=== PATIENT | male | born 1945 | race Caucasian/White ===

== ENCOUNTER 2020-06-01 15:20 | Outpatient (CLI) | payer MEDICARE, SELFPAY ==
--- NOTE | ~2020-06-01 | CT_ITS ---
EXAMINATION: CT abdomen w con DATE: 06/01/2020 17:09 INDICATION: Renal cell carcinoma. TECHNIQUE: Computed tomography (CT) of the abdomen and pelvis was performed with 100 cc Omnipaque 350 intravenous contrast. The dose-length product was 1028.39 mGy-cm. Automated exposure control and ite rative reconstruction technique were employed. COMPARISON: CT dated 09/10/2019 FINDINGS: Status post partial right nephrectomy for renal cell carcinoma. There are parapelvic and bi lateral renal cysts. Lung bases unremarkable. Cardiomegaly. There is atherosclerosis of the aorta and coronary arteries. F atty infiltration of the liver. The spleen, pancreas are unremarkable. There are stable bilateral adr enal nodules, most likely benign adenomas. Gallbladder is present. Moderate thoracic and lumbar spond ylosis. IMPRESSION: 1. Status post partial right nephrectomy for renal cell carcinoma. No evidence for residual/recurrent or metastatic disease. Reviewed, dictated and finalized at location A.
[2020-06-01 17:03] LABS: Estimated Glomerular Filt Rate > 60
== END 2020-06-01 15:21 | disposition home or self-care (01) ==
LOC: ANHIMG 15:24
PROVIDERS: PCP Internal Medicine; Visit Provider Urology
DX: C64.1 Malignant neoplasm of right kidney, except renal pelvis (principal)
CPT/HCPCS: 74160; Q9967

== ENCOUNTER 2020-10-31 09:47 | Outpatient (CLI) | payer MEDICARE, SELFPAY ==
[2020-10-31 10:17] LABS: Anion Gap 9 mmol/L (8-16); Blood Urea Nitrogen 35 mg/dL (9-20); Calcium 9.2 mg/dL (8.4-10.2); Carbon Dioxide 28 mmol/L (22-30); Chloride 99 mmol/L (98-107); Estimated Glomerular Filt Rate 59; Glucose 146 mg/dL (75-110); Potassium 4.3 mmol/L (3.4-5.0); Sodium 136 mmol/L (137-145)
[2020-10-31 11:11] LABS: Hemoglobin A1C 6.3 % (<5.7)
== END 2020-10-31 09:48 | disposition home or self-care (01) ==
LOC: ANHLAB 09:48
PROVIDERS: Family Provider Internal Medicine; PCP Internal Medicine; Visit Provider Internal Medicine
DX: E11.9 Type 2 diabetes mellitus without complications (principal)
CPT/HCPCS: 36415; 80048; 83036

== ENCOUNTER → 2021-01-23 11:14 | Outpatient (CLI) | payer MEDICARE, SELFPAY ==
--- NOTE | ~2021-01-23 | CT_ITS ---
EXAMINATION: CT abdomen wo/w con DATE: 01/23/2021 12:08 INDICATION: Renal cell carcinoma. TECHNIQUE: Computed tomography (CT) of the abdomen was performed without and with 100 mL Omnipaque 35 0 intravenous contrast. Automated exposure control and iterative reconstruction technique were employ ed. The dose-length product was 1693.64 mGy-cm. COMPARISON: CT abdomen 06/01/2020, 09/10/2019 FINDINGS: The visualized portions of the lung bases demonstrate mild atelectasis. No pleural effusion . The heart size is normal. There are coronary artery calcifications. No pericardial effusion. There is a small sliding hiatal hernia. There is diffuse hepatic steatosis. The gallbladder, spleen, and pa ncreas are normal. There are chronic low-attenuation mass in the adrenal glands measuring up to 2.7 c m on the left, consistent with adenomas. There are changes of partial right nephrectomy. There is cor tical thinning of the kidneys. There are cysts in the kidneys measuring up to 2.9 cm on the left. The re are no dilated loops of bowel. There are no pathologically enlarged lymph nodes. There is no free intraperitoneal fluid. There is moderate lumbar spondylosis. There are bridging endplate osteophytes at multiple levels in the spine, consistent with diffuse idiopathic skeletal hyperostosis (DISH). IMPRESSION: 1. Changes of partial right nephrectomy. No residual or recurrent neoplasm or metastatic disease. Reviewed, dictated and finalized at location B. IMPRESSION: 1. Changes of partial right nephrectomy. No residual or recurrent neoplasm or m etastatic disease.
[2021-01-23 11:52] LABS: Estimated Glomerular Filt Rate > 60
== END ==
PROVIDERS: Visit Provider Urology
DX: C64.1 Malignant neoplasm of right kidney, except renal pelvis (principal); I25.10 Atherosclerotic heart disease of native coronary artery without angina pectoris; M47.816 Spondylosis without myelopathy or radiculopathy, lumbar region; Z90.5 Acquired absence of kidney
CPT/HCPCS: 74170; Q9967

== ENCOUNTER → 2021-01-25 13:44 | Outpatient (CLI) | payer MEDICARE, SELFPAY ==
--- NOTE | ~2021-01-25 | XR_ITS ---
EXAMINATION: XR chest 2V DATE: 01/25/2021 14:06 INDICATION: Renal mass TECHNIQUE: PA and lateral views of the chest were obtained. COMPARISON: Chest radiograph dated 08/26/2016 FINDINGS: The lungs are clear with no focal airspace opacities, pulmonary edema, pleural effusion or pneumothor ax. The cardiomediastinal silhouette is normal. There are bridging osteophytes at multiple levels in the spine, consistent with diffuse idiopathic skeletal hyperostosis (DISH). IMPRESSION: 1. No acute cardiopulmonary disease. Reviewed, dictated and finalized at location A.
== END ==
PROVIDERS: PCP Internal Medicine; Visit Provider Urology
DX: N28.89 Other specified disorders of kidney and ureter (principal)
CPT/HCPCS: 71046

== ENCOUNTER 2021-02-24 16:38 | Emergency (ER) | payer MEDICARE, SELFPAY ==
[2021-02-24 16:52] VITALS: BP 133/73; PULSE 88; RESP 20; TEMP 36.4; O2SAT 96
[2021-02-24] MEDS: TETANUS,DIPHTHERIA,AC PERTUSSIS ADULT (0.5 ML) BOOSTRIX IM (18:17)
--- NOTE | 2021-02-24 18:24 | ED.GENADULT ---
HPI - General Adult General Chief complaint: Wound/Laceration Stated complaint: fish hook in finger Time Seen by Provider: 02/24/21 17:56 Source: patient and RN notes reviewed Mode of arrival: ambulatory Limitations: no limitations History of Present Illness HPI narrative: Patient is a 75-year-old male who presents with fishhook stuck in the right thumb patient was cleaning his tackle box when this occurred patient is unsure as to tetanus status patient notes mild aching pain presents in no distress has not taken anything for his symptoms Related Data Home Medications Medication Instructions Recorded Confirmed aspirin 325 mg PO DAILY 09/09/19 08/09/20 magnesium 200 mg PO DAILY 09/09/19 08/09/20 metoprolol tartrate 25 mg PO BID 09/09/19 08/09/20 omega 4-ohx-ihg-fish oil [Fish Oil] 1 cap PO DAILY 09/09/19 08/09/20 Allergies Allergy/AdvReac Type Severity Reaction Status Date / Time meperidine Allergy Mild Confusion Verified 08/07/20 13:17 Review of Systems Review of Systems: All systems reviewed & are unremarkable except as noted in HPI and below PMFSH Past Medical History Medical History (Updated 02/24/21 @ 18:28 by Prince Patel PA-C) Afib Arthritis Cataracts, both eyes Cellulitis CPAP (continuous positive airway pressure) dependence Diabetes Elbow fracture, right History of blood transfusion History of cardioversion x3 HTN (hypertension) Hyperlipidemia Kidney stone Peripheral neuropathy Sleep apnea Tremor of both hands Surgical History Surgical History H/O cardiac radiofrequency ablation H/O inguinal hernia repair History of bilateral knee replacement History of right hip replacement Family History Family History Mother Patient's mother is in good health Father Patient's father is in good health Sibling Patient's brother is in good health Social History Social History Smoking status: Never smoker Second hand tobacco smoke exposure: No Alcohol intake: never Substance use: never Gender identity (if verbalized by the patient): Male Spiritual care concerns: No Agree to blood products: Yes Exam Narrative: Exam Narrative: GENERAL: Well-appearing, well-nourished, and in no acute distress. HEAD: Normocephalic, atraumatic. EYES: PERRLA and EOMI. ENT: Nares clear, no rhinorrhea or epistaxis. Mucous membranes moist. EXTREMITIES: Normal range of motion. No edema. SKIN: Warm, dry, no rash. [place] lodged in the palmar aspect distal phalanx right thumb NEURO: No focal deficits. Alert and oriented x3. Neurovascularly intact PSYCH: Normal mood and affect. Course Course Emergency Course: [place] removed from thumb tetanus updated Vital Signs Vital signs: Vital Signs Temperature 97.6 F 02/24/21 16:52 Pulse Rate 88 02/24/21 16:52 Respiratory Rate 20 02/24/21 16:52 Blood Pressure 133/73 02/24/21 16:52 Pulse Oximetry 96 02/24/21 16:52 Temperature 97.6 F 02/24/21 16:52 Pulse Rate 88 02/24/21 16:52 Respiratory Rate 20 02/24/21 16:52 Blood Pressure 133/73 02/24/21 16:52 Pulse Oximetry 96 02/24/21 16:52 Procedures Other Procedure Procedure 1: Other Procedure: Patient's wound was prepped with Technicare scrub with 1% lidocaine local. Hemostats 11 blade were used to make small opening and retrieve the small metallic foreign body neurovascularly intact pre and post procedure. Pressure irrigation was used to clean the wound. Antibiotic ointment nonadhesive 4 x 4 and Coban placed post procedure Medical Decision Making MDM Narrative Medical decision making narrative: Patients injury or pain is consistent with musculoskeletal etiology. No signs of neurological or vascular compromise on exam. Compartments and tisues are soft without signs of compart
[2021-02-24 18:53] VITALS: BP 133/73; PULSE 82; RESP 19; TEMP 36.7; O2SAT 98
== END 2021-02-24 18:53 | disposition home or self-care (01) ==
LOC: ANHED 18:30
PROVIDERS: Emergency Provider Emergency Medicine; PCP Internal Medicine
DX: S61.041A Puncture wound with foreign body of right thumb without damage to nail, initial encounter (principal); Z23 Encounter for immunization; I48.91 Unspecified atrial fibrillation; I10 Essential (primary) hypertension; E78.5 Hyperlipidemia, unspecified; E11.42 Type 2 diabetes mellitus with diabetic polyneuropathy; M19.90 Unspecified osteoarthritis, unspecified site; Z87.442 Personal history of urinary calculi; Z79.82 Long term (current) use of aspirin; Z79.4 Long term (current) use of insulin; G47.30 Sleep apnea, unspecified; Z96.653 Presence of artificial knee joint, bilateral; Z96.641 Presence of right artificial hip joint; W26.8XXA Contact with other sharp object(s), not elsewhere classified, initial encounter
CPT/HCPCS: 10120; 90471; 90715; 99282

== ENCOUNTER 2021-08-22 07:59 | Outpatient (CLI) | payer MEDICARE, SELFPAY ==
[2021-08-22 08:26] LABS: Basophils Percent Auto 0.7 % (0.2-1.2); Eosinophils Absolute Auto 0.3 K/mm3 (0-0.3); Eosinophils Percent Auto 4.5 % (0-4.4); Hematocrit 43.3 % (42.0-52.0); Hemoglobin 14.3 g/dL (14.0-18.0); Immature Granulocyte Absolute 0.02 K/mm3 (0.00-0.031); Immature Granulocyte Percent A 0.3 % (0-0.5); Lymphocytes Absolute Auto 1.46 K/mm3 (0.9-3.2); Lymphocytes Percent Auto 24.6 % (18.3-44.2); Mean Corpuscular Hemoglobin 29.7 pg (26-34); Mean Platelet Volume 10.6 fl (7.4-10.4); Monocytes Absolute Auto 0.6 K/mm3 (0.1-0.6); Monocytes Percent Auto 10.3 % (2.6-8.5); Neutrophils Absolute Auto 3.5 K/mm3 (1.3-6.7); Neutrophils Percent Auto 59.6 % (45.5-73.1); Platelet Count Result 156 k/mm3 (150-375); Red Blood Count 4.81 M/mm3 (4.6-6.20); Red Cell Distribution Width 14.3 % (11.5-14.5); White Blood Count 5.9 K/mm3 (4.5-10.0)
[2021-08-22 08:41] LABS: Alanine Aminotransferase 20 U/L (4-50); Albumin Level 4.3 g/dL (3.5-5.1); Alkaline Phosphatase 50 U/L (38-126); Anion Gap 8 mmol/L (8-16); Aspartate Amino Transferase 27 U/L (17-59); Bilirubin,Total 0.6 mg/dL (0.2-1.3); Blood Urea Nitrogen 38 mg/dL (9-20); Calcium 9.4 mg/dL (8.4-10.2); Carbon Dioxide 27 mmol/L (22-30); Chloride 98 mmol/L (98-107); Cholesterol 243 mg/dL (0-200); Estimated Glomerular Filt Rate > 60; Glucose 152 mg/dL (65-110); HDL Direct 32 mg/dL; Magnesium 1.7 mg/dL (1.6-2.3); Potassium 3.9 mmol/L (3.4-5.0); Sodium 133 mmol/L (137-145); Triglycerides 213 mg/dL (<150)
[2021-08-22 08:51] LABS: LDL Cholesterol Direct 167 mg/dL
[2021-08-22 09:06] LABS: Hemoglobin A1C 7.3 % (<5.7)
[2021-08-22 09:45] LABS: Folic Acid 11.1 ng/mL (2.76->20)
== END 2021-08-22 08:00 | disposition home or self-care (01) ==
LOC: ANHLAB 08:02
PROVIDERS: PCP Internal Medicine; Visit Provider Internal Medicine
DX: E11.9 Type 2 diabetes mellitus without complications (principal); R53.83 Other fatigue; I10 Essential (primary) hypertension
CPT/HCPCS: 36415; 80053; 80061; 82607; 82746; 83036; 83735; 84443; 85025

== ENCOUNTER 2021-09-18 08:16 | Outpatient (RCR) | payer MEDICARE, SELFPAY ==
[2021-09-18] MEDS: ACETAMINOPHEN 325 MG TABLET 650 MG PO (11:36)
[2021-09-18] MEDS: diphenhydrAMINE HCl CAP 25 MG CAPSULE PO (11:37)
[2021-09-18] MEDS: FAMOTIDINE 20 MG TABLET PO (11:37)
[2021-09-18 11:45] VITALS: BP 173/80; PULSE 62; RESP 20; TEMP 36.9; O2SAT 97
[2021-09-18 13:11] VITALS: BP 164/70
--- NOTE | 2021-09-19 08:51 | PC.NURSE ---
Called Mr Guy and he is doing well this morning. He stated he slept well but did have shortness of breath yesterday. I told him that if he continues to have issues he needs to reach out to his PCP or go to the Emergency Room, and he voiced understanding, he said he feels it is not that bad though. He had no other questions at this time.
== END 2021-09-18 17:00 ==
LOC: AMCINF 08:16
PROVIDERS: PCP Internal Medicine; Visit Provider Internal Medicine Hematology & Oncology
DX: U07.1 COVID-19 (principal); E11.9 Type 2 diabetes mellitus without complications
CPT/HCPCS: A9270; M0245; Q0245

== ENCOUNTER 2022-02-10 08:52 | Outpatient (CLI) | payer MEDICARE, SELFPAY ==
--- NOTE | ~2022-02-10 | XR_ITS ---
XR chest 2V DATE: 02/10/2022 09:19 INDICATION: Renal cell carcinoma TECHNIQUE: PA and lateral views COMPARISON: 01/25/2021 2 view chest FINDINGS: Borderline heart size. Aortic calcification, ectasia and mild tortuosity. No hilar or media stinal enlargement. Mild elevation of the right leaf of the diaphragm. No pulmonary infiltrate or consolidation, pleural effusion or pulmonary vascular congestion or pneumo thorax is detected. Degenerative spurring and dextroscoliosis of the thoracic spine. IMPRESSION: Borderline heart size Aortic atherosclerosis Mild elevation right diaphragm No active pulmonary disease Reviewed, dictated and finalized at location B.
--- NOTE | ~2022-02-10 | CT_ITS ---
EXAMINATION: CT abdomen pelvis wo/w con DATE: 02/10/2022 09:47 INDICATION: Renal cell carcinoma of right kidney TECHNIQUE: Computed tomography (CT) of the abdomen and pelvis was performed without and subsequently with 100 CC Omnipaque 300 intravenous contrast. Automated exposure control and iterative reconstructi on technique were employed. Exam dose: 2670.52 mGy-cm total exam DLP. COMPARISON: 01/23/2021 CT abdomen FINDINGS: The lung bases are clear of infiltrate or consolidation. There is minimal atelectasis or sc arring at the anterior basilar right lower lobe. Normal heart size. Extensive coronary artery calcifications. There is calcification but normal calibe r of the descending thoracic aorta and abdominal aorta. There is slight left pleural effusion. No right pleural effusion. No pericardial effusion. There is hepatic steatosis. Small stones are noted in the dependent aspect of the gallbladder. No gallbladder wall thickening or pericholecystic fluid or fat stranding. No bile duct or pancreatic duct dilatation. No pancreatic mas s lesion or calcification. Normal splenic size. Small sliding hiatal hernia. Stable bilateral adrenal masses since 01/23/2021, most likely bilateral adrenal adenomas. Status post right partial nephrectomy, stable in appearance since 01/23/2021. Multiple bilateral renal cortical and parapelvic cysts. No urinary tract calculus or hydroureteronephrosis. No intraperitoneal or retroperitoneal or pelvic mass lesion or adenopathy or ascites is evident. Evaluation is limited in the pelvic area due to extensive streak artifact from bilateral hip replacem ents. No bowel obstruction, bowel wall thickening, pneumatosis or intraperitoneal free air. Small fat-containing umbilical hernia. Diffuse idiopathic skeletal hyperostosis of the thoracic spine. Multilevel degenerative disc disease of the lumbar spine. No suspicious osteolytic or osteoblastic lesions are noted. IMPRESSION: Status post right partial nephrectomy; no recurrent tumor is evident Bilateral renal cysts are again noted Stable bilateral adrenal masses, likely adenomas Suspected cholelithiasis Extensive coronary calcifications Reviewed, dictated and finalized at Location A. Reviewed, dictated and finalized at location B. IMPRESSION: Status post right partial nephrectomy; no recurrent tumor is evide nt Bilateral renal cysts are again noted Stable bilateral adrenal masses, likely adenomas Suspected cholelithiasis Extensive coronary calcifications
[2022-02-10 09:35] LABS: Estimated Glomerular Filt Rate > 60
== END 2022-02-10 08:53 | disposition home or self-care (01) ==
PROVIDERS: PCP Internal Medicine; Visit Provider Urology
DX: C64.1 Malignant neoplasm of right kidney, except renal pelvis (principal); Z90.5 Acquired absence of kidney; N28.1 Cyst of kidney, acquired; E27.9 Disorder of adrenal gland, unspecified; I25.10 Atherosclerotic heart disease of native coronary artery without angina pectoris; R91.8 Other nonspecific abnormal finding of lung field
CPT/HCPCS: 71046; 74178; Q9967

== ENCOUNTER 2022-02-16 19:45 | Emergency (ER) | payer MEDICARE, SELFPAY ==
--- NOTE | 2022-02-16 19:52 | ED.EXTPRO ---
HPI - Extremity Problem General Chief complaint: Extremity Injury, Upper Stated complaint: knot on lt wrist Time Seen by Provider: 02/16/22 20:00 Source: patient and RN notes reviewed Mode of arrival: ambulatory Limitations: no limitations History of Present Illness HPI Narrative: 76-year-old male presents concern for a knot on his left wrist. He reports for several weeks he has had a decreased talcer in his left hand and left thumb without injury. Reports yesterday he noticed a hard knot that popped up in the the left thumb on the palmar aspect of the wrist. He reports a slight burning sensation to the thumb. He was concerned that it could be a blood clot. He denies intervention for this problem. He denies decreased sensation or range of motion in the wrist or digits Related Data Home Medications Medication Instructions Recorded Confirmed aspirin 325 mg PO DAILY 09/09/19 09/18/21 magnesium 200 mg PO DAILY 09/09/19 09/18/21 metoprolol tartrate 25 mg PO BID 09/09/19 09/18/21 omega 2-yuj-dzd-fish oil [Fish Oil] 1 cap PO DAILY 09/09/19 09/18/21 Allergies Allergy/AdvReac Type Severity Reaction Status Date / Time meperidine Allergy Mild Confusion Verified 02/16/22 20:04 Review of Systems Review of Systems: CONSTITUTIONAL: Denies malaise, chills, sweats, or fever. SKIN: Denies rash or itching. Denies lacerations, abrasions, warmth, redness MUSCULOSKELETAL: Reports decreased left talcer strength, nodule on the left wrist under the first digit NEUROLOGIC: Denies numbness, weakness All systems reviewed & are unremarkable except as noted in HPI and below [facility] Past Medical History Medical History (Updated 02/16/22 @ 20:10 by Kenyetta Murphy NP) Afib Arthritis Cataracts, both eyes Cellulitis CPAP (continuous positive airway pressure) dependence Diabetes Elbow fracture, right History of blood transfusion History of cardioversion x3 HTN (hypertension) Hyperlipidemia Kidney stone Peripheral neuropathy Sleep apnea Tremor of both hands Surgical History Surgical History H/O cardiac radiofrequency ablation H/O inguinal hernia repair History of bilateral knee replacement History of right hip replacement Family History Family History Mother Patient's mother is in good health Father Patient's father is in good health Sibling Patient's brother is in good health Social History Social History Smoking status: Never smoker Second hand tobacco smoke exposure: No Alcohol intake: never Substance use: never Gender identity (if verbalized by the patient): Male Spiritual care concerns: No Agree to blood products: Yes Comments At time of signature, agree with nursing past medical, surgical, social and family history. There is no relevant family history pertinent to the presenting complaint Exam Narrative: GENERAL: Well-appearing, well-nourished, and in no acute distress. HEAD: Normocephalic, atraumatic. EYES: PERRLA, conjunctivae clear NECK: Supple. CHEST: Speaks in full sentences. No respiratory distress. HEART: Regular rate and rhythm. Normal and equal peripheral pulses. EXTREMITIES: Left wrist, hand, digits have normal strength and sensation, normal range of motion. Mild left wrist edema without erythema or ecchymosis. 5/5 strength with digit flexion and extension. Normal sensation with sensitivity to light touch and pain. No point tenderness. 2 cm firm nonfluctuant nontender nodule noted to the palmar aspect of the wrist beneath the first digit. No open wounds, no skin tenting, no devitalized tissue or atrophy, no trophic changes, no obvious deformity, alignment normal, nearby joints and structures intact. Distal pulses palpable and equal bilaterally, skin warm, dry, pink. Capillary refill less than 3 seconds. SKIN: W
[2022-02-16 19:58] VITALS: BP 168/87; PULSE 72; RESP 18; TEMP 36.3; O2SAT 98
== END 2022-02-16 20:13 | disposition home or self-care (01) ==
PROVIDERS: Emergency Provider Nurse Practitioner; PCP Internal Medicine
DX: R22.32 Localized swelling, mass and lump, left upper limb (principal); I48.91 Unspecified atrial fibrillation; M19.90 Unspecified osteoarthritis, unspecified site; H26.9 Unspecified cataract; I10 Essential (primary) hypertension; E11.42 Type 2 diabetes mellitus with diabetic polyneuropathy; G47.30 Sleep apnea, unspecified; Z96.653 Presence of artificial knee joint, bilateral; Z96.641 Presence of right artificial hip joint; Z79.82 Long term (current) use of aspirin
CPT/HCPCS: 99212; G0463

== ENCOUNTER 2022-02-21 14:06 | Outpatient (CLI) | payer MEDICARE, SELFPAY ==
[2022-02-21 10:29] LABS: Basophils Percent Auto 0.5 % (0.2-1.2); Eosinophils Absolute Auto 0.3 K/mm3 (0-0.3); Eosinophils Percent Auto 4.2 % (0-4.4); Hematocrit 44.5 % (42.0-52.0); Hemoglobin 14.2 g/dL (14.0-18.0); Immature Granulocyte Absolute 0.04 K/mm3 (0.00-0.031); Immature Granulocyte Percent A 0.7 % (0-0.5); Lymphocytes Absolute Auto 1.03 K/mm3 (0.9-3.2); Lymphocytes Percent Auto 17.4 % (18.3-44.2); Mean Corpuscular HGB Conc 31.9 g/dl (32-36); Mean Corpuscular Hemoglobin 29.2 pg (26-34); Mean Corpuscular Volume 91.4 fl (80-100); Mean Platelet Volume 11.3 fl (7.4-10.4); Monocytes Absolute Auto 0.7 K/mm3 (0.1-0.6); Monocytes Percent Auto 11.2 % (2.6-8.5); Neutrophils Absolute Auto 3.9 K/mm3 (1.3-6.7); Platelet Count Result 152 k/mm3 (150-375); Red Blood Count 4.87 M/mm3 (4.6-6.20); Red Cell Distribution Width 13.6 % (11.5-14.5); White Blood Count 5.9 K/mm3 (4.5-10.0)
[2022-02-21 10:43] LABS: Alanine Aminotransferase 23 U/L (6-50); Albumin Level 4.3 g/dL (3.5-5.1); Alkaline Phosphatase 52 U/L (38-126); Anion Gap 9 mmol/L (8-16); Aspartate Amino Transferase 27 U/L (17-59); Bilirubin,Total 0.5 mg/dL (0.2-1.3); Blood Urea Nitrogen 29 mg/dL (9-20); Calcium 9.1 mg/dL (8.4-10.2); Carbon Dioxide 24 mmol/L (22-30); Chloride 99 mmol/L (98-107); Cholesterol 261 mg/dL (0-200); Estimated Glomerular Filt Rate > 60; Glucose 204 mg/dL (65-110); HDL Direct 36 mg/dL; Potassium 4.5 mmol/L (3.4-5.0); Sodium 132 mmol/L (137-145); Triglycerides 262 mg/dL (<150)
[2022-02-21 10:55] LABS: LDL Cholesterol Direct 153 mg/dL
[2022-02-21 10:57] LABS: Creatinine Urine 76.6 mg/dL
[2022-02-21 11:01] LABS: MALB Creatinine Ratio 108.9 mg/g (0-30); Microalbumin Urine Random 83.4 mg/L (0-16.7)
[2022-02-21 11:06] LABS: Hemoglobin A1C 7.8 % (<5.7)
[2022-02-21 11:49] LABS: Folic Acid 8.5 ng/mL (2.76->20)
== END 2022-02-21 14:07 | disposition home or self-care (01) ==
LOC: ANHLAB 14:07
PROVIDERS: PCP Internal Medicine; Visit Provider Internal Medicine
DX: E11.9 Type 2 diabetes mellitus without complications (principal)
CPT/HCPCS: 36415; 80053; 80061; 82043; 82607; 82746; 83036; 84443; 85025

== ENCOUNTER 2022-05-05 12:48 | Outpatient (RCR) | payer MEDICARE, SELFPAY ==
[2022-05-05] MEDS: FAMOTIDINE 20 MG TABLET PO (14:46)
[2022-05-05] MEDS: ACETAMINOPHEN 325 MG TABLET 650 MG PO (14:46)
[2022-05-05] MEDS: diphenhydrAMINE HCl CAP 25 MG CAPSULE PO (14:46)
[2022-05-05 14:49] VITALS: BP 141/71; PULSE 71; TEMP 36.5; O2SAT 98
[2022-05-05] MEDS: BEBTELOVIMAB 175 MG/2 ML VIAL IV PUSH (15:05)
[2022-05-05 15:47] VITALS: PULSE 69; RESP 18; O2SAT 98
== END 2022-05-05 16:00 ==
LOC: AMCINF 12:48
PROVIDERS: PCP Internal Medicine; Referring Provider Internal Medicine; Visit Provider Internal Medicine Hematology & Oncology
DX: U07.1 COVID-19 (principal); C64.9 Malignant neoplasm of unspecified kidney, except renal pelvis; I10 Essential (primary) hypertension; I25.10 Atherosclerotic heart disease of native coronary artery without angina pectoris; E11.9 Type 2 diabetes mellitus without complications
CPT/HCPCS: A9270; M0222; Q0222

== ENCOUNTER 2022-08-27 11:10 | Outpatient (CLI) | payer MEDICARE, SELFPAY ==
[2022-08-27 11:55] LABS: Basophils Percent Auto 0.6 % (0.2-1.2); Eosinophils Absolute Auto 0.2 K/mm3 (0-0.3); Eosinophils Percent Auto 3.4 % (0-4.4); Hematocrit 43.8 % (42.0-52.0); Immature Granulocyte Absolute 0.03 K/mm3 (0.00-0.031); Immature Granulocyte Percent A 0.6 % (0-0.5); Lymphocytes Absolute Auto 1.12 K/mm3 (0.9-3.2); Lymphocytes Percent Auto 20.9 % (18.3-44.2); Mean Corpuscular Volume 90.9 fl (80-100); Mean Platelet Volume 10.5 fl (7.4-10.4); Monocytes Absolute Auto 0.5 K/mm3 (0.1-0.6); Monocytes Percent Auto 9.2 % (2.6-8.5); Neutrophils Absolute Auto 3.5 K/mm3 (1.3-6.7); Neutrophils Percent Auto 65.3 % (45.5-73.1); Platelet Count Result 170 k/mm3 (150-375); Red Blood Count 4.82 M/mm3 (4.6-6.20); Red Cell Distribution Width 13.7 % (11.5-14.5); White Blood Count 5.4 K/mm3 (4.5-10.0)
[2022-08-27 12:09] LABS: Alanine Aminotransferase 28 U/L (6-50); Albumin Level 4.3 g/dL (3.5-5.1); Alkaline Phosphatase 42 U/L (38-126); Anion Gap 10 mmol/L (8-16); Aspartate Amino Transferase 30 U/L (17-59); Bilirubin,Total 0.6 mg/dL (0.2-1.3); Blood Urea Nitrogen 41 mg/dL (9-20); Calcium 8.8 mg/dL (8.4-10.2); Carbon Dioxide 24 mmol/L (22-30); Chloride 101 mmol/L (98-107); Cholesterol 274 mg/dL (0-200); Estimated Glomerular Filt Rate > 60; Glucose 195 mg/dL (65-110); HDL Direct 31 mg/dL; Potassium 4.6 mmol/L (3.4-5.0); Sodium 135 mmol/L (137-145); Triglycerides 195 mg/dL (<150)
[2022-08-27 12:19] LABS: LDL Cholesterol Direct 174 mg/dL
[2022-08-27 12:34] LABS: Creatinine Urine 73.6 mg/dL
[2022-08-27 12:38] LABS: MALB Creatinine Ratio 102.4 mg/g (0-30); Microalbumin Urine Random 75.4 mg/L (0-16.7)
[2022-08-27 12:39] LABS: Prostate Specific Antigen 0.6 ng/mL (< OR = 4.0)
== END 2022-08-27 11:11 | disposition home or self-care (01) ==
LOC: ANHLAB 11:12
PROVIDERS: PCP Physician Assistant; Visit Provider Internal Medicine
DX: R53.83 Other fatigue (principal); E78.5 Hyperlipidemia, unspecified; Z12.5 Encounter for screening for malignant neoplasm of prostate
CPT/HCPCS: 36415; 80053; 80061; 82043; 82607; 82746; 84153; 84443; 85025; G0103

== ENCOUNTER 2023-04-22 08:47 | Outpatient (CLI) | payer MEDICARE, SELFPAY ==
--- NOTE | ~2023-04-22 | CT_ITS ---
CT of the Abdomen and Pelvis: Indication: Renal cell carcinoma Technique: 2.5 mm axial scans were obtained through the abdomen and pelvis prior to and following in travenous administration of 100 cc of Omnipaque 350. Dose reduction technique was used on this scan b y utilizing automated exposure control and iterative reconstruction technique. The dose-length produc t (DLP) was 2755.34 mGy-cm. COMPARISON: 02/10/2022 Findings: Scans through the lung bases are unremarkable. The liver, spleen, and pancreas are within normal limits. Probable tiny gallstones present. Bilateral adrenal nodules are unchanged from prior exam. Bilateral renal cysts are unchanged. There is a fat a ttenuation region at the anterior margin of the right kidney, unchanged from prior exam, which could reflect postoperative change versus angiomyolipoma. There are atherosclerotic calcifications of the a kylie. No lymphadenopathy. No bowel obstruction or bowel wall thickening. There is no evidence to suggest acute appendicitis. Images through the pelvis are degraded by streak artifact from bilateral hip arthroplasty. Urinary bl adder grossly unremarkable. No pelvic mass evident. No ascites seen. Impression: No evidence for active malignancy or metastatic disease. Stable probable postoperative change of the right kidney versus possibly angiomyolipoma. Stable bilateral adrenal nodules, likely adenomas. Cholelithiasis. Reviewed, dictated and finalized at location . Impression: No evidence for active malignancy or metastatic disease. Stable probable postoperative change of the right kidney versus possibly angiom yolipoma. Stable bilateral adrenal nodules, likely adenomas. Cholelithiasis.
--- NOTE | ~2023-04-22 | XR_ITS ---
Clinical Indication: Renal cell carcinoma PA and lateral views of the chest: Comparison: 02/10/2022 Findings: The lungs are clear, without evidence of focal consolidation or pleural effusion. Cardiome diastinal silhouette is stable, enlarged. Bones and soft tissues are unremarkable. Impression: Clear lungs. Please note the chest radiograph is relatively insensitive for small pulmonary metastati c disease. Stable cardiomegaly. Reviewed, dictated and finalized at location . Impression: Clear lungs. Please note the chest radiograph is relatively insensitive for sma ll pulmonary metastatic disease. Stable cardiomegaly.
[2023-04-22 09:31] LABS: Estimated Glomerular Filt Rate 58
== END 2023-04-22 08:48 | disposition home or self-care (01) ==
PROVIDERS: PCP Internal Medicine; Visit Provider Urology
DX: C64.1 Malignant neoplasm of right kidney, except renal pelvis (principal); E27.9 Disorder of adrenal gland, unspecified; K80.20 Calculus of gallbladder without cholecystitis without obstruction; I51.7 Cardiomegaly
CPT/HCPCS: 71046; 74178; Q9967

== ENCOUNTER → 2023-06-25 11:33 | Outpatient (CLI) | payer MEDICARE, SELFPAY ==
--- NOTE | ~2023-06-25 | XR_ITS ---
XR thoracic spine 3V DATE: 06/25/2023 12:32 INDICATION: Fall. Back injury, pain. TECHNIQUE: AP, lateral , swimmer views COMPARISON: None FINDINGS: There is diffuse osteopenia. Prominent degenerative disc disease at C4-5, C5-6. There is mild thoracic dextroscoliosis. No fracture or dislocation. The thoracic pedicles are intac t. There is diffuse idiopathic skeletal hyperostosis. No paraspinal soft tissue thickening. Aortic atherosclerosis. IMPRESSION: Diffuse idiopathic skeletal hyperostosis of the thoracic spine Mild thoracic dextro scoliosis Osteopenia Reviewed, dictated and finalized at location A.
== END ==
PROVIDERS: PCP Internal Medicine; Visit Provider Physician Assistant
DX: M85.88 Other specified disorders of bone density and structure, other site (principal); M41.9 Scoliosis, unspecified
CPT/HCPCS: 72072

== ENCOUNTER 2023-08-05 01:06 | Day surgery (SDC) | payer MEDICARE, SELFPAY ==
[2023-08-05] VITALS (10 sets, daily range): BP systolic 103–160; BP diastolic 69–105; PULSE 66–97; RESP 16–23; TEMP 36.7; O2SAT 92–98; BMI 38.0
--- NOTE | 2023-08-05 08:30 | ECG_ITS ---
Measurements Intervals [place] Rate: 72 P: 58 [place]: 240 QRS: -50 QRSD: 169 T: -20 QT: 441 QTc: 484 Interpretive Statements SINUS RHYTHM WITH FIRST DEGREE AV BLOCK ATRIAL AND VENTRICULAR PREMATURE COMPLEXES WITH OCCASIONAL SUPRAVENTRICULAR PREMAT RIGHT BUNDLE BRANCH BLOCK LEFT ANTERIOR FASCICULAR BLOCK CANNOT RULE OUT SEPTAL INFARCT, AGE INDETERMINATE ABNORMAL ECG COMPARED TO ECG 08/05/2023 08:50:39 SINUS RHYTHM NOW PRESENT FIRST DEGREE AV BLOCK NOW PRESENT Electronically Signed On 08-05-2023 10:58:00 CDT by Bishnu Florence D.O.
--- NOTE | 2023-08-05 09:06 | WPDMODSED ---
Moderate Sedation Note-Pt Data Patient Data Diagnosis: Atrial fibrillation Present Complaint: Atrial fibrillation Procedure to be performed/Plan: Electrical cardioversion Moderate sedation Allergies Allergy/AdvReac Type Severity Reaction Status Date / Time meperidine AdvReac Mild Confusion Verified 08/05/23 08:44 Home Medications Medication Instructions Recorded Confirmed Type magnesium 200 mg tablet 400 mg PO DAILY 09/09/19 08/05/23 History metoprolol tartrate 25 mg tablet 25 mg PO BID 09/09/19 08/05/23 History omega 5-xtd-mgr-fish oil 1,000 mg 1 cap PO DAILY 09/09/19 08/05/23 History (120 mg-180 mg) capsule (Fish Oil) blood sugar diagnostic #360 ea 08/05/22 03/23/23 Rx lancets (OneTouch UltraSoft #300 ea 08/05/22 03/23/23 Rx Lancets) blood sugar diagnostic (Blood #350 ea 08/06/22 03/23/23 Rx Glucose Test strips) hydrochlorothiazide 25 mg tablet 25 mg PO DAILY #90 tabs 01/04/23 08/05/23 Rx pen needle, diabetic 31 gauge x #100 ea 02/02/23 03/23/23 Rx 3/16 (BD Ultra-Fine Mini Pen Needle) ramipril 10 mg capsule 10 mg PO DAILY #90 caps 02/02/23 08/05/23 Rx metformin 1,000 mg tablet 1,000 mg PO BID #180 tabs 03/25/23 08/05/23 Rx primidone 50 mg tablet 50 mg PO HS #90 tabs 03/25/23 08/05/23 Rx insulin glargine U-300 conc 300 26 unit (0.0867 mL) subcut DAILY 04/16/23 08/05/23 Rx unit/mL (3 mL) subcutaneous pen #9 mL (Toujeo Max U-300 SoloStar) glimepiride 4 mg tablet 4 mg PO BID #180 tabs 06/19/23 08/05/23 Rx tizanidine 4 mg tablet 4 mg PO QHS PRN muscle spasticity 06/29/23 08/04/23 Rx #14 tabs apixaban 5 mg tablet (Eliquis) 5 mg PO BID 08/04/23 08/05/23 History furosemide 20 mg tablet 20 mg PO QAM PRN Swelling 08/05/23 08/05/23 History Current Medications: Active Medications Sodium Chloride (Normal Saline Iv) 1,000 mls @ 30 mls/hr IV CONT .Q24H LATISHA Sedation/Anesthesia: No previous sedation/anesthesia problems (including family history). [facility] Past Medical History Medical History Afib Arthritis BMI 39.0-39.9,adult Cataracts, both eyes Cellulitis CPAP (continuous positive airway pressure) dependence Diabetes Elbow fracture, right History of blood transfusion History of cardioversion x3 HTN (hypertension) Hyperlipidemia Kidney stone Peripheral neuropathy Sleep apnea Tremor of both hands Surgical History Surgical History H/O cardiac radiofrequency ablation H/O inguinal hernia repair History of bilateral knee replacement History of right hip replacement Family History Family History Mother Patient's mother is in good health Father Patient's father is in good health Sibling Patient's brother is in good health Social History Social History Smoking status: Never smoker Second hand tobacco smoke exposure: No Alcohol intake: never Substance use: never Lack of Transportation: No Lack of Food: Never True Current Housing: I Have Housing Concerned About Future Housing: No Difficulty Paying Gas/Electric Bills: No Difficulty Paying for Meds: No Currently Unemployed: No Education: High School Diploma/GED Difficulty w/ Childcare or Family Care: No Living arrangements: with family Gender identity (if verbalized by the patient): Male Spiritual care concerns: No Agree to blood products: Yes Mod Sed Physical Exam Physical Exam Pre Procedural Exam: Normal: Appearance, Eyes, Ears, Nose, Neck, Throat, Airway, Lungs, Heart Size, Heart Rate, Neuro Exam, Extremities and Skin and Variation: Heart Rhythm (Irregular irregular) Hours since solid foods: 12 Hours since liquid intake: 12 Mallampati Classification: class II Internal Medicine - PN: Obj Da Meds/Results Medications: Active Medications Gener
[2023-08-05 09:38] LABS: Anion Gap 10 mmol/L (8-16); Blood Urea Nitrogen 30 mg/dL (9-20); Calcium 8.9 mg/dL (8.4-10.2); Carbon Dioxide 25 mmol/L (22-30); Chloride 100 mmol/L (98-107); Estimated CRCL calculation 67 ml/min; Estimated Glomerular Filt Rate > 60; Glucose 228 mg/dL (65-110); Magnesium 1.4 mg/dL (1.6-2.3); Potassium 4.1 mmol/L (3.4-5.0); Sodium 135 mmol/L (137-145)
[2023-08-05] MEDS: MAGNESIUM SULFATE 3GM/D5W100ML 3 GM/100 ML BAG IVPB (09:53)
--- NOTE | 2023-08-05 10:15 | ECG_ITS ---
Measurements Intervals [place] Rate: 89 P: [place]: 0 QRS: -48 QRSD: 165 T: -19 QT: 407 QTc: 496 Interpretive Statements ATRIAL FIBRILLATION RIGHT BUNDLE BRANCH BLOCK LEFT ANTERIOR FASCICULAR BLOCK LOW VOLTAGE- PRECORDIAL LEADS ABNORMAL ECG NO PREVIOUS ECG AVAILABLE FOR COMPARISON Electronically Signed On 08-05-2023 9:12:34 CDT by Bishnu Florence D.O.
--- NOTE | 2023-08-05 10:40 | WPDCARDVER ---
Cardioversion Cardioversion Date of procedure: 08/05/23 Procedure: 1. Moderate sedation 2. Electrical cardioversion Pre-op diagnosis: Atrial fibrillation Post-op diagnosis: Same Indications: Atrial fibrillation Description of procedure: After discussing the risks, benefits and alternatives of the procedure patient agreed via verbal and written informed consent. Risks discussed included stroke, , skin irritation or burn, shocking into more problematic heart rhythm, adverse reaction to anesthesia. After establishing to continuous telemetry monitoring, pulse oxygenation in serial blood pressure assessments, time-out was taken the procedure was started Procedure start time 10:23 a.m. Procedure stop time 10:34 a.m. Complications: None Blood loss: None Medications used: A total of 4 mg of Versed and 50 mcg of fentanyl given in divided dosages Medications were administered and patient was monitored by Roque Sarabia RN After adequate sedation, 175 joules of synchronized biphasic energy was used to restore sinus rhythm from atrial fibrillation. Sedation: As above Findings: Successful confucianist of sinus rhythm using 175 joules of biphasic synchronized energy Conclusion: 1. Moderate sedation 2. Successful confucianist of normal sinus rhythm using 175 joules of synchronized biphasic energy
== END 2023-08-05 11:48 | disposition home or self-care (01) ==
PROVIDERS: PCP Internal Medicine; Visit Provider Internal Medicine Cardiovascular Disease
PROC: 5A2204Z Restoration of Cardiac Rhythm, Single (ICD-10-PCS; principal; 2023-08-05 10:00)
DX: I48.91 Unspecified atrial fibrillation (principal); I10 Essential (primary) hypertension; E11.40 Type 2 diabetes mellitus with diabetic neuropathy, unspecified; E78.5 Hyperlipidemia, unspecified; G47.30 Sleep apnea, unspecified; Z79.84 Long term (current) use of oral hypoglycemic drugs; Z79.01 Long term (current) use of anticoagulants; Z79.4 Long term (current) use of insulin
CPT/HCPCS: 36415; 80048; 83735; 92960; J2250; J3010; J3475; J7030

== ENCOUNTER 2023-09-15 00:50 | Day surgery (SDC) | payer MEDICARE, SELFPAY ==
[2023-09-14 13:42] VITALS: BMI 39.2
[2023-09-15] VITALS (17 sets, daily range): BP systolic 101–137; BP diastolic 74–92; PULSE 76–99; RESP 16–22; TEMP 36.4; O2SAT 91–97; BMI 38.0
[2023-09-15 09:00] LABS: Basophils Percent Auto 0.5 % (0.2-1.2); Eosinophils Absolute Auto 0.2 K/mm3 (0-0.3); Eosinophils Percent Auto 2.9 % (0-4.4); Hematocrit 47.6 % (42.0-52.0); Hemoglobin 15.2 g/dL (14.0-18.0); Immature Granulocyte Absolute 0.05 K/mm3 (0.00-0.031); Immature Granulocyte Percent A 0.6 % (0-0.5); Lymphocytes Percent Auto 23.7 % (18.3-44.2); Mean Corpuscular HGB Conc 31.9 g/dl (32-36); Mean Corpuscular Hemoglobin 27.9 pg (26-34); Mean Corpuscular Volume 87.3 fl (80-100); Mean Platelet Volume 10.7 fl (7.4-10.4); Monocytes Absolute Auto 0.7 K/mm3 (0.1-0.6); Monocytes Percent Auto 8.6 % (2.6-8.5); Neutrophils Absolute Auto 5.1 K/mm3 (1.3-6.7); Neutrophils Percent Auto 63.7 % (45.5-73.1); Platelet Count Result 154 k/mm3 (150-375); Red Blood Count 5.45 M/mm3 (4.6-6.20); Red Cell Distribution Width 14.6 % (11.5-14.5)
[2023-09-15 09:10] LABS: Anion Gap 10 mmol/L (8-16); Blood Urea Nitrogen 36 mg/dL (9-20); Calcium 9.4 mg/dL (8.4-10.2); Carbon Dioxide 23 mmol/L (22-30); Chloride 101 mmol/L (98-107); Estimated CRCL calculation 62 ml/min; Estimated Glomerular Filt Rate 58; Glucose 196 mg/dL (65-110); Potassium 4.4 mmol/L (3.4-5.0); Sodium 134 mmol/L (137-145)
[2023-09-15] MEDS: HYDROcodone/acetaminophen (*CRX) 5-325 MG TABLET 1 TAB PO (10:11)
--- NOTE | 2023-09-15 11:00 | PM.IMHP ---
H&P: HPI History of Present Illness Date/Time: 09/15/23 11:00 Chief Complaint: Abnormal stress test Narrative: Jurgen Guy is an 78 year old male with paroxysmal atrial fibrillation, history of cardiomyopathy, morbid obesity, chronic back pain, insulin dependent diabetes, hypertension, hyperlipidemia, MARQUIS who is referred for [facility] for abnormal nuclear stress test. MPI shows LVEF 24%. There is ischemia in the apical to mid anterior, anterolateral cadet. Rachelle-infarct ischemia in the apical to mid inferior cadet. Review of Systems Review of Systems: All systems reviewed & are unremarkable except as noted in HPI and below (HPI) [facility] Past Medical History Medical History Afib Arthritis BMI 39.0-39.9,adult Cataracts, both eyes Cellulitis CPAP (continuous positive airway pressure) dependence Diabetes Elbow fracture, right History of blood transfusion History of cardioversion x3 HTN (hypertension) Hyperlipidemia Kidney stone Peripheral neuropathy Sleep apnea Tremor of both hands Surgical History Surgical History H/O cardiac radiofrequency ablation H/O inguinal hernia repair History of bilateral knee replacement History of right hip replacement Family History Family History Mother Patient's mother is in good health Father Patient's father is in good health Sibling Patient's brother is in good health Social History Social History Smoking status: Never smoker Second hand tobacco smoke exposure: No Alcohol intake: never Substance use: never Substance use type: does not use Lack of Transportation: No Lack of Food: Never True Current Housing: I Have Housing Concerned About Future Housing: No Difficulty Paying Gas/Electric Bills: No Difficulty Paying for Meds: No Currently Unemployed: No Education: High School Diploma/GED Difficulty w/ Childcare or Family Care: No Living arrangements: with family Gender identity (if verbalized by the patient): Male Spiritual care concerns: No Agree to blood products: Yes Meds Home Medications and Allergies Home Medications Medication Instructions Recorded Confirmed Type magnesium 200 mg tablet 400 mg PO DAILY 09/09/19 09/14/23 History metoprolol tartrate 25 mg tablet 25 mg PO BID 09/09/19 09/14/23 History omega 9-ula-aek-fish oil 1,000 mg 1 cap PO DAILY 09/09/19 09/14/23 History (120 mg-180 mg) capsule (Fish Oil) blood sugar diagnostic #360 ea 08/05/22 03/23/23 Rx lancets (OneTouch UltraSoft #300 ea 08/05/22 03/23/23 Rx Lancets) blood sugar diagnostic (Blood #350 ea 08/06/22 03/23/23 Rx Glucose Test strips) pen needle, diabetic 31 gauge x #100 ea 02/02/23 03/23/23 Rx 3/16 (BD Ultra-Fine Mini Pen Needle) glimepiride 4 mg tablet 4 mg PO BID #180 tabs 06/19/23 09/14/23 Rx tizanidine 4 mg tablet 4 mg PO QHS PRN muscle spasticity 06/29/23 09/14/23 Rx #14 tabs apixaban 5 mg tablet (Eliquis) 5 mg PO BID 08/04/23 09/14/23 History furosemide 20 mg tablet 20 mg PO QAM PRN Swelling 08/05/23 09/14/23 History ramipril 10 mg capsule 10 mg PO DAILY #90 caps 08/06/23 09/14/23 Rx insulin glargine U-300 conc 300 26 unit (0.0867 mL) subcut DAILY 08/24/23 09/14/23 Rx unit/mL (3 mL) subcutaneous pen #9 mL (Toujeo Max U-300 SoloStar) hydrochlorothiazide 25 mg tablet 25 mg PO DAILY #90 tabs 09/02/23 09/14/23 Rx metformin 1,000 mg tablet 1,000 mg PO BID #180 tabs 09/02/23 09/14/23 Rx primidone 50 mg tablet 50 mg PO HS #90 tabs 09/02/23 09/14/23 Rx Allergies Allergy/AdvReac Type Severity Reaction Status Date / Time meperidine AdvReac Mild Confusion Verified 09/15/23 08:48 Vital Signs Vital Signs - 24 hr 09/15/23 08:51 Temperature 36.4 C Pulse Rate 76 Respiratory Rate 16 Blood Pressure 137/
--- NOTE | 2023-09-15 11:05 | WPDMODSED ---
Moderate Sedation Note-Pt Data Patient Data Diagnosis: Abnormal stress test Present Complaint: Abnormal stress test Procedure to be performed/Plan: Coronary angiography, left heart cath, +/- PCI Allergies Allergy/AdvReac Type Severity Reaction Status Date / Time meperidine AdvReac Mild Confusion Verified 09/15/23 08:48 Home Medications Medication Instructions Recorded Confirmed Type magnesium 200 mg tablet 400 mg PO DAILY 09/09/19 09/14/23 History metoprolol tartrate 25 mg tablet 25 mg PO BID 09/09/19 09/14/23 History omega 9-mwp-bsg-fish oil 1,000 mg 1 cap PO DAILY 09/09/19 09/14/23 History (120 mg-180 mg) capsule (Fish Oil) blood sugar diagnostic #360 ea 08/05/22 03/23/23 Rx lancets (OneTouch UltraSoft #300 ea 08/05/22 03/23/23 Rx Lancets) blood sugar diagnostic (Blood #350 ea 08/06/22 03/23/23 Rx Glucose Test strips) pen needle, diabetic 31 gauge x #100 ea 02/02/23 03/23/23 Rx 3/16 (BD Ultra-Fine Mini Pen Needle) glimepiride 4 mg tablet 4 mg PO BID #180 tabs 06/19/23 09/14/23 Rx tizanidine 4 mg tablet 4 mg PO QHS PRN muscle spasticity 06/29/23 09/14/23 Rx #14 tabs apixaban 5 mg tablet (Eliquis) 5 mg PO BID 08/04/23 09/14/23 History furosemide 20 mg tablet 20 mg PO QAM PRN Swelling 08/05/23 09/14/23 History ramipril 10 mg capsule 10 mg PO DAILY #90 caps 08/06/23 09/14/23 Rx insulin glargine U-300 conc 300 26 unit (0.0867 mL) subcut DAILY 08/24/23 09/14/23 Rx unit/mL (3 mL) subcutaneous pen #9 mL (Toujeo Max U-300 SoloStar) hydrochlorothiazide 25 mg tablet 25 mg PO DAILY #90 tabs 09/02/23 09/14/23 Rx metformin 1,000 mg tablet 1,000 mg PO BID #180 tabs 09/02/23 09/14/23 Rx primidone 50 mg tablet 50 mg PO HS #90 tabs 09/02/23 09/14/23 Rx Current Medications: Active Medications Sodium Chloride (Normal Saline Iv) 500 mls @ 100 mls/hr IV CONT .Q5H LATISHA Sedation/Anesthesia: No previous sedation/anesthesia problems (including family history). [facility] Past Medical History Medical History Afib Arthritis BMI 39.0-39.9,adult Cataracts, both eyes Cellulitis CPAP (continuous positive airway pressure) dependence Diabetes Elbow fracture, right History of blood transfusion History of cardioversion x3 HTN (hypertension) Hyperlipidemia Kidney stone Peripheral neuropathy Sleep apnea Tremor of both hands Surgical History Surgical History H/O cardiac radiofrequency ablation H/O inguinal hernia repair History of bilateral knee replacement History of right hip replacement Family History Family History Mother Patient's mother is in good health Father Patient's father is in good health Sibling Patient's brother is in good health Social History Social History Smoking status: Never smoker Second hand tobacco smoke exposure: No Alcohol intake: never Substance use: never Substance use type: does not use Lack of Transportation: No Lack of Food: Never True Current Housing: I Have Housing Concerned About Future Housing: No Difficulty Paying Gas/Electric Bills: No Difficulty Paying for Meds: No Currently Unemployed: No Education: High School Diploma/GED Difficulty w/ Childcare or Family Care: No Living arrangements: with family Gender identity (if verbalized by the patient): Male Spiritual care concerns: No Agree to blood products: Yes Mod Sed Physical Exam Physical Exam Pre Procedural Exam: Normal: Lungs, Neuro Exam, Abdomen, Extremities and Skin and Variation: Appearance (Morbidly obese) and Heart Rhythm (Atrial fibrillation, rate controlled) Hours since solid foods: 12 Hours since liquid intake: 8 Mallampati Classification: class III Internal Medicine - PN: Obj Da Vital Signs Vital Signs: Vital Signs - 24 hr
--- NOTE | 2023-09-15 11:07 | WPDCARDPROC ---
Cardiac Cath Procedure Note Date of procedure:: 09/15/23 Performing physician:: CATHETERIZATION LABORATORY REPORT Procedure Date: 09/15/2023 Culinary Assistant: Mahsa Geller M.D., [facility]? Referring Physician: Jose Bradshaw M.D. ? Anesthesia: Versed and Fentanyl were ordered and given in my presence at 10:27, procedure ended at 10:56. Supervision of nurse monitored moderate sedation with Versed and Fentanyl was provided for 29 minutes. Total of Versed 1mg and Fentanyl 25mcg were administered by the Software Packager RN Mckenna Becerra. Pre-op Diagnosis: Coronary artery disease Post-op Diagnosis: Multivessel coronary artery disease involving the LAD, Diagonal, distal LCX, and RPDA. Procedure(s): 1. Moderate sedation 2. Ultrasound-guided access of the right radial artery 3. Coronary angiography Access Site: Right radial artery Brief History and Clinical Indications: Patient is an 78 year old male with paroxysmal atrial fibrillation, history of cardiomyopathy, morbid obesity, chronic back pain, insulin dependent diabetes, hypertension, hyperlipidemia, MARQUIS who is referred for [facility] for abnormal nuclear stress test. MPI shows LVEF 24%. There is ischemia in the apical to mid anterior, anterolateral cadet. Rachelle-infarct ischemia in the apical to mid inferior cadet. All risks, benefits and alternatives to left heart catheterization with or without percutaneous coronary intervention was discussed at length with the patient. Risk of complications including but not limited to bleeding, infection, arrhythmia, stroke, worsening kidney function, blood loss, groin hematoma, limb loss, emergency coronary artery bypass grafting, and even were discussed with the patient and all questions were answered. The patient understood and wished to proceed. Time out called, patient name, date of , medical record number, allergies, procedure performed, identify Culinary Assistant, patient and staff member concurred with accurate data, procedure carried on. Findings: LEFT HEART CATHETERIZATION FINDINGS: 1. Left main: Calcifications seen in the left main. Large caliber vessel. The distal portion is ectatic. The left main coronary artery is widely patent without any significant obstructive disease. 2. Left anterior descending: Heavy calcifications seen in the proximal and mid LAD. The proximal LAD has diffuse mild disease. Immediately after the bifurcation of a large caliber first diagonal branch, the LAD has a heavily calcific 70-80% stenosis. The first diagonal branch is a large caliber vessel with diffuse disease with a 99% stenosis in the mid portion. 3. Ramus: The Ramus is a medium caliber vessel that bifurcates into two branches. The lower branch has moderate stenosis. 4. Left circumflex: Heavy calcifications seen in the proximal LCX. There is diffuse mild disease in the proximal-mid portions of the left circumflex. The distal left circumflex has diffuse disease with a 70-80% stenosis. OM-1 is a large caliber vessel with diffuse mild disease. OM-2 is a large caliber vessel with diffuse mild disease. 5. Right coronary artery: Heavy calcifications are seen throughout the RCA. The RCA has diffuse mild disease with a moderate stenosis in the mid portion. The RPDA has moderate ostial stenosis. The mid portion has an 80-90% stenosis. Description of Procedure: Informed consent signed and placed in the chart. Patient transferred to ship laborer room. Prepped and draped in usual sterile fashion. 2% lidocaine injected subcutaneously in right wrist area. 22-gauge venipuncture catheter used to access the right radial artery under ultrasound guidance. 6-FR slender sheath placed in right radial artery. Nitroglycerine and Verapamil were given intraarterial through the sheath. Versacore wire advanced under fluoroscopy 5F Tig 4 diagnostic catheter engaged Left Main Coronary Artery. 5F Tig 4 diagnostic catheter engaged Right Coronary Artery Multiple orthogonal angiogram
== END 2023-09-15 15:25 | disposition home or self-care (01) ==
PROVIDERS: PCP Internal Medicine; Visit Provider Internal Medicine
PROC: (CPT 93454; principal; 2023-09-15 10:00)
DX: I25.10 Atherosclerotic heart disease of native coronary artery without angina pectoris (principal); R94.39 Abnormal result of other cardiovascular function study; E11.42 Type 2 diabetes mellitus with diabetic polyneuropathy; I10 Essential (primary) hypertension; E78.5 Hyperlipidemia, unspecified; G47.33 Obstructive sleep apnea (adult) (pediatric); I48.0 Paroxysmal atrial fibrillation; E66.9 Obesity, unspecified; Z68.38 Body mass index [BMI] 38.0-38.9, adult; Z79.84 Long term (current) use of oral hypoglycemic drugs; Z79.01 Long term (current) use of anticoagulants; Z79.4 Long term (current) use of insulin
CPT/HCPCS: 36415; 80048; 85025; 93454; A9270; C1769; C1887; C1894; J1644; J2250; J2305; J3010; J7040

== ENCOUNTER 2023-09-15 21:24 | Emergency (ER) | payer MEDICARE, SELFPAY ==
--- NOTE | ~2023-09-15 | CT_ITS ---
EXAMINATION: CT brain wo con DATE: 09/15/2023 22:23 INDICATION: vision change . TECHNIQUE: Computed tomography (CT) of the head was performed without intravenous contrast. The mA wa s adjusted according to patient size. Iterative reconstruction technique was employed. The dose-lengt h product was 681.00 mGy-cm. COMPARISON: 01/16/2012. FINDINGS: No acute intracranial hemorrhage or extra-axial fluid collection. No hydrocephalus, mass, or herniation. No acute ischemic infarct. Unremarkable dural venous sinus attenuation. No acute osseous abnormality. Mild mucosal thickening in the maxillary sinuses and ethmoid air cells, the remaining aerated spaces are clear. Moderate atrophy and chronic white matter change. Atherosclerotic intracranial calcification. 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 IMPRESSION: No acute intracranial process. Reviewed, dictated and finalized at location K. N FARMWORKER
--- NOTE | ~2023-09-15 | CT_ITS ---
CT ANGIOGRAM NECK AND HEAD History: Vision change. Technique: Serial spiral axial images through the head and neck were obtained during arterial phase I V injection of 100 cc of Omnipaque 350. 3-D postprocessing and MIP images were then reconstructed on the remote workstation. Dose reduction technique was used on this scan by utilizing automated exposur e control and iterative reconstruction technique. The dose-length product (DLP) was 1228.65 mGy-cm. CTA neck findings: Bilateral vertebral arteries are patent. There are focal high-grade stenosis at t he bilateral distal vertebral arteries. Bilateral common carotid, internal carotid, and external harrison tid arteries are patent. No stenosis or aneurysm of these vessels. No large vessel occlusion. The pro ximal right internal carotid artery demonstrates 0% stenosis relative to the normal distal artery lum en diameter. The proximal left internal carotid artery demonstrates 0% stenosis relative to the darvin l distal artery lumen diameter. CTA head findings: Basilar artery and posterior cerebral arteries are patent. Distal internal carotid arteries, middle cerebral arteries, and anterior cerebral arteries are patent. No large vessel occlu cynthia. No aneurysm. There are atherosclerotic calcifications in the cavernous portions of the distal i nternal carotid arteries, probable moderate stenosis at the supraclinoid portion of the distal right internal carotid artery. Impression: Focal high-grade stenoses of the distal bilateral vertebral arteries. Moderate stenosis of the supraclinoid portion of the distal right internal carotid artery. Reviewed, dictated and finalized at location . NTIFIC PROGRAMMER Impression: Focal high-grade stenoses of the distal bilateral vertebral arteries. Moderate stenosis of the supraclinoid portion of the distal right internal harrison tid artery.
[2023-09-15 21:27] VITALS: BP 152/87; PULSE 109; RESP 16; TEMP 36.6; O2SAT 95
--- NOTE | 2023-09-15 21:33 | PC.NURSE ---
Patient states he was told he has four occlusions with plans to have surgery at a later time. Plans to follow up with Dr. Mejia on Thursday.
[2023-09-15 21:44] VITALS: BP 154/100; PULSE 102; PULSE 103; RESP 24; TEMP 36.7; O2SAT 93
--- NOTE | 2023-09-15 21:53 | ECG_ITS ---
Measurements Intervals [place] Rate: 94 P: [place]: 0 QRS: -74 QRSD: 158 T: 57 QT: 406 QTc: 510 Interpretive Statements ATRIAL FIBRILLATION WITH ABERRANT CONDUCTION OR VENTRICULAR PREMATURE COMPLEXES RIGHT BUNDLE BRANCH BLOCK [120+ ms QRS DURATION, UPRIGHT V1, 40+ ms S IN I/aVL/V4/V5/V6] LEFT ANTERIOR FASCICULAR BLOCK [QRS AXIS <= -45, QR IN I, RS IN II] POSSIBLE ANTERIOR MYOCARDIAL INFARCTION , PROBABLY OLD [30 ms Q WAVE IN V3/V4, OR R < 0.2 mV IN V4] ABNORMAL ECG COMPARED TO ECG 08/05/2023 10:46:40 ATRIAL FIBRILLATION NOW PRESENT ABERRANT CONDUCTION OF SUPRAVENTRICULAR BEAT(S) NOW PRESENT Electronically Signed On 09-16-2023 10:36:55 SUCTION PLATE ROLLER HAND by Efren Bradshaw M.D.
[2023-09-15 22:09] LABS: Basophils Percent Auto 0.4 % (0.2-1.2); Eosinophils Absolute Auto 0.2 K/mm3 (0-0.3); Eosinophils Percent Auto 2.5 % (0-4.4); Hematocrit 46.1 % (42.0-52.0); Hemoglobin 14.7 g/dL (14.0-18.0); Immature Granulocyte Absolute 0.04 K/mm3 (0.00-0.031); Immature Granulocyte Percent A 0.5 % (0-0.5); Lymphocytes Absolute Auto 1.43 K/mm3 (0.9-3.2); Lymphocytes Percent Auto 18.6 % (18.3-44.2); Mean Corpuscular HGB Conc 31.9 g/dl (32-36); Mean Corpuscular Hemoglobin 27.8 pg (26-34); Mean Corpuscular Volume 87.1 fl (80-100); Mean Platelet Volume 10.5 fl (7.4-10.4); Monocytes Absolute Auto 0.7 K/mm3 (0.1-0.6); Monocytes Percent Auto 9.1 % (2.6-8.5); Neutrophils Absolute Auto 5.3 K/mm3 (1.3-6.7); Neutrophils Percent Auto 68.9 % (45.5-73.1); Platelet Count Result 151 k/mm3 (150-375); Red Blood Count 5.29 M/mm3 (4.6-6.20); Red Cell Distribution Width 14.5 % (11.5-14.5); White Blood Count 7.7 K/mm3 (4.5-10.0)
[2023-09-15 22:20] LABS: INR 1.1; Prothrombin Time 14.8 Seconds (11.1-14.7)
[2023-09-15 22:34] VITALS: PULSE 96
[2023-09-15 22:39] LABS: Alanine Aminotransferase 20 U/L (6-50); Albumin Level 3.9 g/dL (3.5-5.1); Alkaline Phosphatase 58 U/L (38-126); Anion Gap 9 mmol/L (8-16); Aspartate Amino Transferase 24 U/L (17-59); Bilirubin,Total 0.5 mg/dL (0.2-1.3); Blood Urea Nitrogen 30 mg/dL (9-20); Carbon Dioxide 24 mmol/L (22-30); Chloride 101 mmol/L (98-107); Estimated CRCL calculation 74 ml/min; Estimated Glomerular Filt Rate > 60; Glucose 255 mg/dL (65-110); Sodium 134 mmol/L (137-145)
[2023-09-15 23:18] VITALS: BP 147/98; PULSE 90; RESP 23; O2SAT 94
[2023-09-16] VITALS (11 sets, daily range): BP systolic 115–153; BP diastolic 75–119; PULSE 84–99; RESP 19–27; TEMP 36.3; O2SAT 93–96
--- NOTE | 2023-09-16 00:20 | ED.GENADULT ---
HPI - General Adult General Chief complaint: Unspecified Stated complaint: seeing double after heart cath today Time Seen by Provider: 09/15/23 21:53 History of Present Illness HPI narrative: the patient presents to the emergency department with his son. He had a cardiac catheterization earlier today. Four vessel blockage found. Delay bypass surgery. However after the procedure he was groggy and did not open his eyes. He eventually he went home and went back to sleep. However when he woke up he had double vision. If he focuses on an object the double vision resolves however with any movement it returns. Denies blurry vision. Denies all other review of systems Related Data Home Medications Medication Instructions Recorded Confirmed magnesium 200 mg tablet 400 mg PO DAILY 09/09/19 09/14/23 metoprolol tartrate 25 mg tablet 25 mg PO BID 09/09/19 09/14/23 omega 8-eap-kjn-fish oil 1,000 mg 1 cap PO DAILY 09/09/19 09/14/23 (120 mg-180 mg) capsule (Fish Oil) apixaban 5 mg tablet (Eliquis) 5 mg PO BID 08/04/23 09/14/23 furosemide 20 mg tablet 20 mg PO QAM PRN Swelling 08/05/23 09/14/23 Allergies Allergy/AdvReac Type Severity Reaction Status Date / Time meperidine AdvReac Mild Confusion Verified 09/15/23 08:48 Review of Systems Review of Systems: review of systems negative except what is documented in the HPI [facility] Past Medical History Medical History Afib Arthritis BMI 39.0-39.9,adult Cataracts, both eyes Cellulitis CPAP (continuous positive airway pressure) dependence Diabetes Elbow fracture, right History of blood transfusion History of cardioversion x3 HTN (hypertension) Hyperlipidemia Kidney stone Peripheral neuropathy Sleep apnea Tremor of both hands Surgical History Surgical History H/O cardiac radiofrequency ablation H/O inguinal hernia repair History of bilateral knee replacement History of right hip replacement Family History Family History Mother Patient's mother is in good health Father Patient's father is in good health Sibling Patient's brother is in good health Social History Social History Smoking status: Never smoker Second hand tobacco smoke exposure: No Alcohol intake: never Substance use: never Substance use type: does not use Lack of Transportation: No Lack of Food: Never True Current Housing: I Have Housing Concerned About Future Housing: No Difficulty Paying Gas/Electric Bills: No Difficulty Paying for Meds: No Currently Unemployed: No Education: High School Diploma/GED Difficulty w/ Childcare or Family Care: No Living arrangements: with family Gender identity (if verbalized by the patient): Male Spiritual care concerns: No Agree to blood products: Yes Exam Narrative: GENERAL: Well-appearing, well-nourished, and in no acute distress. HEAD: Normocephalic, atraumatic. EYES: PERRLA and EOMI. right eye delay moving laterally ENT: Nares clear, no rhinorrhea or epistaxis. Mucous membranes moist. NECK: Supple. CHEST: Clear to auscultation. No respiratory distress. HEART: Regular rate and rhythm. ABDOMEN: Soft, nontender, nondistended. EXTREMITIES: Normal range of motion. No edema. SKIN: Warm, dry, no rash. NEURO: No focal deficits. Alert and oriented x3. PSYCH: Normal mood and affect. Course Course Emergency Course: extraocular eye movements not fluid bilaterally resulting in double vision. Extraocular no palsy considered and concerning for possible stroke. CTA pending. Will plan to admit for Neurology consult in the morning Vital Signs Vital signs: Vital Signs Temperature 36.6 C 09/15/23 21:27 Pulse Rate 109 H 09/15/23 21:27 Respiratory Rate 16 09/15/23 21:27 Blood Pre
--- NOTE | 2023-09-16 02:01 | PM.IMHP ---
H&P: HPI History of Present Illness Date/Time: 09/16/23 02:01 Chief Complaint: visual disturbances Narrative: An 78 yo who had cardiac catheterization yesterday during which four-vessel disease was found and he is being planned for a CABG, who presented emergency department in company of his son for worsening double vision. patient stated symptom was noticed initially after the procedure when he was groggy and did not open his eyes, he went home and slept off and when he woke up, he had obvious double vision which he described as seeing a single object as if they are stacked up on each other and this happens with eye movement especially up and down and less side ways, he does not notice it with one eye closed and could see clearly with each eye but not with both open. he denies any other focal neurological deficit.He has been off his eliquis and he will be restarting it tomorrow. I was consulted to admit this patient for Neurology review. evaluation done in the emergency department showed negative noncontrast CT scan of the head and CT the of the head and neck. Review of Systems Review of Systems: All systems reviewed & are unremarkable except as noted in HPI and below [facility] Past Medical History Medical History Afib Arthritis BMI 39.0-39.9,adult Cataracts, both eyes Cellulitis CPAP (continuous positive airway pressure) dependence Diabetes Elbow fracture, right History of blood transfusion History of cardioversion x3 HTN (hypertension) Hyperlipidemia Kidney stone Peripheral neuropathy Sleep apnea Tremor of both hands Surgical History Surgical History H/O cardiac radiofrequency ablation H/O inguinal hernia repair History of bilateral knee replacement History of right hip replacement Family History Family History Mother Patient's mother is in good health Father Patient's father is in good health Sibling Patient's brother is in good health Social History Social History Smoking status: Never smoker Second hand tobacco smoke exposure: No Alcohol intake: never Substance use: never Substance use type: does not use Lack of Transportation: No Lack of Food: Never True Current Housing: I Have Housing Concerned About Future Housing: No Difficulty Paying Gas/Electric Bills: No Difficulty Paying for Meds: No Currently Unemployed: No Education: High School Diploma/GED Difficulty w/ Childcare or Family Care: No Living arrangements: with family Gender identity (if verbalized by the patient): Male Spiritual care concerns: No Agree to blood products: Yes Meds Home Medications and Allergies Home Medications Medication Instructions Recorded Confirmed Type magnesium 200 mg tablet 400 mg PO DAILY 09/09/19 09/14/23 History metoprolol tartrate 25 mg tablet 25 mg PO BID 09/09/19 09/14/23 History omega 0-lui-mls-fish oil 1,000 mg 1 cap PO DAILY 09/09/19 09/14/23 History (120 mg-180 mg) capsule (Fish Oil) blood sugar diagnostic #360 ea 08/05/22 03/23/23 Rx lancets (OneTouch UltraSoft #300 ea 08/05/22 03/23/23 Rx Lancets) blood sugar diagnostic (Blood #350 ea 08/06/22 03/23/23 Rx Glucose Test strips) pen needle, diabetic 31 gauge x #100 ea 02/02/23 03/23/23 Rx 3/16 (BD Ultra-Fine Mini Pen Needle) glimepiride 4 mg tablet 4 mg PO BID #180 tabs 06/19/23 09/14/23 Rx tizanidine 4 mg tablet 4 mg PO QHS PRN muscle spasticity 06/29/23 09/14/23 Rx #14 tabs apixaban 5 mg tablet (Eliquis) 5 mg PO BID 08/04/23 09/14/23 History furosemide 20 mg tablet 20 mg PO QAM PRN Swelling 08/05/23 09/14/23 History ramipril 10 mg capsule 10 mg PO DAILY #90 caps 08/06/23 09/14/23 Rx insulin glargine U-300 conc 300 26 unit (0.0867 mL) subcut DAILY 08/24/23 1
[2023-09-16 04:18] LABS: Basophils Percent Auto 0.5 % (0.2-1.2); Eosinophils Absolute Auto 0.2 K/mm3 (0-0.3); Hematocrit 44.9 % (42.0-52.0); Hemoglobin 14.4 g/dL (14.0-18.0); Immature Granulocyte Absolute 0.03 K/mm3 (0.00-0.031); Immature Granulocyte Percent A 0.4 % (0-0.5); Lymphocytes Absolute Auto 1.45 K/mm3 (0.9-3.2); Lymphocytes Percent Auto 19.8 % (18.3-44.2); Mean Corpuscular HGB Conc 32.1 g/dl (32-36); Mean Corpuscular Hemoglobin 28.2 pg (26-34); Mean Corpuscular Volume 87.9 fl (80-100); Mean Platelet Volume 10.8 fl (7.4-10.4); Monocytes Absolute Auto 0.7 K/mm3 (0.1-0.6); Monocytes Percent Auto 9.5 % (2.6-8.5); Neutrophils Absolute Auto 4.9 K/mm3 (1.3-6.7); Neutrophils Percent Auto 66.8 % (45.5-73.1); Platelet Count Result 145 k/mm3 (150-375); Red Blood Count 5.11 M/mm3 (4.6-6.20); Red Cell Distribution Width 14.6 % (11.5-14.5); White Blood Count 7.3 K/mm3 (4.5-10.0)
[2023-09-16 04:30] LABS: Anion Gap 9 mmol/L (8-16); Blood Urea Nitrogen 26 mg/dL (9-20); Calcium 8.8 mg/dL (8.4-10.2); Carbon Dioxide 23 mmol/L (22-30); Chloride 101 mmol/L (98-107); Estimated CRCL calculation 92 ml/min; Estimated Glomerular Filt Rate > 60; Glucose 167 mg/dL (65-110); Potassium 3.9 mmol/L (3.4-5.0); Sodium 133 mmol/L (137-145)
--- NOTE | 2023-09-16 05:15 | PC.NURSE ---
When nursing staff was going to get patient up into floor room, patient decided that he wanted to leave AMA. Patient wanted to speak with EDP Dr. Lew. After speaking with EDP Dr. Lew patient still wanted to leave AMA. AMA paperwork filled out, explained, and signed by the EDP, patient, and nursing staff.
== END 2023-09-16 05:37 | disposition left against medical advice (07) ==
LOC: ANHED 09-16 02:28 → ANH2MED 09-16 05:17
PROVIDERS: Student in an Organized Health Care Education/Training Program; Emergency Provider Emergency Medicine; PCP Internal Medicine
DX: H53.2 Diplopia (principal); M19.90 Unspecified osteoarthritis, unspecified site; E11.9 Type 2 diabetes mellitus without complications; I10 Essential (primary) hypertension; Z87.442 Personal history of urinary calculi; Z79.01 Long term (current) use of anticoagulants
CPT/HCPCS: 36415; 70450; 70496; 70498; 80048; 80053; 85025; 85610; 93005; 99284; Q9967

== ENCOUNTER 2023-09-25 08:00 | Outpatient (CLI) | payer MEDICARE, SELFPAY ==
[2023-09-25 08:48] LABS: Cholesterol 199 mg/dL (0-200); HDL Direct 37 mg/dL; Triglycerides 201 mg/dL (<150)
[2023-09-25 08:59] LABS: LDL Cholesterol Direct 126 mg/dL
== END 2023-09-25 08:01 | disposition home or self-care (01) ==
LOC: ANHLAB 08:05
PROVIDERS: PCP Internal Medicine; Visit Provider Internal Medicine Cardiovascular Disease
DX: I25.10 Atherosclerotic heart disease of native coronary artery without angina pectoris (principal)
CPT/HCPCS: 36415; 80061

== ENCOUNTER 2023-10-07 10:36 | Outpatient (CLI) | payer MEDICARE, SELFPAY ==
[2023-10-07 11:04] LABS: Basophils Absolute Auto 0.1 K/mm3 (0.0-0.1); Basophils Percent Auto 0.7 % (0.2-1.2); Eosinophils Absolute Auto 0.2 K/mm3 (0-0.3); Eosinophils Percent Auto 2.2 % (0-4.4); Hemoglobin 15.5 g/dL (14.0-18.0); Immature Granulocyte Absolute 0.04 K/mm3 (0.00-0.031); Immature Granulocyte Percent A 0.5 % (0-0.5); Lymphocytes Absolute Auto 1.36 K/mm3 (0.9-3.2); Lymphocytes Percent Auto 17.8 % (18.3-44.2); Mean Corpuscular HGB Conc 32.3 g/dl (32-36); Mean Corpuscular Hemoglobin 28.3 pg (26-34); Mean Corpuscular Volume 87.6 fl (80-100); Mean Platelet Volume 10.6 fl (7.4-10.4); Monocytes Absolute Auto 0.7 K/mm3 (0.1-0.6); Monocytes Percent Auto 9.2 % (2.6-8.5); Neutrophils Absolute Auto 5.3 K/mm3 (1.3-6.7); Neutrophils Percent Auto 69.6 % (45.5-73.1); Platelet Count Result 167 k/mm3 (150-375); Red Blood Count 5.48 M/mm3 (4.6-6.20); Red Cell Distribution Width 14.7 % (11.5-14.5); White Blood Count 7.6 K/mm3 (4.5-10.0)
[2023-10-07 11:21] LABS: Anion Gap 11 mmol/L (8-16); Blood Urea Nitrogen 26 mg/dL (9-20); Carbon Dioxide 26 mmol/L (22-30); Chloride 99 mmol/L (98-107); Estimated Glomerular Filt Rate 58; Glucose 250 mg/dL (65-110); Potassium 4.1 mmol/L (3.4-5.0); Sodium 136 mmol/L (137-145)
== END 2023-10-07 10:37 | disposition home or self-care (01) ==
LOC: ANHLAB 10:39
PROVIDERS: PCP Internal Medicine; Visit Provider Internal Medicine Interventional Cardiology
DX: I25.10 Atherosclerotic heart disease of native coronary artery without angina pectoris (principal)
CPT/HCPCS: 36415; 80048; 85025

== ENCOUNTER 2023-11-18 08:20 | Outpatient (CLI) | payer MEDICARE, SELFPAY ==
[2023-11-18 09:02] LABS: Anion Gap 10 mmol/L (8-16); Blood Urea Nitrogen 38 mg/dL (9-20); Calcium 8.9 mg/dL (8.4-10.2); Carbon Dioxide 23 mmol/L (22-30); Chloride 101 mmol/L (98-107); Estimated Glomerular Filt Rate > 60; Glucose 243 mg/dL (65-110); Potassium 4.4 mmol/L (3.4-5.0); Sodium 134 mmol/L (137-145)
== END 2023-11-18 08:21 | disposition home or self-care (01) ==
LOC: ANHLAB 08:22
PROVIDERS: PCP Internal Medicine; Visit Provider Internal Medicine Cardiovascular Disease
DX: I25.10 Atherosclerotic heart disease of native coronary artery without angina pectoris (principal); E11.59 Type 2 diabetes mellitus with other circulatory complications; I15.2 Hypertension secondary to endocrine disorders
CPT/HCPCS: 36415; 80048

== ENCOUNTER 2023-11-27 08:27 | Outpatient (CLI) | payer MEDICARE, SELFPAY ==
[2023-11-27 09:42] LABS: Basophils Percent Auto 0.5 % (0.2-1.2); Eosinophils Absolute Auto 0.2 K/mm3 (0-0.3); Eosinophils Percent Auto 2.8 % (0-4.4); Hemoglobin 15.8 g/dL (14.0-18.0); Immature Granulocyte Absolute 0.03 K/mm3 (0.00-0.031); Immature Granulocyte Percent A 0.5 % (0-0.5); Lymphocytes Absolute Auto 1.05 K/mm3 (0.9-3.2); Lymphocytes Percent Auto 18.3 % (18.3-44.2); Mean Corpuscular HGB Conc 32.2 g/dl (32-36); Mean Corpuscular Hemoglobin 28.5 pg (26-34); Mean Corpuscular Volume 88.4 fl (80-100); Mean Platelet Volume 10.8 fl (7.4-10.4); Monocytes Absolute Auto 0.6 K/mm3 (0.1-0.6); Monocytes Percent Auto 10.8 % (2.6-8.5); Neutrophils Absolute Auto 3.9 K/mm3 (1.3-6.7); Neutrophils Percent Auto 67.1 % (45.5-73.1); Platelet Count Result 168 k/mm3 (150-375); Red Blood Count 5.54 M/mm3 (4.6-6.20); Red Cell Distribution Width 14.6 % (11.5-14.5); White Blood Count 5.7 K/mm3 (4.5-10.0)
[2023-11-27 09:57] LABS: Alanine Aminotransferase 17 U/L (6-50); Alkaline Phosphatase 63 U/L (38-126); Anion Gap 9 mmol/L (8-16); Aspartate Amino Transferase 21 U/L (17-59); Bilirubin,Total 0.6 mg/dL (0.2-1.3); Blood Urea Nitrogen 41 mg/dL (9-20); Calcium 9.5 mg/dL (8.4-10.2); Carbon Dioxide 23 mmol/L (22-30); Chloride 103 mmol/L (98-107); Estimated Glomerular Filt Rate > 60; Glucose 249 mg/dL (65-110); Sodium 135 mmol/L (137-145)
[2023-11-27 10:16] LABS: Hemoglobin A1C 9.4 % (<5.7)
[2023-11-27 10:25] LABS: Creatinine Urine 70.5 mg/dL
[2023-11-27 10:26] LABS: Prostate Specific Antigen 0.7 ng/mL (< OR = 4.0)
[2023-11-27 10:29] LABS: MALB Creatinine Ratio 194.6 mg/g (0-30); Microalbumin Urine Random 137.2 mg/L (0-16.7)
== END 2023-11-27 08:28 | disposition home or self-care (01) ==
PROVIDERS: PCP Physician Assistant; Visit Provider Physician Assistant
DX: Z12.5 Encounter for screening for malignant neoplasm of prostate (principal); E78.5 Hyperlipidemia, unspecified; E11.9 Type 2 diabetes mellitus without complications; E53.8 Deficiency of other specified B group vitamins; R53.83 Other fatigue
CPT/HCPCS: 36415; 80053; 82043; 82607; 83036; 84153; 84443; 85025; G0103

== ENCOUNTER 2024-02-11 09:45 | Outpatient (RCR) | payer MEDICARE, SELFPAY | END 2024-02-11 11:01 | disposition home or self-care (01) | LOC: ANHCPREHAB 09:45 | PROVIDERS: PCP Internal Medicine; Visit Provider Internal Medicine Cardiovascular Disease | DX: Z95.5 Presence of coronary angioplasty implant and graft (principal) | CPT/HCPCS: 93798 ==

== ENCOUNTER 2024-02-27 08:50 | Outpatient (CLI) | payer MEDICARE, SELFPAY ==
[2024-02-27 09:41] LABS: Hemoglobin A1C 6.4 % (<5.7)
[2024-02-27 09:51] LABS: Creatinine Urine 105.9 mg/dL
[2024-02-27 10:17] LABS: MALB Creatinine Ratio 197.5 mg/g (0-30); Microalbumin Urine Random 209.1 mg/L (0-16.7)
[2024-02-27 10:30] LABS: Alanine Aminotransferase 20 U/L (6-50); Albumin Level 4.5 g/dL (3.5-5.1); Alkaline Phosphatase 56 U/L (38-126); Anion Gap 10 mmol/L (4-12); Aspartate Amino Transferase 28 U/L (17-59); Bilirubin,Total 0.8 mg/dL (0.2-1.3); Blood Urea Nitrogen 33 mg/dL (9-20); Calcium 9.4 mg/dL (8.4-10.2); Carbon Dioxide 24 mmol/L (22-30); Chloride 103 mmol/L (98-107); Cholesterol 120 mg/dL (0-200); Estimated Glomerular Filt Rate 58; Glucose 120 mg/dL (65-110); HDL Direct 38 mg/dL; Potassium 4.3 mmol/L (3.4-5.0); Sodium 137 mmol/L (137-145); Triglycerides 102 mg/dL (<150)
[2024-02-27 10:40] LABS: LDL Cholesterol Direct 69 mg/dL
== END 2024-02-27 08:51 | disposition home or self-care (01) ==
PROVIDERS: PCP Physician Assistant; Visit Provider Physician Assistant
DX: E11.9 Type 2 diabetes mellitus without complications (principal)
CPT/HCPCS: 36415; 80053; 80061; 82043; 83036

== ENCOUNTER 2024-04-02 09:09 | Emergency (ER) | payer MEDICARE, SELFPAY ==
[2024-04-02 09:15] VITALS: BP 150/108; PULSE 59; RESP 16; TEMP 36.7; O2SAT 98
--- NOTE | 2024-04-02 09:20 | ED.EXTPRO ---
HPI - Extremity Problem General Chief complaint: Extremity Problem,Nontraumatic Stated complaint: infected toe Time Seen by Provider: 04/02/24 09:11 History of Present Illness HPI Narrative: 78-year-old male with diabetes present to the emergency department for evaluation for a wound to his right 2nd toe. Patient states about 5 days ago he was trying to remove a callus from the toe and caused some bleeding. Patient states over the course of the last 5 days he has had some worsening redness of that toe. Patient attempted to get follow-up with primary care physician but was unable to so patient presented emergency department for evaluation. Patient states that the redness is beginning to improve. Patient has redness of the toe but no redness or swelling the foot ankle or lower leg. Related Data Home Medications Medication Instructions Recorded Confirmed magnesium 200 mg tablet 400 mg PO DAILY 09/09/19 03/03/24 omega 6-fny-qru-fish oil 1,000 mg 1 cap PO DAILY 09/09/19 03/03/24 (120 mg-180 mg) capsule (Fish Oil) apixaban 5 mg tablet (Eliquis) 5 mg PO BID 08/04/23 03/03/24 clopidogrel 75 mg tablet 75 mg PO DAILY 11/25/23 03/03/24 evolocumab 140 mg/mL subcutaneous 140 mg subcut ONCE 11/25/23 03/03/24 pen injector (Sonny Katz) metoprolol tartrate 25 mg tablet 50 mg PO BID 11/25/23 03/03/24 sacubitril 49 mg-valsartan 51 mg 1 tablet PO BID 11/25/23 03/03/24 tablet (Entresto) Allergies Allergy/AdvReac Type Severity Reaction Status Date / Time meperidine AdvReac Mild Confusion Verified 04/02/24 09:18 [id number] Reductase AdvReac Mild myalgias Verified 04/02/24 09:18 Inhibitor Review of Systems Review of Systems: All systems reviewed & are unremarkable except as noted in HPI and below [facility] Past Medical History Medical History Afib Arthritis BMI 39.0-39.9,adult Cataracts, both eyes Cellulitis CPAP (continuous positive airway pressure) dependence Diabetes Elbow fracture, right History of blood transfusion History of cardioversion x3 HTN (hypertension) Hyperlipidemia Kidney stone Peripheral neuropathy Sleep apnea Tremor of both hands Surgical History Surgical History H/O cardiac radiofrequency ablation H/O inguinal hernia repair History of bilateral knee replacement History of right hip replacement Family History Family History Mother Diabetes mellitus Congestive heart failure Father Diabetes mellitus Malignant neoplasm of prostate Metastatic cancer to bone CAD (coronary artery disease) Sibling Brain cancer Other Patient's brother is in good health Patient's father is in good health Patient's mother is in good health Social History Social History Smoking status: Never smoker Second hand tobacco smoke exposure: No Alcohol intake: never Substance use: never Substance use type: does not use Lack of Transportation: No Lack of Food: Never True Current Housing: I Have Housing Concerned About Future Housing: No Difficulty Paying Gas/Electric Bills: No Difficulty Paying for Meds: No Currently Unemployed: No Education: High School Diploma/GED Difficulty w/ Childcare or Family Care: No Living arrangements: with family Gender identity (if verbalized by the patient): Male Spiritual care concerns: No Agree to blood products: Yes Exam Narrative: APPEARANCE: Well appearing, no pain, no distress, well-nourished. HEAD: normocephalic, atraumatic. EYES: PERRLA/EOMI, conjunctivae clear. NOSE: Normal no drainage NECK: Supple. No adenopathy, no masses. RESPIRATORY: Airway patent, respirations nonlabored. Clear to auscultation bilaterally, no rales, rhonchi, wheezing. CARDIOVASCULAR: Regular rate and
[2024-04-02] MEDS: CEPHALEXIN 500 MG CAPSULE PO (09:27)
== END 2024-04-02 09:49 | disposition home or self-care (01) ==
LOC: ANHED 09:34
PROVIDERS: Emergency Provider Emergency Medicine; PCP Physician Assistant
DX: L03.031 Cellulitis of right toe (principal); I48.91 Unspecified atrial fibrillation; M19.90 Unspecified osteoarthritis, unspecified site; E11.9 Type 2 diabetes mellitus without complications; I10 Essential (primary) hypertension; E78.5 Hyperlipidemia, unspecified; Z87.442 Personal history of urinary calculi; G47.30 Sleep apnea, unspecified
CPT/HCPCS: 99283; A9270

== ENCOUNTER 2024-05-04 06:49 | Outpatient (CLI) | payer MEDICARE, SELFPAY ==
--- NOTE | ~2024-05-04 | NM_ITS ---
EXAMINATION: NM bone 3 phase DATE: 05/04/2024 12:46 INDICATION: Diabetic foot ulcer involving the right second toe. TECHNIQUE: 23.6 mCi Tc-99m HDP was administered intravenously. Scintigrams of the feet were obtained in angiographic, blood pool, and delayed phases. COMPARISON: Right foot radiographs 04/13/2024 FINDINGS: There is increased activity in right forefoot on the angiographic and immediate static imag es, consistent with cellulitis. There is increased activity in the right midfoot and left midfoot on delayed phase images, consistent with osteoarthritis. IMPRESSION: 1. No evidence of osteomyelitis. Reviewed, dictated and finalized at location A.
== END 2024-05-04 06:50 | disposition home or self-care (01) ==
LOC: ANHIMG 06:51
PROVIDERS: PCP Physician Assistant; Visit Provider Podiatrist Foot & Ankle Surgery
DX: E11.621 Type 2 diabetes mellitus with foot ulcer (principal); L97.512 Non-pressure chronic ulcer of other part of right foot with fat layer exposed
CPT/HCPCS: 78315; A9503

== ENCOUNTER 2024-05-18 09:56 | Outpatient (CLI) | payer MEDICARE, SELFPAY ==
--- NOTE | ~2024-05-18 | CT_ITS ---
EXAMINATION: CT abdomen pelvis wo/w con DATE: 05/18/2024 10:43 INDICATION: Renal cell carcinoma TECHNIQUE: Computed tomography (CT) of the abdomen and pelvis was performed without and with 100 mL O mnipaque-350 intravenous contrast. Automated exposure control and iterative reconstruction technique were employed. The dose-length product was 2735.48 mGy-cm. COMPARISON: 04/22/2023 FINDINGS: Mild atelectasis in bilateral lower lobes. Tiny left pleural effusion. Heart size is normal. Atherosc lerotic coronary artery calcifications and coronary artery stenting. No pericardial effusion. Unchang ed subcentimeter cyst in the caudal right hepatic lobe. Small hepatic calcific lesions consistent wit h old granulomatous disease. There are few calcified and fat attenuation gallstones in the dependent aspect of the normal gallbladder. Spleen and pancreas are normal. Again seen are bilateral low-attenu ation adrenal adenomas the largest on the left measuring 2.3 x 2.2 cm. There are multiple bilateral l ow-attenuation nonenhancing renal parenchymal and parapelvic cysts the largest on the left measuring up to 3.8 cm. Small region of cortical scarring at the left kidney likely sequela prior infection or infarction. Postoperative change of prior partial nephrectomy along the anterior right kidney. No lisa dent enhancing soft tissue density along the nephrectomy bed to suggest locally recurrent disease. Enrrique wels are normal. Bladder is normal. No pathologically enlarged abdominal or pelvic lymphadenopathy. B ilateral total hip arthroplasties. Moderate to severe lumbar and mild to moderate lower thoracic spon dylosis with bridging osteophytes at multiple levels consistent with diffuse idiopathic skeletal hype rostosis (DISH). IMPRESSION: 1. Status post partial right nephrectomy with no evident residual, locally recurrent or metastatic di sease. 2. Cholelithiasis. Reviewed, dictated and finalized at location A. IMPRESSION: 1. Status post partial right nephrectomy with no evident residual, locally recu rrent or metastatic disease. 2. Cholelithiasis.
--- NOTE | ~2024-05-18 | XR_ITS ---
EXAMINATION: XR chest 2V 05/18/2024 10:15 INDICATION: Renal cell carcinoma PROCEDURE: 2 view chest COMPARISON: No prior studies for comparison. FINDINGS: The lungs are clear. The cardiomediastinal silhouette is within normal limits. There are no pleural effusions. There is no pneumothorax suspected. There is coronary atherosclerosis. Modera te lower thoracic spondylosis. IMPRESSION: 1: NO ACUTE CARDIOPULMONARY DISEASE. Reviewed, dictated and finalized at location B.
[2024-05-18 10:35] LABS: Estimated Glomerular Filt Rate 53
== END 2024-05-18 09:57 | disposition home or self-care (01) ==
PROVIDERS: PCP Internal Medicine; Visit Provider Urology
DX: C64.1 Malignant neoplasm of right kidney, except renal pelvis (principal); K80.20 Calculus of gallbladder without cholecystitis without obstruction; Z90.5 Acquired absence of kidney
CPT/HCPCS: 71046; 74178; Q9967

== ENCOUNTER 2024-11-30 08:04 | Outpatient (CLI) | payer MEDICARE, SELFPAY ==
--- OUTSIDE RECORDS SUMMARY | 2024-11-30 08:15 | XMS_ITS | Referral Summary ---
Author Organization [facility] C Address [address] [place] [address] Care Team Providers Care Millwright Apprentice Name Role Phone Vinny Núñez MD Unavailable [phone] MD Unavailable [phone] Scott Grewal DO Primary Care Provider [phone] Encounters Date Type Department Care Team Description 11/23/2024 Results Follow-Up [facility] Medical [facility] Cardiology [address] [facility] [address] [place] [id number] Дмитрий Nguyen MD 11/18/2024 11:15 AM CIGARETTE PACKAGE EXAMINER Ancillary Procedure [facility] Medical [facility] Cardiology at [address] [place] [address] NICM (nonischemic cardiomyopathy) (CMS/HCC) (HCC); Coronary artery disease involving miami coronary artery of miami heart without angina pectoris; Chronic systolic (congestive) heart failure (HCC) 11/08/2024 11:30 AM CIGARETTE PACKAGE EXAMINER Office Visit [facility] Medical [facility] Cardiology at [address] [place] [address] Дмитрий Nguyen MD NICM (nonischemic cardiomyopathy) (CMS/HCC) (HCC) (Primary Dx); Hypertension associated with diabetes (HCC); Hyperlipidemia associated with type 2 diabetes mellitus (HCC); Coronary artery disease involving miami coronary artery of miami heart without angina pectoris; Chronic systolic (congestive) heart failure (HCC); Severe obesity (HCC) 09/08/2024 Telephone [facility] Medical [facility] Cardiology [address] [place] [address] Дмитрий Nguyen MD from Last 3 Months Allergies No known active allergies Medications metFORMIN (GLUCOPHAGE) 1,000 mg tablet Take 1 tablet (1,000 mg total) by mouth 2 (two) times a day with meals Active primidone (MYSOLINE) 50 mg tablet Take 1 tablet (50 mg total) by mouth nightly Active magnesium oxide 400 mg magnesium capsule Take 1 tablet by mouth nightly Active TOUJEO MAX 300 unit/mL (3 mL) pen for injection Inject 26 Units under the skin every morning 04/16/20 23 Active Farxiga 10 mg tablet Take 1 tablet (10 mg total) by mouth daily 90 tablet 3 03/04/20 24 Active cephalexin (KEFLEX) 500 mg capsule Take 1 capsule (500 mg total) by mouth every 6 (six) hours as needed 04/02/20 24 Active hydroCHLOROthiaz raul 12.5 mg tablet Take 1 tablet (12.5 mg total) by mouth daily 90 tablet 3 06/03/20 24 Active Additional Information Patient taking differently: 25 mgoral Daily, Reported on 11/08/2024 apixaban (ELIQUIS) 5 mg tabletIndication s:atrial fibrillation Take 1 tablet (5 mg total) by mouth 2 (two) times a day 180 tablet 3 07/25/20 24 025 Active Repatha SureClick 140 mg/mL pen injector ADMINISTER 1 ML(140 MG) UNDER THE SKIN EVERY 14 DAYS 2 mL 11 09/08/20 24 Active metoprolol tartrate (LOPRESSOR) 50 mg immediate release tabletIndication s:Paroxysmal atrial fibrillation (CMS/HCC) (HCC) TAKE 1 TABLET(50 MG) BY MOUTH TWICE DAILY 180 tablet 3 09/09/20 24 Active Entresto 49-51 mg tabletIndication s:NICM (nonischemic cardiomyopathy) (CMS/HCC) (HCC) TAKE 1 TABLET BY MOUTH TWICE DAILY 180 tablet 3 10/06/19 25 Active aspirin 81 mg enteric coated tabletIndication s:prevention of thrombosis Take 1 tablet (81 mg total) by mouth daily 30 tablet 11 11/08/19 25 026 Active clopidogreL (PLAVIX) 75 mg tablet TAKE 1 TABLET(75 MG) BY MOUTH DAILY 90 tablet 1 09/12/20 24 025 Discontin ued(Dupli disha order) clopidogreL (PLAVIX) 75 mg tablet Take 1 tablet (75 mg total) by mouth daily 90 tablet 1 09/09/20 24 025 Discontin ued(Thera py completed ) Active Problems Problem Noted Date Diagnosed Date Severe obesity 11/08/2024 Chronic systolic (congestive) heart failure 04/2024 Coronary artery disease invo lving miami coronary artery of miami heart without angina pectoris 09/15/2023 Other thrombophilia 07/06/2023 Palpitations 11/14/2020 Right renal mass 10/25/2019 Overview (10/25/2019): Added automatically from request for surgery [id number] NICM (nonischemic cardiomyopathy) ([facility]) 09/04 MARQUIS (obstructive sleep apnea) 09/18/2017 Hyperlipidemia LDL goal <70 09/18/2017 Hyperlipidemia associated with type 2 diabetes m ellitus 09/18/2017 Pulmonary hypertension 09/18/2017 Essential hypertension 09/18/2017 Hypertension associated with diabetes 09/18/2017 S/P ablation of atrial fibrillation 07/24/2016 Overview (01/08/2017): Status post ablation of atrial fibrillation Assessment & Plan (03/13/2018 1:13 PM CDT): The patient is 4 years status post ablation of his persistent atrial fibrillation. He continues to do well without antiarrhythmic drug therapy. We will continue to monitor and follow closely, and manage new / recurrent arrhythmia expectantly. The patient will follow-up with me in 12 months for an office visit and twelve- lead ECG. Obesity with body mass index 30 or greater 07/24 Overview (01/08/2017): Obesity (BMI 35.0-39.9 without comorbidity) Paroxysmal atrial fibrillation (CMS/HCC) 014 Overview (01/08/2017): PAF Immunizations Immunization Administration Dates Next Due Influenza, Quadrivalent, Spl it, Preservative Free, Intramuscular 09/05/2015 Influenza, Trivalent, Adjuva nted, Intramuscular 07/06/2019 Influenza, Trivalent, High D ose, Split, Preservative Free, Intramuscular 07/06/2018,07/05/2018,07/13/2017,07/24 Influenza, Trivalent, IM (MDV) 08/17/2014 Pneumococcal Conjugate PCV 13 07/13/2017 Pneumococcal Polysaccharide PPV23 07/19/2009 Tetanus toxoid, adsorbed 06/21/2014 ZOSTER LIVE 07/06/2018,08/16/2015,08/15/2015 ZOSTER Recombinant 01/19/2019,07/06/2018 Social History Tobacco Use Types Packs/Day Years Used Date Smoking Tobacco: Never Smokeless Tobacco: Never Tobacco Cessation:Counseling Given: Not Answered Alcohol Use Standard Drinks/Week Comments No 0 (1 standard drink = 0.6 oz pur e alcohol) Personal Safety Answer Date Recorded Have you ever been in or are you currently in a harmful physical or emotional relationship or is someone making you feel afraid or unsafe? Denies 10/14/2023 Sex and Gender Information Value Date Recorded Sex Assigned at Not on file Legal Sex Male 1:06 AM CIGARETTE PACKAGE EXAMINER Gender Identity Not on file Sexual Orientation Not on file Last Filed Vital Signs Vital Sign Reading Time Taken Comments Blood Pressure 120/72 11/08/2024 11:22 AM CIGARETTE PACKAGE EXAMINER Pulse 81 11/08/2024 11:22 AM CIGARETTE PACKAGE EXAMINER Temperature 36.7 C (98.1 F) 04/13/2024 2:54 PM CDT Respiratory Rate 20 04/13/2024 2:54 PM CDT Oxygen Saturation 98% 11/08/2024 11:22 AM CIGARETTE PACKAGE EXAMINER Inhaled Oxygen Concentration - - Weight 125.2 kg (276 lb) 11/08/2024 11:22 AM CIGARETTE PACKAGE EXAMINER Height 182.9 cm (6') 11/08/2024 11:22 AM CIGARETTE PACKAGE EXAMINER Body Mass Index 37.43 11/08/2024 11:22 AM CIGARETTE PACKAGE EXAMINER Plan of Treatment Not on file Medical Devices Implanted Type Area Boiler Service Technician Device Identifier Shelf Expiration Date Model / Serial / Lot Scopely Shira Synergy Xd Monorail 3mm 38mm 144cm Delivery System 1 Access Port [id number] - [id number] - [id number] Implanted:Qty: 1 on 10/14/2023 by Julio Cesar Franco MD at [facility] Stent Left: Diagnonal Coronary Artery [employer] Shira 03/18/2025 [id number] 300 / [id number] / [id number] [employer] Shira Stent Drug Eluting S Megatron Us Mr 4.18o60mp [id number] - [id number] - [id number] Implanted:Qty: 1 on 10/14/2023 by Julio Cesar Franco MD at [facility] Stent Left: Anterior Descending Cornary Artery [employer] Shira 04/19/2025 [id number] 400 / [id number] / [id number] [employer] Shira Stent Drug Eluting S Megatron Us Mr 3.40x04qo [id number] - [id number] - [id number] Implanted:Qty: 1 on 10/14/2023 by Julio Cesar Franco MD at [facility] Stent Left: Anterior Descending Cornary Artery [employer] Shira 06/09/2025 [id number] 350 / [id number] / [id number] [employer] [id number] Dynasty 56mm Revision Group F Hip Shell Acetabular Biofoam Latex Free - [id number] Implanted:Qty: 1 on 03/13/[address] MD at [facility] Right: Hip [employer] [id number] 08/23/2027 [id number] / / [id number] [employer] [id number] Profemur Preserve Classic 8d 9 Stem Femoral Varus - [id number] Implanted:Qty: 1 on 03/13/[address] MD at [facility] Right: Hip [employer] [id number] 03/10/2027 [id number] / / [id number] [employer] [id number] Procotyl 40mm 12/14 Medium Head Femoral Biolox Delta Sterile - [id number] Implanted:Qty: 1 on 03/13/[address] MD at [facility] Right: Hip [employer] [id number] 03/15/2027 [id number] / / [id number] [employer] [id number] Dynasty Lineage 6.5mm 45mm Acetabular Screw Bone Biofoam - [id number] Implanted:Qty: 1 on 03/13/[address] MD at [facility] Right: Hip [employer] [id number] 03/31/2024 [id number] / / [id number] [employer] Dlxp-Gf40 Dynasty A-Class 40mm Hip Standard Liner Acetabular Poly Biofoam - [id number] Implanted:Qty: 1 on 03/13/[address] MD at [facility] Right: Hip [employer] [id number] 10/28/2027 [id number]-GF40 / / [id number] [employer] [id number] Dynasty Conserve 42mm 3 Screw Hole Hip Big Head Femoral Ceramic - [id number] Implanted:Qty: 1 on 11/06/[address] MD at [facility] Left: Hip [employer] [id number] 02/28/2027 [id number] / / [id number] [employer] Dlxp-Gg42 Dynasty A-Class 42mm Hip Standard Liner Acetabular Poly Biofoam - [id number] Implanted:Qty: 1 on 11/06/[address] MD at [facility] Left: Hip [employer] [id number] 03/21/2028 [id number] / / [id number] [employer] [id number] Profemur Preserve Classic 8d 9 Stem Femoral Varus - [id number] Implanted:Qty: 1 on 11/06/[address] MD at [facility] Left: Hip [employer] [id number] 04/12/2028 [id number] / / [id number] [employer] [id number] Dynasty Lineage 6.5mm 40mm Acetabular Screw Bone Biofoam - [id number] Implanted:Qty: 1 on 11/06/[address] MD at [facility] Left: Hip [employer] [id number] 03/20/2026 [id number] / / [id number] [employer] [id number] Dynasty 58mm Group G Hip Shell Acetabular Biofoam - [id number] Implanted:Qty: 1 on 11/06/[address] MD at [facility] Left: Hip [employer] [id number] 08/04/2024 [id number] / / [id number] [employer] [id number] Profemur Conserve 38mm Total Neck Head Medium Sleeve Centering - [id number] Implanted:Qty: 1 on 11/06/[address] MD at [facility] Left: Hip [employer] [id number] 07/10/2026 [id number] / / [id number] Explanted Type Area Boiler Service Technician Device Identifier Shelf Expiration Date Model / Serial / Lot [employer] [id number] Schanz 5mm Pin Fixation Sterile - [id number] Implanted:Qty: 1 Explanted:Qty: 1 on 03/13/[address] MD at [facility] Right: Hip [employer] [id number] 12/05/202720061009 / / [id number] [employer] [id number] Schanz 5mm Pin Fixation Sterile - [id number] Explanted:Qty: 1 on 03/13/[address] MD at [facility] Right: Hip [employer] [id number] 12/05/202720061009 / / [id number] Procedures Procedure Name Priority Date/Time Associated Diagnosis Comments TRANSTHORACIC ECHO (TTE) COMPLETE W DOPPLER/CF WO CONTRAST Routine 11/18/2024 12:36 PM CIGARETTE PACKAGE EXAMINER NICM (nonischemic cardiomyopathy) (CMS/HCC) (HCC) Coronary artery disease involving miami coronary artery of miami heart without angina pectoris Chronic systolic (congestive) heart failure (HCC) EGFR Routine 03/24/2024 8:30 AM CDT NICM (nonischemic cardiomyopathy) (CMS/HCC) (HCC) LIPID PANEL Routine 02/27/2024 11:58 AM CDT HEMOGLOBIN A1C Routine 09/20/2020 1:00 PM CIGARETTE PACKAGE EXAMINER Preop testing from Last 3 Months or Most Recently Relevant to Health Maintenance Results * TRANSTHORACIC ECHO (TTE) COMPLETE W DOPPLER/CF WO CONTRAST (11/18/2024 12:36 PM CIGARETTE PACKAGE EXAMINER) LV EF 30 % CONS SCIMAGE Anatomical Region Laterality Modality Ultrasound 11/18/2024 11:1 7 AM CIGARETTE PACKAGE EXAMINER Narrative 11/18/2024 5:10 PM CIGARETTE PACKAGE EXAMINER [facility] Medical Group Cardiology [facility] [address], [address], [place] [address] P:[phone] P:[phone] Echocardiographic Report Patient Name: JURGEN MILLIGAN E : 1945 Study Date: 11/18/2024 11:17:49 AM Gender: M Tech: Location: [facility]W Ref Provider: ДМИТРИЙ NGUYEN Height(Cm): 183 BSA: 2.52 Weight(Kg): 125.2 Heart Rate: 96 BP: 120 / 72 Quality: Adequate Order Provider: ДМИТРИЙ NGUYEN PROCEDURES: Echocardiographic Report: Transthoracic echocardiogram with complete 2D, M-Mode, and color Doppler examination. INDICATIONS: I42.8 Other cardiomyopathies, I25.10 Atherosclerotic heart disease of miami coronary artery without angina pectoris, and I50.22 Chronic systolic (congestive) heart failure. MEASUREMENTS: 2D/MM Value Range Doppler Value Range EF Mod BP 32 % [ 52 - 72 ] AV Mean PG 3 mmHg EF Teich MM 37 % [ 52 - 72 ] AV Peak Blake 1.03 m/s [ 1.00 - 1.70 ] Estimated EF 30 % AV Peak PG 4 mmHg LVIDd 2D 6.44 cm [ 4.20 - 5.80 ] AV VTI 20.15 cm LVIDd MM 7.36 cm [ 4.20 - 5.80 ] LVOT Peak Blake 0.73 m/s [ 0.70 - 1.10 ] LVIDs 2D 5.68 cm [ 2.50 - 4.00 ] LVOT VTI 13.40 cm LVIDs MM 6.03 cm [ 2.50 - 4.00 ] MV E Peak Balke 0.88 m/s [ 0.60 - 1.30 ] LVPWd 2D 0.80 cm [ 0.60 - 1.00 ] MV Decel Time 187 msec [ 104 - 258 ] LVPWd MM 0.79 cm [ 0.60 - 1.00 ] PV Peak Blake 0.76 m/s [ 0.40 - 0.80 ] IVSd 2D 1.20 cm [ 0.60 - 1.00 ] TR Peak Blake 2.36 m/s [ 1.00 - 2.80 ] IVSd MM 0.69 cm [ 0.60 - 1.00 ] TR Peak PG 22 mmHg LA Dimension MM 5.00 cm [ 3.00 - 4.00 ] RVSP 30.00 mmHg [ 10.00 - 36.00 ] AoR Diam MM 3.94 cm [ 3.10 - 3.70 ] Lateral E` 0.06 m/s [ 0.10 - 0.15 ] LA Volume Index 27 cc/m2 [ 16 - 34 ] E/E` 14 ACS MM 2.05 cm [ 1.50 - 2.60 ] 2D/MM Value Range Doppler Value Range - FINDINGS: Interpretation Site: Exam was interpreted at [facility]. Left Ventricle: Severe enlargement of left ventricle cavity. Severe global left ventricular systolic dysfunction. Indeterminate diastolic function. Ejection fraction is measured at 32 %. Ejection Fraction is visually estimated to be 30 %. Right Ventricle: Mild enlargement of right ventricle. Left Atrium: There is moderate enlargement of left atrium. Right Atrium: There is mild enlargement of right atrium. Atrial Septum: Normal atrial septum. Mitral Valve: Normal appearance of the mitral valve. Mild mitral annular calcification. Mild mitral valve regurgitation. Aortic Valve: Normal appearance of the aortic valve. Tricuspid Valve: Normal appearance of the tricuspid valve. Estimated peak RVSP is 30 mmHg. Mild tricuspid regurgitation. Pulmonic Valve: Normal appearance of the pulmonic valve. Pericardium: Normal pericardium with no significant pericardial effusion. Aorta: Normal aortic root. IVC: The IVC is not well visualized. Pulmonary Artery: Normal pulmonary artery size. CONCLUSIONS: Severe enlargement of left ventricle cavity. Severe global left ventricular systolic dysfunction. Indeterminate diastolic function. Ejection fraction is measured at 32 %. Ejection Fraction is visually estimated to be 30 %. Mild enlargement of right ventricle. Moderate biatrial dilation. Small amount of mitral and tricuspid regurgitation. Atrial fibrillation. Compared to echo from July of 2023 AFib replaces sinus rhythm. Electronically Signed By: Byron Navarro MD, [facility] 11/18/2024 5:10:03 PM CIGARETTE PACKAGE EXAMINER Procedure Note Byron Navarro MD - 11/18/2024 [facility] Medical Group Cardiology [address], [address], [place] [address] P:[phone] P:[phone] Echocardiographic Report Patient Name: JURGEN MILLIGAN E : 1945 Study Date: 11/18/2024 11:17:49 AM Gender: M Tech: Location: EDW Ref Provider: ДМИТРИЙ NGUYEN Height(Cm): 183 BSA: 2.52 Weight(Kg): 125.2 Heart Rate: 96 BP: 120 / 72 Quality: Adequate Order Provider: ДМИТРИЙ NGUYEN PROCEDURES: Echocardiographic Report: Transthoracic echocardiogram with complete 2D, M-Mode, and color Dopplerexamination. INDICATIONS: I42.8 Other cardiomyopathies, I25.10 Atherosclerotic heart disease ofnative coronary artery without angina pectoris, and I50.22 Chronic systolic (congestive)heart failure. MEASUREMENTS: 2D/MM Value Range Doppler ValueRange EF Mod BP 32 % [ 52 - 72 ] AV Mean PG 3mmHg EF Teich MM 37 % [ 52 - 72 ] AV Peak Blake 1.03m/s [ 1.00 - 1.70 ] Estimated EF 30 % AV Peak PG 4mmHg LVIDd 2D 6.44 cm [ 4.20 - 5.80 ] AV VTI 20.15cm LVIDd MM 7.36 cm [ 4.20 - 5.80 ] LVOT Peak Blake 0.73m/s [ 0.70 - 1.10 ] LVIDs 2D 5.68 cm [ 2.50 - 4.00 ] LVOT VTI 13.40cm LVIDs MM 6.03 cm [ 2.50 - 4.00 ] MV E Peak Blake 0.88m/s [ 0.60 - 1.30 ] LVPWd 2D 0.80 cm [ 0.60 - 1.00 ] MV Decel Time 187msec [ 104 - 258 ] LVPWd MM 0.79 cm [ 0.60 - 1.00 ] PV Peak Blake 0.76m/s [ 0.40 - 0.80 ] IVSd 2D 1.20 cm [ 0.60 - 1.00 ] TR Peak Blake 2.36m/s [ 1.00 - 2.80 ] IVSd MM 0.69 cm [ 0.60 - 1.00 ] TR Peak PG 22mmHg LA Dimension MM 5.00 cm [ 3.00 - 4.00 ] RVSP 30.00mmHg [ 10.00 - 36.00 ] AoR Diam MM 3.94 cm [ 3.10 - 3.70 ] Lateral E` 0.06m/s [ 0.10 - 0.15 ] LA Volume Index 27 cc/m2 [ 16 - 34 ] E/E` 14 ACS MM 2.05 cm [ 1.50 - 2.60 ] 2D/MM Value Range Doppler ValueRange - FINDINGS: Interpretation Site: Exam was interpreted at [facility]. Left Ventricle: Severe enlargement of left ventricle cavity. Severe global leftventricular systolic dysfunction. Indeterminate diastolic function. Ejection fraction ismeasured at 32 %. Ejection Fraction is visually estimated to be 30 %. Right Ventricle: Mild enlargement of right ventricle. Left Atrium: There is moderate enlargement of left atrium. Right Atrium: There is mild enlargement of right atrium. Atrial Septum: Normal atrial septum. Mitral Valve: Normal appearance of the mitral valve. Mild mitral annular calcification.Mild mitral valve regurgitation. Aortic Valve: Normal appearance of the aortic valve. Tricuspid Valve: Normal appearance of the tricuspid valve. Estimated peak RVSP is 30 mmHg.Mild tricuspid regurgitation. Pulmonic Valve: Normal appearance of the pulmonic valve. Pericardium: Normal pericardium with no significant pericardial effusion. Aorta: Normal aortic root. IVC: The IVC is not well visualized. Pulmonary Artery: Normal pulmonary artery size. CONCLUSIONS: Severe enlargement of left ventricle cavity. Severe global leftventricular systolic dysfunction. Indeterminate diastolic function. Ejection fraction ismeasured at 32 %. Ejection Fraction is visually estimated to be 30 %. Mild enlargement of right ventricle. Moderate biatrial dilation. Small amount of mitral and tricuspid regurgitation. Atrial fibrillation. Compared to echo from July of 2023 AFib replaces sinus rhythm. Electronically Signed By: Byron Navarro MD, [facility] 11/18/2024 5:10:03 PM CIGARETTE PACKAGE EXAMINER us Дмитрий Nguyen MD CV ECHO PROCEDURES Final Result * (ABNORMAL) eGFR (03/24/2024 8:30 AM CDT) eGFR 54(L) >=60 mL/min/1. 73 m2 Comment: Interpretive Data Reference Interval Normal >/= 90 mL/min/1.73m2 Mildly decreased* 60 - 89 mL/min/1.73m2 Mildly to moderately decreased 45 - 59 mL/min/1.73m2 Moderately to severely decreased 30 - 44 mL/min/1.73m2 Severely decreased 15 - 29 mL/min/1.73m2 Kidney Failure < 15 mL/min/1.73m2 *Relative to young adult level Estimated glomerular filtration rate is determined by the 2020 CKD-EPI equation recommended by the National Kidney Foundation (A Unifying Approach to GFR Estimation: Recommendations of the NKF-ASK Task Force on Reassessing the Inclusion of Race in Diagnosing Kidney Disease, JASN 2020). The CKD-EPI equation should not be used for patients with unstable renal function and has not been validated in children and those over 70. Current interpretive data was last reviewed 2021. Blood 03/24/2024 8:30 AM CDT 03/24/2024 2:13 PM CDT Result [facility] Дмитрий Nguyen MD LAB BLOOD ORDERABLES Trisha l Result Performing Organization Address [facility] Co de Phone Number [facility] [address] Department [place] [address] * Lipid panel (02/27/2024 11:58 AM CDT) SCRIBED Cholesterol, Total 120 <200 EXTERNAL LAB SCRIBED HDL 38 >40 EXTERNAL LAB SCRIBED LDL 69 <100 EXTERNAL LAB SCRIBED Triglycerides 102 <150 EXTERNAL LAB Blood Result [facility] John Holley MD LAB BLOOD ORDERABLES Edit ed Result - Final Performing Organization Address [facility] Co de Phone Number EXTERNAL LAB * (ABNORMAL) Hemoglobin A1c (09/20/2020 1:00 PM CIGARETTE PACKAGE EXAMINER) Hgb A1C 7.8(H) 4.0 - 5.6 % [facility] Estimated Average Glucose 177 mg/dL [facility] Comment: The ADA recommends reporting an estimated Average Glucose (eAG) with all Hemoglobin A1c results using the equation derived from a study of 507 normal and diabetic adults. Minority populations were underrepresented and children were not included. (Diabetes Care 31:6582-1706, 2008). The eAG is not equivalent to a fasting glucose. Blood specimen (specimen) 09/20/2020 1:00 PM CIGARETTE PACKAGE EXAMINER 09/20/2020 1:22 PM CIGARETTE PACKAGE EXAMINER Result [facility] Moy Lane MD LAB BLOOD ORDERABLES Final R esult Performing Organization Address [facility] Co de Phone Number [facility] [address] Department [place] [address] from Last 3 Months or Most Recently Relevant to Health Maintenance Insurance [employer] MEDICARE AET MEDICARE Advance Directives For more information, please contact: [phone] * Full Code (Latest Code Status on File) Date Activated Date Inactivated Comments 10/14/2023 5:41 PM 10/15/2023 12:31 PM * Full Code Date Activated Date Inactivated Comments 03/13/2020 7:17 AM 03/14/2020 6:33 PM * Full Code Date Activated Date Inactivated Comments 11/11/2019 3:56 PM 11/13/2019 5:09 PM Care Teams Millwright Apprentice Relationship Specialty Start Date End Date Scott Grewal DO [address] [facility] [address] [place] [address] PCP - General Internal Medicine 06/03/24 Vinny Núñez [place] [address] [place] [id number] Consulting Physician Urology 11/11/[address] [place] [address] [place] [address] Surgeon Orthopedic Surgery 03/14/20
--- OUTSIDE RECORDS SUMMARY | 2024-11-30 08:15 | XMS_ITS | Clinical Summary ---
Author Organization [facility] C Address [address] [place] [address] Care Team Providers Care Valve Inspector Name Role Phone Vinny Núñez MD Unavailable [phone] MD Unavailable [phone] Scott Grewal DO Primary Care Provider [phone] Allergies No known active allergies Medications metFORMIN [...] immediate release tabletIndication s:Paroxysmal atrial fibrillation (CMS/HCC) ([facility]) TAKE 1 TABLET(50 MG) BY MOUTH TWICE DAILY 180 tablet 3 09/09/20 24 Active Entresto 49-51 mg tabletIndication s:NICM (nonischemic cardiomyopathy) (CMS/HCC) ([facility]) TAKE 1 TABLET BY MOUTH TWICE DAILY [...] failure 04/2024 Coronary artery disease invo lving kaguyuk coronary artery of kaguy[place] heart without angina pectoris 09/15/2023 Other thrombophilia 07/06/2023 Palpitations 11/14/2020 Right renal mass 10/25/2019 Overview (10/25/2019): Added automatically from request for surgery [id number] NICM (nonischemic cardiomyopathy) (CMS/HCC) 09/04 MARQUIS (obstructive sleep apnea) 09/18/2017 Hyperlipidemia [...] atrial fibrillation (CMS/HCC) 014 Overview (01/08/2017): PAF Encounters Date Type Department Care Team Description 11/23/2024 Results Follow-Up [facility] Cardiology [address] [facility] [address] [place] [address] Дмитрий Nguyen MD 11/18/2024 11:15 AM BALANCE WHEEL HAND FILER Ancillary Procedure [facility] Cardiology at [address] [place] [address] NICM (nonischemic cardiomyopathy) (CMS/HCC) (HCC); Coronary artery disease involving kaguyuk coronary artery of kaguyuk heart without angina pectoris; Chronic systolic (congestive) heart failure (HCC) 11/08/2024 11:30 AM BALANCE WHEEL HAND FILER Office Visit [facility] Cardiology at [address] [place] [address] Дмитрий Nguyen MD NICM (nonischemic cardiomyopathy) (CMS/HCC) (HCC) (Primary Dx); Hypertension associated with diabetes (HCC); Hyperlipidemia associated with type 2 diabetes mellitus (HCC); Coronary artery disease involving kaguyuk coronary artery of kaguyuk heart without angina pectoris; Chronic systolic (congestive) heart failure (HCC); Severe obesity (HCC) 09/08/2024 Telephone [facility] Cardiology [address] [facility] [address] [place] [address] Дмитрий Nguyen MD from Last 3 Months Immunizations Immunization Administration Dates Next Due Influenza, Quadrivalent, Spl it, Preservative Free, Intramuscular 09/05/2015 Influenza, Trivalent, Adjuva nted, Intramuscular 07/06/2019 Influenza, Trivalent, High D ose, Split, Preservative Free, Intramuscular 07/06/2018,07/05/2018,07/13/2017,07/24 Influenza, Trivalent, IM (MDV) 08/17/2014 Pneumococcal Conjugate PCV 13 07/13/2017 Pneumococcal Polysaccharide PPV23 07/19/2009 Tetanus toxoid, adsorbed 06/21/2014 ZOSTER LIVE 07/06/2018,08/16/2015,08/15/2015 ZOSTER Recombinant 01/19/2019,07/06/2018 Surgical History Surgery Date Site/Laterality Comments KNEE ARTHROPLASTY Bilateral Knee replacement HERNIA REPAIR CARDIAC ELECTROPHYSIOLOGY MA PPING AND ABLATION 01/18/2014 KIDNEY SURGERY 11/11/2019 mass removed JOINT REPLACEMENT Right hip Medical History Medical History Date Comments Hypertension Osteoarthritis Obesity BMI 40 Renal mass Hearing loss Non-ischemic cardiomyopathy ([facility]) ([facility]) followed by Dr Nguyen- rosario e @ [facility] 08/08/2019 Vertigo Sleep apnea uses CPAP-- brin kaia in DOS Atrial fibrillation ([facility]) ([facility]) 2013 had ablation- no problems since -- sees Dr. Nguyen Cancer ([facility]) ([facility]) 11/11/2019 kidney ca ncer--had surgery only Type 2 diabetes mellitus ([facility]) Pulmonary hypertension ([facility]) Hyperlipidemia Chronic kidney disease Kidney stone Family History Medical History Relation Name Comments Coronary artery disease Father Kevin funk Artery Bypass Graft; Diabetes Mother Diabetes mellit us; Heart failure Mother Congestive Hea rt Failure; Cause of : Congestive Heart Failure Diabetes Other Family history of Diabetes mellitus; Relation Name Status Comments Father Alive Mother Other Social History Tobacco Use Types Packs/Day Years [...] on file Legal Sex Male 1:06 AM BALANCE WHEEL HAND FILER Gender Identity Not on file Sexual Orientation Not on file Obstetrics History Last Filed Vital Signs Vital Sign Reading Time Taken Comments Blood Pressure 120/72 11/08/2024 11:22 AM BALANCE WHEEL HAND FILER Pulse 81 11/08/2024 11:22 AM BALANCE WHEEL HAND FILER Temperature 36.7 C (98.1 F) 04/13/2024 2:54 PM CDT Respiratory Rate 20 04/13/2024 2:54 PM CDT Oxygen Saturation 98% 11/08/2024 11:22 AM BALANCE WHEEL HAND FILER Inhaled Oxygen Concentration - - Weight 125.2 kg (276 lb) 11/08/2024 11:22 AM BALANCE WHEEL HAND FILER Height 182.9 cm (6') 11/08/2024 11:22 AM BALANCE WHEEL HAND FILER Body Mass Index 37.43 11/08/2024 11:22 AM BALANCE WHEEL HAND FILER Plan of Treatment Health Maintenance Due Date Last Done Comments Albumin Creatinine Ratio, Urine 1945 Depression Screening 1945 Dilated Eye Exam 1945 Foot Exam 1945 Hepatitis B Screening 1961 Well Visit 65+ 2008 DTaP/Tdap/Td Vaccine (1 - Tdap) 06/22/2014 4 Hemoglobin A1C 03/21/2021 09/20/2020, 10/2019, 10/31/2019 Fall Risk Assessment 11/06/2021 11/06/2020 Influenza Vaccine (#1) 2024 9, 07/06/2018, 07/05/2018, Additional history exists Lipid Panel 02/26/2025 02/27/2024, 09/05, 05/27/2017, Additional history exists eGFR 03/24/2025 03/24/2024, 03/05, 11/18/2023, Additional history exists Pneumococcal vaccine 65+ Completed 07/13/2017, 07/05 Zoster Vaccine Completed 01/19/2019, 11/2017, 07/06/2018, Additional history exists Medical Devices Implanted Type Area Thresher Broomcorn Device Identifier Shelf Expiration Date Model / Serial / Lot [employer] Shira Synergy Xd Monorail 3mm 38mm 144cm Delivery System 1 Access Port [id number] - [id number] - [id number] Implanted:Qty: 1 on 10/14/2023 by Julio Cesar Franco MD at [facility] Left: Diagnonal Coronary Artery [employer] Shira 03/18/2025 [id number] / [id number] / [id number] [employer] Shira Stent Drug Eluting S Megatron Us Mr 4.43b31iq [id number] - [id number] - [id number] Implanted:Qty: 1 on 10/14/2023 by Julio Cesar Franco MD at [facility] Left: Anterior Descending Cornary Artery [employer] Hsira 04/19/2025 [id number] 400 / [id number] / [id number] [employer] Shira Stent Drug Eluting S Megatron Us Mr 3.03h96py [id number] - [id number] - [id number] Implanted:Qty: 1 on 10/14/2023 by Julio Cesar Franco MD at [facility] Left: Anterior Descending Cornary Artery [employer] Shira 06/09/2025 [id number] 350 / [id number] / [id number] [employer] [id number] Dynasty 56mm Revision Group F Hip Shell Acetabular Biofoam Latex Free - [id number] Implanted:Qty: 1 on 03/13/[address] MD at [facility] Right: Hip [employer] [id number] 08/23/2027 [id number] / / [id number] [employer] [id number] Profemur Preserve Classic 8d 9 Stem Femoral Varus - [id number] Implanted:Qty: 1 on 03/13/[address] MD at [facility] Right: Hip [employer] [id number] 03/10/2027 [id number] / / [id number] [employer] [id number] Procotyl 40mm 12/14 Medium Head Femoral Biolox Delta Sterile - [id number] Implanted:Qty: 1 on 03/13/[address] MD at [facility] Right: Hip [employer] [id number] 03/15/2027 [id number] / / [id number] [employer] [id number] Dynasty Lineage 6.5mm 45mm Acetabular Screw Bone Biofoam - [id number] Implanted:Qty: 1 on 03/13/[address] MD at [facility] Right: Hip [employer] [id number] 03/31/2024 [id number] / / [id number] [employer] Dlxp-Gf40 Dynasty A-Class 40mm Hip Standard Liner Acetabular Poly Biofoam - [id number] Implanted:Qty: 1 on 03/13/[address] MD at [facility] Right: Hip [employer] [id number] 10/28/2027 DLXP-GF40 / / [id number] [employer] [id number] Dynasty Conserve 42mm 3 Screw Hole Hip Big Head Femoral Ceramic - [id number] Implanted:Qty: 1 on 11/06/[address] MD at [facility] Left: Hip [employer] [id number] 02/28/2027 [id number] / / [id number] [employer] Dlxp-Gg42 Dynasty A-Class 42mm Hip Standard Liner Acetabular Poly Biofoam - [id number] Implanted:Qty: 1 on 11/06/[address] MD at [facility] Left: Hip [employer] [id number] 03/21/2028 DLXP-GG42 / / [id number] [employer] [id number] Profemur Preserve Classic 8d 9 Stem Femoral Varus - [id number] Implanted:Qty: 1 on 11/06/[address] MD at [facility] Left: Hip [employer] [id number] 04/12/2028 [id number] / / [id number] [employer] [id number] Dynasty Lineage 6.5mm 40mm Acetabular Screw Bone Biofoam - [id number] Implanted:Qty: 1 on 11/06/[address] MD at [facility] Left: Hip [employer] [id number] 03/20/2026 [id number] / / [id number] [employer] [id number] Dynasty 58mm Group G Hip Shell Acetabular Biofoam - [id number] Implanted:Qty: 1 on 11/06/[address] MD at [facility] Left: Hip [employer] [id number] 08/04/2024 [id number] / / [id number] [employer] [id number] Profemur Conserve 38mm Total Neck Head Medium Sleeve Centering - [id number] Implanted:Qty: 1 on 11/06/[address] MD at [facility] Left: Hip [employer] [id number] 07/10/2026 [id number] / / [id number] Explanted Type Area Thresher Broomcorn Device Identifier Shelf Expiration Date Model / Serial / Lot [employer] [id number] Schanz 5mm Pin Fixation Sterile - [id number] Implanted:Qty: 1 Explanted:Qty: 1 on 03/13/[address] MD at [facility] Right: Hip [employer] [id number] 12/05/202720061009 / / [id number] [employer] [id number] Schanz 5mm Pin Fixation Sterile - [id number] Explanted:Qty: 1 on 03/13/[address] MD at [facility] Right: Hip [employer] [id number] 12/05/202720061009 / / [id number] Procedures Procedure Name Priority Date/Time Associated Diagnosis Comments TRANSTHORACIC ECHO (TTE) COMPLETE W DOPPLER/CF WO CONTRAST Routine 11/18/2024 12:36 PM BALANCE WHEEL HAND FILER NICM (nonischemic cardiomyopathy) (CMS/HCC) (HCC) Coronary artery disease involving kaguyuk coronary artery of kaguyuk heart without angina pectoris Chronic systolic (congestive) heart failure (HCC) EGFR Routine 03/24/2024 8:30 AM CDT NICM (nonischemic cardiomyopathy) (CMS/HCC) (HCC) LIPID PANEL Routine 02/27/2024 11:58 AM CDT HEMOGLOBIN A1C Routine 09/20/2020 1:00 PM BALANCE WHEEL HAND FILER Preop testing from Last 3 Months or Most Recently Relevant to Health Maintenance Results * TRANSTHORACIC ECHO (TTE) COMPLETE W DOPPLER/CF WO CONTRAST (11/18/2024 12:36 PM BALANCE WHEEL HAND FILER) LV EF 30 % CONS SCIMAGE Anatomical Region Laterality Modality Ultrasound 11/18/2024 11:1 7 AM BALANCE WHEEL HAND FILER Narrative 11/18/2024 5:10 PM BALANCE WHEEL HAND FILER [facility] Cardiology [address], [place] [address] P:[phone] P:[phone] Echocardiographic Report Patient Name: JURGEN MILLIGAN E [...] Other cardiomyopathies, I25.10 Atherosclerotic heart disease of kaguyuk coronary artery without angina pectoris, and I50.22 [...] - 4.00 ] MV E Peak Blake 0.88 m/s [ 0.60 - 1.30 ] [...] FINDINGS: Interpretation Site: Exam was interpreted at [facility]. Left Ventricle: Severe enlargement of left ventricle [...] rhythm. Electronically Signed By: Byron Navarro MD, [facility] 11/18/2024 5:10:03 PM BALANCE WHEEL HAND FILER Procedure Note Byron Navarro MD - 11/18/2024 [facility] Cardiology [address], [address], [place] [address] P:[phone] P:[phone] Echocardiographic Report Patient Name: JURGEN MILLIGAN E : 1945 Study Date: 11/18/2024 11:17:49 AM Gender: M Tech: Location: [facility] Ref Provider: ДМИТРИЙ NGUYEN Height(Cm): 183 BSA: [...] FINDINGS: Interpretation Site: Exam was interpreted at [facility]. Left Ventricle: Severe enlargement of left ventricle [...] rhythm. Electronically Signed By: Byron Navarro MD, [facility] 11/18/2024 5:10:03 PM BALANCE WHEEL HAND FILER Дмитрий Nguyen MD CV ECHO PROCEDURES Final [...] 8:30 AM CDT 03/24/2024 2:13 PM CDT Дмитрий Nguyen MD LAB BLOOD ORDERABLES Trisha l Result Performing Organization Address [facility] Co de Phone Number [facility] [address] Department [place] [address] * Lipid panel (02/27/2024 11:58 AM CDT) SCRIBED Cholesterol, Total 120 <200 EXTERNAL LAB SCRIBED HDL 38 >40 EXTERNAL LAB SCRIBED LDL 69 <100 EXTERNAL LAB SCRIBED Triglycerides 102 <150 EXTERNAL LAB Blood John Holley MD LAB BLOOD ORDERABLES Edit ed Result - Final Performing Organization Address [facility] Co de Phone Number EXTERNAL LAB * (ABNORMAL) Hemoglobin A1c (09/20/2020 1:00 PM BALANCE WHEEL HAND FILER) Hgb A1C 7.8(H) 4.0 - 5.6 % [facility] Estimated Average Glucose 177 mg/dL [facility] Comment: The ADA recommends reporting an estimated Average Glucose (eAG) with all Hemoglobin A1c results using the equation derived from a study of 507 normal and diabetic adults. Minority populations were underrepresented and children were not included. (Diabetes Care 31:1496-4882, 2008). The eAG is not equivalent to a fasting glucose. Blood specimen (specimen) 09/20/2020 1:00 PM BALANCE WHEEL HAND FILER 09/20/2020 1:22 PM BALANCE WHEEL HAND FILER Moy Lane MD LAB BLOOD ORDERABLES Final R esult Performing Organization Address [facility] Co de Phone Number [facility] [address] Department [place] [address] from Last 3 Months or Most Recently Relevant to Health Maintenance Insurance AETNA MEDICARE AETNA MEDICARE Advance Directives For more information, please contact: [phone] * Full Code (Latest Code Status on File) Date Activated Date Inactivated Comments 10/14/2023 5:41 PM 10/15/2023 12:31 PM * Full Code Date Activated Date Inactivated Comments 03/13/2020 7:17 AM 03/14/2020 6:33 PM * Full Code Date Activated Date Inactivated Comments 11/11/2019 3:56 PM 11/13/2019 5:09 PM Care Teams Valve Inspector Relationship Specialty Start Date End Date Scott Grewal DO [address] [place] [id number] PCP - General Internal Medicine 06/03/24 Vinny Núñez [place] [address] [place] [address] Consulting Physician Urology 11/11/[address] [place] [address] [place] [address] Surgeon Orthopedic Surgery 03/14/20
--- OUTSIDE RECORDS SUMMARY | 2024-11-30 08:16 | XMS_ITS | Encounter Summary ---
Author Organization [facility] Healthcare Address [address] [place] [address] Care Team Providers Care Ship Joiner Name Role Phone Vinny Núñez MD Unavailable [phone] MD Unavailable [phone] Scott Grewal DO Primary Care Provider [phone] Encounter Details Date Type Department Care Team (Late st Contact Info) Description 11/23/2024 Results Follow-Up [facility] Medical Group Cardiology [address] [address] [address] [place] [address] Efren Bradshaw MD [address] [id number] Social History Tobacco Use Types Packs/Day Years Used Date Smoking Tobacco: Never Smokeless Tobacco: Never Alcohol Use Standard Drinks/Week Comments No 0 [...] on file Legal Sex Male 1:06 AM DEMO EVENT SPECIALIST Gender Identity Not on file Sexual Orientation Not on file documented as of this encounter Plan of Treatment Not on file documented as of this encounter Visit Diagnoses Not on filedocumented in this encounter Care Teams Ship Joiner Relationship Specialty Start Date End Date Scott Grewal DO [address] [place] [address] PCP - General Internal Medicine 06/03/24 Vinny Núñez [place] [address] [place] [address] Consulting Physician Urology 11/11/[address] [place] [address] [place] [address] Surgeon Orthopedic Surgery 03/14/20 documented as of this encounter
--- OUTSIDE RECORDS SUMMARY | 2024-11-30 08:16 | XMS_ITS | Encounter Summary ---
Author Organization [facility] Group Address [address] [facility] [address] [place] [address] Care Team Providers Care Merchandising Representative Name Role Phone Lucho Kirkpatrick MD Primary Care Provider [phone] Vinny Núñez MD Unavailable [phone] MD Unavailable [phone] Scott Grewal DO Primary Care Provider [phone] Encounter Details Date Type Department Care Team (Late st Contact Info) Description 03/05/2017 Orders Only [facility] Provider, MD John [address] [place] [address] Social History Tobacco Use Types Packs/Day Years Used Date Smoking Tobacco: Never Alcohol Use Standard Drinks/Week Comments No 0 (1 standard drink = 0.6 oz pur e alcohol) Sex and Gender Information Value Date Recorded Sex Assigned at Not on file Legal Sex Male 1:06 AM PRE CERTIFICATION SPECIALIST Gender Identity Not on file Sexual Orientation Not on file documented as of this encounter Plan of Treatment Not on file documented as of this encounter Procedures Procedure Name Priority Date/Time Associated Diagnosis Comments CARDIOLOGY REPORT 03/05/2017 documented in this encounter Results * CARDIOLOGY REPORT (03/05/2017) Anatomical Region Laterality Modality Other Narrative 03/05/2017 Ordered by an unspecified provider. Historical Provider [facility] FREDY SANCHEZ Final Result documented in this encounter Visit Diagnoses Not on filedocumented in this encounter Care Teams Merchandising Representative Relationship Specialty Start Date End Date Lucho Kirkpatrick MD [address] [place] [address] PCP - General 02/21/16 06/02/24 Scott Grewal DO [address] [place] [address] PCP - General Internal Medicine 06/03/24 Vinny Núñez [place] [address] [place] [address] Consulting Physician Urology 11/11/[address] [place] [address] [place] [address] Surgeon Orthopedic Surgery 03/14/20 documented as of this encounter
--- OUTSIDE RECORDS SUMMARY | 2024-11-30 08:16 | XMS_ITS | Continuity of Care Document ---
Author Organization [facility] Address [address] [place] [address] Phone Care Team Providers Care Camera Person Name Role Phone Moy Lane MD Unavailable [...] Providers Copied on Encounter [facility], [address] [facility], [place], [address], [place] tel:[phone] [facility] O Nela Pain in left hipPresence of left artificial hip joint Jan- 1 Domingo Winter. [address] [place], [place], [address] . tel:[phone] [facility], [address], [place], [address], [place] tel:[phone] [facility] [place] Presence of left artificial hip jointLow back pain 1 Domingo Winter. [address], [place], [address] . tel:[phone] [facility], [address], [place], [address], [place] tel:[phone] [facility] [place] Pain in left hipPresence of left artificial hip jointBody mass index [BMI] 39.0-39.9, adult Fe- 1 Domingo Winter. [address], [place], [address] . tel: [phone] [facility], [address] [facility], [place], [address], [place] tel:[phone] [facility] O Nela Low back painPain in left hipPain in right hipPrimary osteoarthritis of lumbar spine 0 Domingo Winter. [address] [place], [place], [address] . tel: [phone] [facility], [address] [address], [place], [address], [place] tel:[phone] [facility] [place] Pain in right hip 0 Domingo Winter. [address], [place], [address] . tel: [phone] [facility], [address] [address], [place], [address], [place] tel:[phone] [facility] [place] Pain in right hipPresence of right artificial hip jointUnilateral primary osteoarthritis, left hip 0 Domingo Winter. [address], [place], [address] . tel: [phone] [facility], [address] [facility] [facility], [place], [address], [place] tel:[phone] [facility] O Nela Presence of right artificial hip jointUnilateral primary osteoarthritis, left hip 0 Domingo Winter. [address], [place], [address] . tel: [phone] [facility], [address] [address], [place], [address], [place] tel:[phone] [facility] [place] Pain in right hipPresence of right artificial hip joint 0 Domingo Winter. [address], [place], [address] . tel:[phone] [facility], [address] [facility] [address], [place], [address], [place] tel:[phone] [facility] [place] Pain in right hipPain in left hipPrimary osteoarthritis of right hipBMI 38.0-38.9,adultP rimary osteoarthritis of hips, bilateral 0 Domingo Winter. [address], [place], [address] . tel:[phone] Family History Family Member Type Diagnosis Age At Onset Problem (finding) Family history of Diabe ewa mellitus Problem (finding) Family history of Cance r, unknown Problem (finding) Family history of Cardi ovascular disease Payers Payer name Insurance type Covered constitution party ID Authoriza tion(s) No Information Social History [...]
--- OUTSIDE RECORDS SUMMARY | 2024-11-30 08:16 | XMS_ITS | Continuity of Care Document ---
Author Organization [facility] Address [address] [place] [address] Phone Care Team Providers Care Clay Washer Name Role Phone Thaddeus Medel Unavailable Unavailable Advance Directives Directive Yes / No Effective Date File Name No Information Encounters Encounter Description Practice Location Reason(s) For Visit Diagnoses Date Provider Providers Copied on Encounter [facility], [address], [place], [place], [address], [place] tel:[phone] [facility] No Information 3-200 2 Doisy Edward. [address] , [address], [place], [address], [place]. tel:[phone] Family History Family Member Type Diagnosis Age [...]
[2024-11-30 08:37] LABS: Hemoglobin A1C 8.7 % (<5.7)
[2024-11-30 08:51] LABS: Alanine Aminotransferase 18 U/L (6-50); Albumin Level 3.8 g/dL (3.5-5.1); Alkaline Phosphatase 58 U/L (38-126); Anion Gap 11 mmol/L (4-12); Aspartate Amino Transferase 22 U/L (17-59); Blood Urea Nitrogen 31 mg/dL (9-20); Calcium 8.8 mg/dL (8.4-10.2); Carbon Dioxide 24 mmol/L (22-30); Chloride 102 mmol/L (98-107); Cholesterol 115 mg/dL (0-200); Estimated Glomerular Filt Rate > 60; Glucose 166 mg/dL (65-110); HDL Direct 40 mg/dL; Sodium 137 mmol/L (137-145); Triglycerides 176 mg/dL (<150)
[2024-11-30 09:02] LABS: LDL Cholesterol Direct 48 mg/dL
== END 2024-11-30 08:05 | disposition home or self-care (01) ==
LOC: ANHLAB 08:07
PROVIDERS: PCP Internal Medicine; Visit Provider Internal Medicine
DX: E78.5 Hyperlipidemia, unspecified (principal); E11.65 Type 2 diabetes mellitus with hyperglycemia; Z79.4 Long term (current) use of insulin; E53.8 Deficiency of other specified B group vitamins
CPT/HCPCS: 36415; 80053; 80061; 82607; 83036

== ENCOUNTER 2025-05-31 11:51 | Emergency (ER) | payer MEDICARE, SELFPAY ==
--- NOTE | 2025-05-31 12:00 | ED.WOUNDLAC ---
HPI - Wound/Laceration General Chief Complaint: Wound/Laceration Stated Complaint: LAC Time Seen by Provider: 05/31/25 11:55 History of Present Illness HPI narrative: This is an 79-year-old male with history of AFib, diabetes, CHF who presents to the ED for bleeding patient states he had a small scab to left ankle that he picked off this morning. It began bleeding and he was on subsequently. They were able to stop the bleeding but when he took off the dressing a few hours later, began to bleed again prompting him to call EMS again and to come to the ED. denies lightheadedness, dizziness, known trauma. He is on Eliquis and Plavix for AFib. Related Data Home Medications ?Medication ?Instructions ?Recorded ?Confirmed ?Last Taken ?Type magnesium 200 mg tablet 400 mg PO DAILY 09/09/19 03/03/24 09/14/23 History omega 8-gev-tqf-fish oil 1,000 mg 1 cap PO DAILY 09/09/19 03/03/24 09/14/23 History (120 mg-180 mg) capsule (Fish Oil) apixaban 5 mg tablet (Eliquis) 5 mg PO BID 08/04/23 03/03/24 09/12/23 History clopidogrel 75 mg tablet 75 mg PO DAILY 11/25/23 03/03/24 Unknown History evolocumab 140 mg/mL subcutaneous 140 mg subcut ONCE 11/25/23 03/03/24 Unknown History pen injector (Sonny Katz) metoprolol tartrate 25 mg tablet 50 mg PO BID 11/25/23 03/03/24 Unknown History sacubitril 49 mg-valsartan 51 mg 1 tablet PO BID 11/25/23 03/03/24 Unknown History tablet (Entresto) dapagliflozin propanediol 10 mg 10 mg PO DAILY 12/05/24 Unknown History tablet (Farxiga) Allergies Allergy/AdvReac Type Severity Reaction Status Date / Time meperidine AdvReac Mild Confusion Verified 05/31/25 12:05 Mowranq-EYH-TkG Reductase AdvReac Mild myalgias Verified 05/31/25 12:05 Inhibitor Review of Systems Review of Systems: Gen.: Denies fevers or chills Eyes: Denies eye pain or visual change ENT: Denies congestion Respiratory: Denies shortness of breath or cough CV: Denies chest pain or palpitations GI: Denies abdominal pain nausea, emesis or diarrhea denies burning, urgency, frequency or hematuria Musculoskeletal: Denies back pain or muscle pain Neuro: Denies numbness, tingling, weakness or focal weakness Skin: Denies rash Except as documented, all other systems reviewed and negative [facility] Past Medical History Medical History BMI 39.0-39.9,adult Cellulitis History of blood transfusion Diabetes Elbow fracture, right Arthritis Kidney stone CPAP (continuous positive airway pressure) dependence Sleep apnea HTN (hypertension) Afib Hyperlipidemia History of cardioversion x3 Peripheral neuropathy Tremor of both hands Cataracts, both eyes Surgical History Surgical History History of right hip replacement History of bilateral knee replacement H/O inguinal hernia repair H/O cardiac radiofrequency ablation Family History Family History Mother Diabetes mellitus Congestive heart failure Father Diabetes mellitus Malignant neoplasm of prostate Metastatic cancer to bone CAD (coronary artery disease) Sibling Brain cancer Other Patient's brother is in good health Patient's father is in good health Patient's mother is in good health Social History Social History Smoking status: Never smoker Second hand tobacco smoke exposure: No Alcohol intake: never Substance use: never Substance use type: does not use Lack of Transportation: No Lack of Food: Never True Current Housing: I Have Housing Concerned About Future Housing: No Difficulty Paying Gas/Electric Bills: No Difficulty Paying for Meds: No Currently Unemployed: No Education: High School Diploma/GED Difficulty w/ Childcare or Family Care: No Living arrangements: with family Gender identity (if verbalized by the patient): Male Spiritual care concerns: No Agree to blood products: Yes Exam Narrative: APPEARANCE: No acute distress, nontoxic, resting in bed HEENT: Normocephalic, atraumatic, OMM RESPIRATORY: No respiratory distress CARDIOVASCULAR: Appears well perfused ABDOMINAL: Nondistended MUSCULOSKELETAl: Moves all extremities. No obvious deformities NEURO: Awake and alert. SKIN:: Pinpoint area of oozing blood to the left lateral ankle PSYCHIATRIC: Normal affect/mood, Course Vital Signs Vital signs: Vital Signs Temperature 97.4 F L 05/31/25 12:05 Pulse Rate 77 05/31/25 12:05 Respiratory Rate 20 05/31/25 12:05 Blood Pressure 144/80 H 05/31/25 12:05 Pulse Oximetry 98 05/31/25 12:05 Oxygen Delivery Room Air 05/31/25 12:05 Temperature 97.4 F L 05/31/25 12:05 Pulse Rate 77 05/31/25 12:05 Respiratory Rate 20 05/31/25 12:05 Blood Pressure 144/80 H 05/31/25 12:05 Pulse Oximetry 98 05/31/25 12:05 Oxygen Delivery Room Air 05/31/25 12:05 MDM - Wound/Laceration MDM Narrative Medical decision making narrative: 79-year-old male who presented to the ED for bleeding from his his ankle. He did not recall any specific trauma. Initial vital signs stable. This did not appear to be related to a varicose vein. Pressure dressing was applied with a nonadherent bandage. Patient was educated to leave this on for 24 hours given that he had this has been addressed several times now. He was educated on adequate pressure. He is advised to continue taking his Eliquis and Plavix. Discussed following up with his PCP next week for re-evaluation. Patient was agreeable to this plan. Given strict return precautions. Differential Diagnosis Differential diagnosis: Likely laceration, abrasion, avulsion of skin and other (bleeding) Medical Records Attestation: I reviewed the patient's medical records. Discharge Plan Discharge Clinical Impression: Bleeding A-fib Qualifiers: Atrial fibrillation type: unspecified Qualified Code(s): I48.91 - Unspecified atrial fibrillation Patient Disposition: Home Condition: Stable Instructions: Antibiotic Form, Abrasion (ED) Additional Instructions: Keep pressure dressing on for the next 24 hours. Carefully removed. Apply pressure for at least 30 minutes if it begins to bleed again. Follow-up with your PCP in the next week for re-evaluation. Return to the ED for any new or worsening symptoms. Patient Language: Upper Sorbian Prescriptions: No Action Entresto 49-51 mg tablet 1 tablet PO BID clopidogrel 75 mg tablet 75 mg PO DAILY Repatha SureClick 140 mg/mL pen injector 140 mg subcut ONCE Rx Instructions: injection once every two weeks dapagliflozin propanediol [Farxiga] 10 mg tablet 10 mg PO DAILY magnesium 200 mg Tablet 400 mg PO DAILY omega 6-cqp-wqp-fish oil [Fish Oil] 1,000 mg (120 mg-180 mg) Capsule 1 cap PO DAILY Rx Instructions: 1200mg metoprolol tartrate 25 mg tablet 50 mg PO BID Eliquis 5 mg tablet 5 mg PO BID (DME) blood sugar diagnostic Strip See Rx Instructions .ROUTE .MEDSUPPLY Qty: 360 3RF Rx Instructions: As directed--- test 4 times per day (DME) Blood Glucose Test Strip See Rx Instructions .ROUTE .MEDSUPPLY Qty: 350 2RF Rx Instructions: As directed - test 4 times a day (DME) lancets Misc See Rx Instructions .ROUTE .MEDSUPPLY Qty: 300 1RF Rx Instructions: As directed-- test QID (DME) OneTouch Ultra Test Strip See Rx Instructions .Route Qty: 100 3RF Rx Instructions: check blood sugar 3 times daily hydrochlorothiazide 25 mg tablet See Rx Instructions .ROUTE .COMPLEX Qty: 90 3RF Dose Instruction: TAKE 1 TABLET BY MOUTH DAILY Rx Instructions: TAKE 1 TABLET BY MOUTH DAILY metformin 1,000 mg tablet See Rx Instructions .ROUTE .COMPLEX Qty: 180 3RF Dose Instruction: TAKE 1 TABLET BY MOUTH TWICE DAILY Rx Instructions: TAKE 1 TABLET BY MOUTH TWICE DAILY primidone 50 mg tablet 50 mg PO HS Qty: 90 2RF insulin glargine U-300 conc [Toujeo Max U-300 SoloStar] 300 unit/mL (3 mL) insulin pen 26 unit subcut DAILY Qty: 9 3RF (DME) pen needle, diabetic 31 gauge x 3/16 needle See Rx Instructions .ROUTE .COMPLEX Qty: 100 0RF Dose Instruction: USE TO INJECT DIRECTED Rx Instructions: USE TO INJECT DIRECTED Follow-up/Referrals: Scott Grewal, [Primary Care Provider, Internal Medicine]
[2025-05-31 12:05] VITALS: BP 144/80; PULSE 77; RESP 20; TEMP 36.3; O2SAT 98
--- OUTSIDE RECORDS SUMMARY | 2025-05-31 12:26 | XMS_ITS | Encounter Summary ---
Author Organization [facility] Address [address] [facility] [address] [place] [address] Care Team Providers Care Shuffle Board Operator Name Role Phone Lucho Kirkpatrick MD Primary Care Provider [phone] Vinny Núñez MD Unavailable [phone] MD Unavailable [phone] Scott Grewal DO Primary Care Provider [phone] Encounter Details Date Type Department Care Team (Late st Contact Info) Description 03/05/2017 Orders Only Arrhythmia Center Provider, MD John [address] [place] [address] Social History Tobacco Use Types Packs/Day Years Used Date Smoking Tobacco: Never Alcohol Use Standard Drinks/Week Comments No 0 (1 standard drink = 0.6 oz pur e alcohol) Sex and Gender Information Value Date Recorded Sex Assigned at Not on file 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
--- OUTSIDE RECORDS SUMMARY | 2025-05-31 12:26 | XMS_ITS | Clinical Summary ---
Author Organization [facility] Address [address] [place] [address] Care Team Providers Care Synchronizer Name Role Phone Vinny Núñez MD Unavailable [phone] MD Unavailable [phone] Scott Grewal DO Primary Care Provider [phone] Allergies No known active allergies Medications metFORMIN [...] 26 Units under the skin every morning 3 Active cephalexin (KEFLEX) 500 mg capsule Take 1 capsule (500 mg total) by mouth every 6 (six) hours as needed 4 Active apixaban (ELIQUIS) 5 mg tabletIndications :atrial fibrillation Take 1 tablet (5 mg total) by mouth 2 (two) times a day 180 tablet 3 4 07/25/20 25 Active metoprolol tartrate (LOPRESSOR) 50 mg immediate release tabletIndications :Paroxysmal atrial fibrillation (HCC) TAKE 1 TABLET(50 MG) BY MOUTH TWICE DAILY 180 tablet 3 4 Active Entresto 49-51 mg tabletIndications :NICM (nonischemic cardiomyopathy) (HCC) TAKE 1 TABLET BY MOUTH TWICE DAILY 180 tablet 3 5 Active aspirin 81 mg enteric coated tabletIndications :prevention of thrombosis Take 1 tablet (81 mg total) by mouth daily 30 tablet 11 5 11/08/19 26 Active Farxiga 10 mg tablet TAKE 1 TABLET DAILY 90 tablet 1 5 Active evolocumab (Repatha SureClick) 140 mg/mL pen injector Inject 1 mL (140 mg total) under the skin every 14 (fourteen) days 6 mL 5 Active hydroCHLOROthiazi de 12.5 mg tablet TAKE 1 TABLET(12.5 MG) BY MOUTH DAILY 90 tablet 3 5 Active Active Problems Problem Noted Date Diagnosed Date Severe obesity 11/08/2024 Chronic systolic (congestive) heart failure 04/2024 Coronary artery disease invo lving [place] coronary artery of [place] heart without angina pectoris 09/15/2023 Other thrombophilia 07/06/2023 Palpitations 11/14/2020 Right renal mass 10/25/2019 Overview (10/25/2019): Added automatically from request for surgery [id number] NICM (nonischemic cardiomyopathy) 09/18/2017 MARQUIS (obstructive sleep apnea) 09/18/2017 Hyperlipidemia LDL [...] (BMI 35.0-39.9 without comorbidity) Paroxysmal atrial fibrillation 05/24/2014 Overview (01/08/2017): PAF Encounters Date Type Department Care Team Description 05/16/2025 11:45 AM CDT Office Visit [facility] Cardiology at [address] [place] [id number] Efren Bradshaw MD Coronary artery disease involving [place] coronary artery of [place] heart without angina pectoris (Primary Dx); Chronic systolic (congestive) heart failure; Hyperlipidemia associated with type 2 diabetes mellitus (HCC); Hypertension associated with diabetes (HCC); NICM (nonischemic cardiomyopathy) (HCC); Paroxysmal atrial fibrillation (HCC) 03/10/2025 Telephone [facility] Cardiology [address] [place] [address] Efren Bradshaw MD from Last 3 Months Immunizations Immunization [...] 40 Renal mass Hearing loss Non-ischemic cardiomyopathy (HCC) followed by Dr Bradshaw- herbert @ [facility] 08/08/2019 Vertigo Sleep apnea uses CPAP-- cjin g in DOS Atrial fibrillation (HCC) 2013 had ab lation-no problems since-- sees Dr. 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 Gender Identity Not on file Sexual Orientation Not on file Obstetrics History Last Filed Vital Signs Vital Sign Reading Time Taken Comments Blood Pressure 110/74 05/16/2025 11:55 AM CDT Pulse 92 05/16/2025 11:55 AM CDT Temperature 36.7 C (98.1 F) 04/13/2024 2:54 PM CDT Respiratory Rate 20 04/13/2024 2:54 PM CDT Oxygen Saturation 96% 05/16/2025 11:55 AM CDT Inhaled Oxygen Concentration - - Weight 129.3 kg (285 lb) 05/16/2025 11:55 AM CDT Height 182.9 cm (6') 05/16/2025 11:55 AM CDT Body Mass Index 38.65 05/16/2025 11:55 AM CDT Plan of Treatment Health Maintenance Due Date Last Done Comments Albumin Creatinine Ratio, Urine 1943 Depression Screening 1945 Dilated Eye Exam 1943 Foot Exam 1943 Hepatitis B Screening 1961 Well Visit 65+ 2008 DTaP/Tdap/Td Vaccine (1 - Tdap) 06/22/2014 4 Hemoglobin A1C 03/21/2021 09/20/2020, 06/0 10/2019, 10/31/2019 Fall Risk Assessment 11/06/2021 11/06/2020 Lipid Panel 02/26/2025 02/27/2024, 12/11/2022, 05/27/2017, Additional history exists eGFR 03/24/2025 03/24/2024, 03/05, 11/18/2023, Additional history exists Influenza Vaccine (#1) 2025 9, 07/06/2018, 07/05/2018, Additional history exists Pneumococcal vaccine 65+ Completed 07/13/2017, 07/05 Zoster Vaccine Completed 01/19/2019, 11/2017, 07/06/2018, Additional history exists Medical Devices Implanted Type Area Hypercil Core Transformer Assembler Device Identifier Shelf Expiration Date Model / Serial / Lot [employer] Shira Synergy Xd Monorail 3mm 38mm 144cm Delivery System 1 Access Port [id number] - [id number] - [id number] Implanted:Qty: 1 on 10/14/2023 by Julio Cesar Franco MD at [facility] Stent Left: Diagnonal Coronary Artery [employer] Shira 03/18/2025 [id number] 300 / [id number] / [id number] [employer]ira Stent Drug Eluting S Megatron Mr 4.71n54ey [id number] - [id number] - [id number] Implanted:Qty: 1 on 10/14/2023 by Julio Cesar Franco MD at [facility] Stent Left: Anterior Descending Cornary Artery [employer] Shira 04/19/2025 [id number] 400 / [id number] / [id number] [employer] Shira Stent Drug Eluting S Megatron Mr 3.47w14zi [id number] - [id number] - [id number] Implanted:Qty: 1 on 10/14/2023 by Julio Cesar Franco MD at [facility] Stent Left: Anterior Descending Cornary Artery [employer] Shira 06/09/2025 [id number] 350 / [id number] / [id number] [employer] [id number] Dynasty 56mm Revision Group F Hip Shell Acetabular Biofoam Latex Free - [id number] Implanted:Qty: 1 on 03/13/[address] MD at [facility] Right: Hip [employer] [id number] 08/23/2027 [id number] / / [id number] [employer] [id number] Profemur Preserve Classic 8d 9 Stem Femoral Varus - [id number] Implanted:Qty: 1 on 03/13/[address] MD at [facility] Right: Hip [employer] [id number] 03/10/2027 [id number] / / [id number] [employer] [id number] Procotyl 40mm 12/14 Medium Head Femoral Biolox Delta Sterile - [id number] Implanted:Qty: 1 on 03/13/[address] MD at [facility] Right: Hip [employer] [id number] 03/15/2027 [id number] / / [id number] [employer] [id number] Dynasty Lineage 6.5mm 45mm Acetabular Screw Bone Biofoam - [id number] Implanted:Qty: 1 on 03/13/[address] MD at [facility] Right: Hip [employer] [id number] 03/31/2024 [id number] / / [id number] [employer] Dlxp-Gf40 Dynasty A-Class 40mm Hip Standard Liner Acetabular Poly Biofoam - [id number] Implanted:Qty: 1 on 03/13/[address] MD at [facility] Right: Hip [employer] [id number] 10/28/2027 [id number]-GF40 / / [id number] [employer] [id number] Dynasty Conserve 42mm 3 Screw Hole Hip Big Head Femoral Ceramic - [id number] Implanted:Qty: 1 on 11/06/[address] MD at [facility] Left: Hip [employer] [id number] 02/28/2027 [id number] / / [id number] [employer] Dlxp-Gg42 Dynasty A-Class 42mm Hip Standard Liner Acetabular Poly Biofoam - [id number] Implanted:Qty: 1 on 11/06/[address] MD at [facility] Left: Hip [employer] [id number] 03/21/2028 [id number]-[id number] / / [id number] [employer] [id number] Profemur Preserve Classic 8d 9 Stem Femoral Varus - [id number] Implanted:Qty: 1 on 11/06/[address] MD at [facility] Left: Hip [employer] [id number] 04/12/2028 [id number] / / [id number] [employer] [id number] Dynasty Lineage 6.5mm 40mm Acetabular Screw Bone Biofoam - [id number] Implanted:Qty: 1 on 11/06/[address] MD at [facility] Left: Hip [employer] [id number] 03/20/2026 [id number] / / [id number] [employer] [id number] Dynasty 58mm Group G Hip Shell Acetabular Biofoam - [id number] Implanted:Qty: 1 on 11/06/[address] MD at [facility] Left: Hip [employer] [id number] 08/04/2024 [id number] / / [id number] [employer] [id number] Profemur Conserve 38mm Total Neck Head Medium Sleeve Centering - [id number] Implanted:Qty: 1 on 11/06/[address] MD at [facility] Left: Hip [employer] [id number] 07/10/2026 [id number] / / [id number] Explanted Type Area Hypercil Core Transformer Assembler Device Identifier Shelf Expiration Date Model / Serial / Lot [employer] [id number] Schanz 5mm Pin Fixation Sterile - [id number] Implanted:Qty: 1 Explanted:Qty: 1 on 03/13/[address] MD at [facility] Right: Hip [employer] [id number] 12/05/202720061009 / / [id number] [employer] 20061009 Schanz 5mm Pin Fixation Sterile - [id number] Explanted:Qty: 1 on 03/13/[address] MD at [facility] Right: Hip [employer] [id number] 12/05/202720061009 / / [id number] Procedures Procedure Name Priority Date/Time Associated Diagnosis Comments EGFR Routine 03/24/2024 8:30 AM CDT NICM (nonischemic cardiomyopathy) (HCC) LIPID PANEL Routine 02/27/2024 11:58 AM CDT HEMOGLOBIN A1C Routine 09/20/2020 1:00 PM FEDERAL JUDICIAL LAW CLERK Preop testing from Last 3 Months or Most Recently Relevant to Health Maintenance Results * (ABNORMAL) eGFR (03/24/2024 8:30 AM CDT) [...] 8:30 AM CDT 03/24/2024 2:13 PM CDT us Efren Bradshaw MD LAB BLOOD ORDERABLES Trisha sorenson Result YULI [id number] [facility] Department [place] [address] * Lipid panel (02/27/2024 11:58 AM CDT) SCRIBED Cholesterol, Total 120 <200 EXTERNAL LAB SCRIBED HDL 38 >40 EXTERNAL LAB SCRIBED LDL 69 <100 EXTERNAL LAB SCRIBED Triglycerides 102 <150 EXTERNAL LAB Blood Historical Provider LAB BLOOD ORDERABLES Edit ed Result - Final EXTERNAL LAB * (ABNORMAL) Hemoglobin A1c (09/20/2020 1:00 PM FEDERAL JUDICIAL LAW CLERK) Hgb A1C 7.8(H) 4.0 - 5.6 % [facility] Estimated Average Glucose 177 mg/dL [facility] Comment: The ADA recommends reporting an estimated Average Glucose (eAG) with all Hemoglobin A1c results using the equation derived from a study of 507 normal and diabetic adults. Minority populations were underrepresented and children were not included. (Diabetes Care 31:7959-3168, 2008). The eAG is not equivalent to a fasting glucose. Blood specimen (specimen) 09/20/2020 1:00 PM FEDERAL JUDICIAL LAW CLERK 09/20/2020 1:22 PM FEDERAL JUDICIAL LAW CLERK Moy Lane MD LAB BLOOD ORDERABLES Final R esult [facility] [address] [facility] Department [place] [address] from Last 3 Months or Most Recently Relevant to Health Maintenance Insurance [employer] MEDICARE [facility] MEDICARE Advance Directives For more information, please contact: [phone] * Full Code (Latest Code Status on File) Date Activated Date Inactivated Comments 10/14/2023 5:41 PM 10/15/2023 12:31 PM * Full Code Date Activated Date Inactivated Comments 03/13/2020 7:17 AM 03/14/2020 6:33 PM * Full Code Date Activated Date Inactivated Comments 11/11/2019 3:56 PM 11/13/2019 5:09 PM Care Teams Synchronizer Relationship Specialty Start Date End Date Scott Grewal DO [address] [facility] [address] [place] [address] PCP - General Internal Medicine 06/03/24 Vinny Núñez [place] [address] [place] [address] Consulting Physician Urology 11/11/[address] [place] [address] [place] [address] Surgeon Orthopedic Surgery 03/14/20
--- OUTSIDE RECORDS SUMMARY | 2025-05-31 12:26 | XMS_ITS | Patient Health Record ---
Author Organization [facility] Address [address] [address] Care Team Providers Care Truck Crane Operator Name Role Phone SHITAL SORTO Unavailable [phone] Reason For Referral No Information Plan Of Treatment No Information Insurance Providers Payer Name Payer Address Payer Phone Subscriber Number Group Number Insured Name Patient Relationship to Insured Coverage Start Date Coverage End Date [employer] [facility] [address] [place] [address] [id number] Jurgen Davison Self - patient is the insured 4
== END 2025-05-31 12:31 | disposition home or self-care (01) ==
LOC: ANHED 12:24
PROVIDERS: Emergency Provider Student in an Organized Health Care Education/Training Program; PCP Internal Medicine
DX: S90.912A Unspecified superficial injury of left ankle, initial encounter (principal); I48.91 Unspecified atrial fibrillation; Z79.01 Long term (current) use of anticoagulants; E11.9 Type 2 diabetes mellitus without complications; M19.90 Unspecified osteoarthritis, unspecified site; Z87.442 Personal history of urinary calculi; G47.30 Sleep apnea, unspecified; I10 Essential (primary) hypertension; E78.5 Hyperlipidemia, unspecified; X58.XXXA Exposure to other specified factors, initial encounter
CPT/HCPCS: 99282

== ENCOUNTER 2025-06-15 08:20 | Outpatient (CLI) | payer MEDICARE, SELFPAY ==
--- OUTSIDE RECORDS SUMMARY | 2001-10-27 10:30 | XMS_ITS | Continuity of Care Document ---
Author Organization [facility] Address [address] [place] [address] Phone Care Team Providers Care Vascular Physician Name Role Phone Thaddeus Medel Unavailable Unavailable Advance Directives Directive Yes / No Effective Date File Name No Information Encounters Encounter Description Practice Location Reason(s) For Visit Diagnoses Date Provider Providers Copied on Encounter [facility], [address], [place], [place], [id number], [place] tel:[phone] [facility] No Information [address] Edward. [address] , [address], [place], [address], [place]. tel:[phone] Family History Family Member Type Diagnosis Age At Onset No Information Payers Payer name Insurance type Covered democrat ID Authoriza tion(s) No Information Social History Type Description Quantity Date Captured Comments Sex Male Smoking Status No Information Chief Complaint And Reason For Visit No Information Reason For Referral Reason For Referral No Information History Of Present Illness Encounter Date Complaint History Of Prese nt Illness No Information Functional Status Date Functional Assessmen t No Information Instructions Date Instruction Additional Infor mation No Information Assessments Type Assessment Date No Information Patient Care Teams Name Effective Dates (start - stop) Status Members No Information
--- OUTSIDE RECORDS SUMMARY | 2021-01-31 06:20 | XMS_ITS | Continuity of Care Document ---
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 Name Role Phone Moy Lane MD Unavailable Unavailable Allergies, Adverse Reactions, Alerts Substance Reaction Status Criticality No Known Allergies Active No Inform ation Medications Medication Instructions Dosage Effective Dates (start - stop) Status Comments oxycodone 5 mg tablet take 1 tablet by o ral route every 4 - 6 hours as needed 5 MG - Active Zanaflex 4 mg capsule take 1 capsule by oral route 3 times every day 4 MG - Active Advance Directives Directive Yes / No Effective Date File Name No Information Encounters Encounter Description Practice Location Reason(s) For Visit Diagnoses Date Provider Providers Copied on Encounter [facility], [address] [facility] [place], [address], [place] tel:[phone] [facility] [place] Pain in left hipPresence of left artificial hip joint Jan- 1 Domingo Winter. [address] [place], [place], [id number] . tel:[phone] [facility], [address], [place], [address], [place] tel:[phone] [facility] [place] Presence of left artificial hip jointLow back pain 1 Domingo Winter. [address], [place], [id number] . tel:[phone] [facility], [address], [place], [address], [place] tel:[phone] [facility] [place] Pain in left hipPresence of left artificial hip jointBody mass index [BMI] 39.0-39.9, adult Fe- 1 Domingo Winter. [address] [place], [place], [id number] . tel: [phone] [facility], [address] [facility] [facility], [place], [address], [place] tel:[phone] [facility] [place] Low back painPain in left hipPain in right hipPrimary osteoarthritis of lumbar spine 0 Domingo Winter. [address], [place], [id number] . tel: [phone] [facility], [address] [address], [place], [address], [place] tel:[phone] [facility] [place] Pain in right hip 0 Domingo Winter. [address] [place], [place], [id number] . tel: [phone] [facility], [address] [address], [place], [address], [place] tel:[phone] [facility] [place] Pain in right hipPresence of right artificial hip jointUnilateral primary osteoarthritis, left hip 0 Domingo Winter. [address], [place], [id number] . tel: [phone] [facility], [address] [facility], [place], [address], [place] tel:[phone] [facility] [place] Presence of right artificial hip jointUnilateral primary osteoarthritis, left hip 0 Domingo Winter. [address], [place], [id number] . tel: [phone] [facility], [address] [address], [place], [address], [place] tel:[phone] [facility] [place] Pain in right hipPresence of right artificial hip joint 0 Domingo Winter. [address], [place], [address] . tel:[phone] [facility], [address] [facility] [address], [place], [address], [place] tel:[phone] [facility] [place] Pain in right hipPain in left hipPrimary osteoarthritis of right hipBMI 38.0-38.9,adultP rimary osteoarthritis of hips, bilateral 0 Domingo Winter. [address], [place], [address] . tel:[phone] Family History Family Member Type Diagnosis Age At Onset Problem (finding) Family history of Diabe ewa mellitus Problem (finding) Family history of Cance r, unknown Problem (finding) Family history of Cardi ovascular disease Payers Payer name Insurance type Covered libertarian ID Authoriza tion(s) No Information Social History [...]
--- OUTSIDE RECORDS SUMMARY | 2025-06-15 08:44 | XMS_ITS | Encounter Summary ---
Author Organization [facility] Address [address] [facility] [address] [place] [address] Care Team Providers Care Pinking Machine Operator Name Role Phone Lucho Kirkpatrick MD Primary Care Provider [phone] Vinny Núñez MD Unavailable [phone] MD Unavailable [phone] Scott Grewal DO Primary Care Provider [phone] Encounter Details Date Type Department Care Team (Late st Contact Info) Description 03/05/2017 Orders Only Arrhythmia Center Provider, MD John [address] [place] [address] Social History Tobacco Use Types Packs/Day Years Used Date Smoking Tobacco: Never Alcohol Use Standard Drinks/Week Comments No 0 (1 standard drink = 0.6 oz pur e alcohol) Sex and Gender Information Value Date Recorded Sex Assigned at Not on file 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
--- OUTSIDE RECORDS SUMMARY | 2025-06-15 08:44 | XMS_ITS | Clinical Summary ---
Author Organization [facility] C Address [address] [place] [address] Care Team Providers Care Regulatory Affairs Assistant Name Role Phone Vinny Núñez MD Unavailable [phone] MD Unavailable [phone] Scott Grewal DO Primary Care Provider [phone] Allergies No known active allergies Medications metFORMIN [...] the skin every morning 04/16/20 23 Active cephalexin (KEFLEX) 500 mg capsule Take 1 capsule (500 mg total) by mouth every 6 (six) hours as needed 04/02/20 24 Active apixaban (ELIQUIS) 5 mg tabletIndication s:atrial fibrillation Take 1 tablet (5 mg total) by mouth 2 (two) times a day 180 tablet 3 07/25/20 24 025 Active metoprolol tartrate (LOPRESSOR) 50 mg immediate release tabletIndication s:Paroxysmal atrial fibrillation (HCC) TAKE 1 TABLET(50 MG) BY MOUTH TWICE DAILY 180 tablet 3 09/09/20 24 Active Entresto 49-51 mg tabletIndication s:NICM (nonischemic cardiomyopathy) (HCC) TAKE 1 TABLET BY MOUTH TWICE DAILY 180 tablet 3 10/06/19 25 Active aspirin 81 mg enteric coated tabletIndication s:prevention of thrombosis Take 1 tablet (81 mg total) by mouth daily 30 tablet 11 11/08/19 25 026 Active Farxiga 10 mg tablet TAKE 1 TABLET DAILY 90 tablet 1 02/15/20 25 Active hydroCHLOROthiaz raul 12.5 mg tablet TAKE 1 TABLET(12.5 MG) BY MOUTH DAILY 90 tablet 3 03/15/20 25 Active Repatha SureClick 140 mg/mL pen injector ADMINISTER 1 ML(140 MG) UNDER THE SKIN EVERY 14 DAYS 6 mL 06/02/20 25 Active evolocumab (Repatha SureClick) 140 mg/mL pen injector Inject 1 mL (140 mg total) under the skin every 14 (fourteen) days 6 mL 03/10/20 25 025 Discontinued Active Problems Problem Noted Date Diagnosed Date Severe obesity 11/08/2024 Chronic systolic (congestive) heart failure 04/2024 Coronary artery disease invo lving [place] coronary artery of [place] heart without angina pectoris 09/15/2023 Other thrombophilia 07/06/2023 Palpitations 11/14/2020 Right renal mass 10/25/2019 Overview (10/25/2019): Added automatically from request for surgery [id number] NICM (nonischemic cardiomyopathy) 09/18/2017 MARQUIS (obstructive sleep [...] Description 05/16/2025 11:45 AM CDT Office Visit [facility] at [address] [address] Efren Bradshaw MD Coronary artery disease involving [place] coronary artery of [place] heart without angina pectoris (Primary Dx); Chronic systolic (congestive) heart failure; Hyperlipidemia associated with type 2 diabetes mellitus (HCC); Hypertension associated with diabetes (HCC); NICM (nonischemic cardiomyopathy) (HCC); Paroxysmal atrial fibrillation (HCC) from Last 3 Months Immunizations Immunization Administration [...] (HCC) followed by Dr Bradshaw- herbert @ [facility] 08/08/2019 Vertigo Sleep apnea uses CPAP-- altagracia marti in DOS Atrial fibrillation (HCC) 2013 had ab lation-no problems since-- sees Dr. Bradshaw Cancer ([facility]) 11/11/2019 kidney cancer--h ad surgery only Type [...] on file Legal Sex Male 1:06 AM [employer] Gender Identity Not on file Sexual Orientation [...] history exists Medical Devices Implanted Type Area Pool Nurse Device Identifier Shelf Expiration Date Model / Serial / Lot [employer] Shira Synergy Xd Monorail 3mm 38mm 144cm Delivery System 1 Access Port [id number] - [id number] - [id number] Implanted:Qty: 1 on 10/14/2023 by Julio Cesar Franco MD at [facility] Stent Left: Diagnonal Coronary Artery [employer] Shiar 03/18/2025 [id number] 300 / [id number] / [id number] [employer] Shira Stent Drug Eluting S Megatron Mr 4.01u81yo [id number] - [id number] - [id number] Implanted:Qty: 1 on 10/14/2023 by Julio Cesar Franco MD at [facility] Stent Left: Anterior Descending Cornary Artery [employer] Shira 04/19/2025 [id number] 400 / [id number] / [id number] [employer] Sh[employer] Stent Drug Eluting S Megatron Mr 3.23x53fu [id number] - [id number] - [id number] Implanted:Qty: 1 on 10/14/2023 by Julio Cesar Franco MD at [facility] Stent Left: Anterior Descending Cornary Artery [employer] Shira 06/09/2025 [id number] 350 / [id number] / [id number] [employer] [id number] Dynasty 56mm Revision Group F Hip Shell Acetabular Biofoam Latex Free - [id number] Implanted:Qty: 1 on 03/13/[address] MD at [facility] Right: Hip [employer] [id number] 08/23/2027 [id number] / / [id number] [employer] [id number] Profemur Preserve Classic 8d 9 Stem Femoral Varus - [id number] Implanted:Qty: 1 on 03/13/[address] MD at [facility] Right: Hip [employer] [id number] 03/10/2027 [id number] / / [id number] [employer] [id number] Procotyl 40mm 12/14 Medium Head Femoral Biolox Delta Sterile - [id number] Implanted:Qty: 1 on 03/13/[address] MD at [facility] Right: Hip [employer] [id number] 03/15/2027 [id number] / / [id number] [employer] [id number] Dynasty Lineage 6.5mm 45mm Acetabular Screw Bone Biofoam - [id number] Implanted:Qty: 1 on 03/13/[address] MD at [facility] Right: Hip [employer] [id number] 03/31/2024 [id number] / / [id number] [employer] [id number] Dynasty A-Class 40mm Hip Standard Liner Acetabular Poly Biofoam - [id number] Implanted:Qty: 1 on 03/13/[address] MD at [facility] Right: Hip [employer] [id number] 10/28/2027 [id number] / / [id number] [employer] [id number] Dynasty Conserve 42mm 3 Screw Hole Hip Big Head Femoral Ceramic - [id number] Implanted:Qty: 1 on 11/06/[address] MD at [facility] Left: Hip [employer] [id number] 02/28/2027 [id number] / / [id number] [employer] Dlxp-Gg42 Dynasty A-Class 42mm Hip Standard Liner Acetabular Poly Biofoam - [id number] Implanted:Qty: 1 on 11/06/[address] MD at [facility] Left: Hip [employer] [id number] 03/21/2028 [id number] / / [id number] [employer] [id number] Profemur Preserve Classic 8d 9 Stem Femoral Varus - [id number] Implanted:Qty: 1 on 11/06/[address] MD at [facility] Left: Hip [employer] [id number] 04/12/2028 [id number] / / [id number] [employer] [id number] Dynasty Lineage 6.5mm 40mm Acetabular Screw Bone Biofoam - [id number] Implanted:Qty: 1 on 11/06/[address] MD at [facility] Left: Hip [employer] [id number] 03/20/2026 [id number] / / [id number] [employer] [id number] Dynasty 58mm Group G Hip Shell Acetabular Biofoam - [id number] Implanted:Qty: 1 on 11/06/[address] MD at [facility] Left: Hip [employer] [id number] 08/04/2024 [id number] / / [id number] [employer] [id number] Profemur Conserve 38mm Total Neck Head Medium Sleeve Centering - [id number] Implanted:Qty: 1 on 11/06/[address] MD at [facility] Left: Hip [employer] [id number] 07/10/2026 [id number] / / [id number] Explanted Type Area Pool Nurse Device Identifier Shelf Expiration Date Model / Serial / Lot [employer] [id number] Schanz 5mm Pin Fixation Sterile - [id number] Implanted:Qty: 1 Explanted:Qty: 1 on 03/13/[address] MD at [facility] Right: Hip [employer] [id number] 12/05/202720061009 / / [id number] [employer] [id number] Schanz 5mm Pin Fixation Sterile - [id number] Explanted:Qty: 1 on 03/13/[address] MD at [facility] Right: Hip [employer] [id number] 12/05/202720061009 / / [id number] Procedures Procedure Name Priority Date/Time Associated Diagnosis Comments EGFR Routine 03/24/2024 8:30 AM CDT NICM (nonischemic cardiomyopathy) (HCC) LIPID PANEL Routine 02/27/2024 11:58 AM CDT HEMOGLOBIN A1C Routine 09/20/2020 1:00 PM [employer] Preop testing from Last 3 Months or [...] LAB BLOOD ORDERABLES Trisha sorenson Result YULI [id number] [facility] Department [place] [address] * Lipid panel (02/27/2024 11:58 AM CDT) SCRIBED Cholesterol, Total 120 <200 EXTERNAL LAB SCRIBED HDL 38 >40 EXTERNAL LAB SCRIBED LDL 69 <100 EXTERNAL LAB SCRIBED Triglycerides 102 <150 EXTERNAL LAB Blood Historical Provider LAB BLOOD ORDERABLES Edit ed Result - Final EXTERNAL LAB * (ABNORMAL) Hemoglobin A1c (09/20/2020 1:00 PM [employer]ER) Hgb A1C 7.8(H) 4.0 - 5.6 % [facility] Estimated Average Glucose 177 mg/dL [facility] Comment: The ADA recommends reporting an estimated Average Glucose (eAG) with all Hemoglobin A1c results using the equation derived from a study of 507 normal and diabetic adults. Minority populations were underrepresented and children were not included. (Diabetes Care 31:4653-1382, 2008). The eAG is not equivalent to a fasting glucose. Blood specimen (specimen) 09/20/2020 1:00 PM [employer] W[employer] 09/20/2020 1:22 PM [employer] WIRE WEAVER Moy [address] MD LAB BLOOD ORDERABLES Final R esult [facility] [address] Department [place] [address] from Last 3 Months or Most Recently Relevant to Health Maintenance Insurance AETNA MEDICARE [facility] MEDICARE Advance Directives For more information, please contact: [phone] * Full Code (Latest Code Status on File) Date Activated Date Inactivated Comments 10/14/2023 5:41 PM 10/15/2023 12:31 PM * Full Code Date Activated Date Inactivated Comments 03/13/2020 7:17 AM 03/14/2020 6:33 PM * Full Code Date Activated Date Inactivated Comments 11/11/2019 3:56 PM 11/13/2019 5:09 PM Care Teams Regulatory Affairs Assistant Relationship Specialty [place] [address] [place] [address] PCP - General Internal Medicine 06/03/24 Vinny Núñez [place] [address] [place] [address] Consulting Physician Urology 11/11/[address] [place] [address] [place] [address] Surgeon Orthopedic Surgery 03/14/20
--- OUTSIDE RECORDS SUMMARY | 2025-06-15 08:44 | XMS_ITS | Patient Health Record ---
Author Organization [facility] Address [address] [place] [address] Care Team Providers Care Quill Winder Name Role Phone SHITAL SORTO Unavailable [phone] Reason For Referral No Information Plan Of Treatment No Information Insurance Providers Payer Name Payer Address Payer Phone Subscriber Number Group Number Insured Name Patient Relationship to Insured Coverage Start Date Coverage End Date MILLY AWAN [facility] [address] [place] [address] [id number] Jurgen Davison Self - patient is the insured 4
[2025-06-15 09:08] LABS: Hematocrit 52.4 % (42.0-52.0); Hemoglobin 16.8 g/dL (14.0-18.0); Immature Granulocyte Percent A 0.3 % (0-0.5); Lymphocytes Absolute Auto 1.29 K/mm3 (0.9-3.2); Mean Corpuscular HGB Conc 32.1 g/dl (32-36); Mean Corpuscular Hemoglobin 29.3 pg (26-34); Mean Corpuscular Volume 91.4 fl (80-100); Nucleated Red Blood Cells Absolute Auto 0.000 K/mm3 (0.0-0.012); Nucleated Red Blood Cells Perc 0.0 % (0.0-0.2); Platelet Count Result 156 k/mm3 (150-375); Red Blood Count 5.73 M/mm3 (4.6-6.20); White Blood Count 5.8 K/mm3 (4.5-10.0)
[2025-06-15 09:18] LABS: Hemoglobin A1C 7.1 % (<5.7)
[2025-06-15 09:31] LABS: Alanine Aminotransferase 21 U/L (6-50); Albumin Level 4.2 g/dL (3.5-5.1); Alkaline Phosphatase 55 U/L (38-126); Anion Gap 9 mmol/L (4-12); Aspartate Amino Transferase 30 U/L (17-59); Bilirubin,Total 0.9 mg/dL (0.2-1.3); Blood Urea Nitrogen 27 mg/dL (9-20); Calcium 9.0 mg/dL (8.4-10.2); Carbon Dioxide 25 mmol/L (22-30); Chloride 102 mmol/L (98-107); Cholesterol 156 mg/dL (0-200); Estimated Glomerular Filt Rate 57; Glucose 106 mg/dL (65-110); HDL Direct 37 mg/dL; Potassium 4.1 mmol/L (3.4-5.0); Sodium 136 mmol/L (137-145); Total Protein 7.1 g/dL (6.3-8.2); Triglycerides 141 mg/dL (<150)
[2025-06-15 09:34] LABS: MALB Creatinine Ratio 198.1 mg/g (0-30)
[2025-06-15 10:06] LABS: Prostate Specific Antigen 0.7 ng/mL (< OR = 4.0)
[2025-06-15 10:24] LABS: Vitamin B12 248.0 pg/mL (239-931)
== END 2025-06-15 08:21 | disposition home or self-care (01) ==
PROVIDERS: PCP Internal Medicine; Visit Provider Internal Medicine
DX: Z12.5 Encounter for screening for malignant neoplasm of prostate (principal); E78.5 Hyperlipidemia, unspecified; I10 Essential (primary) hypertension; E11.65 Type 2 diabetes mellitus with hyperglycemia; E53.8 Deficiency of other specified B group vitamins; Z79.4 Long term (current) use of insulin
CPT/HCPCS: 36415; 80053; 80061; 82043; 82607; 83036; 84153; 85025; G0103

== ENCOUNTER 2025-09-20 20:45 | Emergency (ER) | payer MEDICARE, SELFPAY ==
--- NOTE | ~2025-09-20 | CT_ITS ---
CT brain wo con HISTORY:vertigo COMPARISON: None. TECHNIQUE: Axial images were obtained of the head without intravenous contrast. FINDINGS: No acute intracranial hemorrhage, mass effect or midline shift. No extra-axial fluid collections. There is generalized atrophy. The calvarium is intact. Visualized paranasal sinuses and mastoid air cells are clear. IMPRESSION: No acute intracranial hemorrhage or extra axial fluid collections. All CT scans at this facility are performed using low dose modulation techniques as appropriate to perform exam including the following: automated exposure control; use of iterative reconstruction technique; adjustment of the mA and/or kV according to patient size (this includes techniques or standardized protocols for targeted exams where dose is matched to indication/reason for exam). Reviewed, dictated and finalized at location S. ING HAND IMPRESSION: No acute intracranial hemorrhage or extra axial fluid collections. All CT scans at this facility are performed using low dose modulation techniqu es as appropriate to perform exam including the following: automated exposure c ontrol; use of iterative reconstruction technique; adjustment of the mA and/or kV according to patient size (this includes techniques or standardized protocol s for targeted exams where dose is matched to indication/reason for exam).
[2025-09-20 20:48] VITALS: BP 133/89; PULSE 96; RESP 20; TEMP 36.7; O2SAT 95
--- NOTE | 2025-09-20 20:50 | ECG_ITS ---
Test Date: 2025-09-20 21:14:18 Measurements Intervals [place] Rate: 90 P: 0 TX: 0 QRS: -52 QRSD: 165 T: -12 QT: 419 QTc: 513 Interpretive Statements ATRIAL FIBRILLATION WITH ABERRANT CONDUCTION OR VENTRICULAR PREMATURE COMPLEXES RIGHT BUNDLE BRANCH BLOCK LEFT ANTERIOR FASCICULAR BLOCK BASELINE ARTIFACT- I, II, III, AVL ABNORMAL ECG No previous ECG available for comparison Electronically Signed On 09-21-2025 09:27:31 STRATEGY ANALYST by Bishnu Florence D.O.
--- NOTE | 2025-09-20 20:59 | ED.DIZZY ---
HPI - Dizziness General Chief Complaint: Dizziness Stated Complaint: VERTIGO, NAUSEA Time Seen by Provider: 09/20/25 20:50 History of Present Illness HPI Narrative: 80-year-old male with a past medical history including atrial fibrillation on Eliquis some metoprolol, hypertension, insulin-dependent diabetes, vertigo. Patient presents to the emergency department with vertiginous symptoms that started about 1 hour ago. Patient states he was in his basement feeling like he was getting was lightheaded and had a slight headache associated with some vertigo. He was able to climb up the stairs but felt like he was leaning towards 1 side. No weakness in the arms or legs. No sensory deficits. No speech changes or speech deficits. He states it feels very similar to his previous vertiginous episodes. He called EMS as he was nauseous and they administered Zofran he feels better but still slightly vertiginous this time. No headache, vision changes, nausea, abdominal pain, back pain, fever, chills, chest pain. No traumatic injuries. No weakness in the arms or legs or any ataxia or difficulties coordinating. No speech changes or phonation changes. States it feels like the last time he had peripheral vertigo and treated with medication. Related Data Home Medications ?Medication ?Instructions ?Recorded ?Confirmed ?Last Taken ?Type magnesium 200 mg tablet 400 mg PO DAILY 09/09/19 06/20/25 09/14/23 History omega 2-cuv-llx-fish oil 1,000 mg 1 cap PO DAILY 09/09/19 06/20/25 09/14/23 History (120 mg-180 mg) capsule (Fish Oil) apixaban 5 mg tablet (Eliquis) 5 mg PO BID 08/04/23 06/20/25 09/12/23 History clopidogrel 75 mg tablet 75 mg PO DAILY 11/25/23 06/20/25 Unknown History evolocumab 140 mg/mL subcutaneous 140 mg subcut ONCE 11/25/23 06/20/25 Unknown History pen injector (Sonny Katz) metoprolol tartrate 25 mg tablet 50 mg PO BID 11/25/23 06/20/25 Unknown History sacubitril 49 mg-valsartan 51 mg 1 tablet PO BID 11/25/23 06/20/25 Unknown History tablet (Entresto) dapagliflozin propanediol 10 mg 10 mg PO DAILY 12/05/24 06/20/25 Unknown History tablet (Farxiga) Allergies Allergy/AdvReac Type Severity Reaction Status Date / Time meperidine AdvReac Mild Confusion Verified 06/20/25 09:52 Enydrhu-HAI-LwG Reductase AdvReac Mild myalgias Verified 06/20/25 09:52 Inhibitor Review of Systems Review of Systems: As reviewed above in HPI All systems reviewed & are unremarkable except as noted in HPI and below PMFSH Past Medical History Medical History Visit for suture removal Sleep apnea in adult Screening PSA (prostate specific antigen) Other fatigue Neuropathy Left ear impacted cerumen Laceration Hypercholesteremia Essential (primary) hypertension Dietary counseling and surveillance (08/05/16) Chest pain Annual physical exam BMI 39.0-39.9,adult Cellulitis History of blood transfusion Diabetes Elbow fracture, right Arthritis Kidney stone CPAP (continuous positive airway pressure) dependence Sleep apnea HTN (hypertension) Afib Hyperlipidemia History of cardioversion x3 Peripheral neuropathy Tremor of both hands Cataracts, both eyes Surgical History Surgical History History of right hip replacement History of bilateral knee replacement H/O inguinal hernia repair H/O cardiac radiofrequency ablation Family History Family History Mother Diabetes mellitus Congestive heart failure Father Diabetes mellitus Malignant neoplasm of prostate Metastatic cancer to bone CAD (coronary artery disease) Sibling Brain cancer Other Patient's brother is in good health Patient's father is in good health Patient's mother is in good health Social History Social History Smoking status: Never smoker Second hand tobacco smoke exposure: No Alcohol intake: never Substance use: never Substance use type: does not use Lack of Transportation: No Lack of Food: Never True Current Housing: I Have Housing Concerned About Future Housing: No Difficulty Paying Gas/Electric Bills: No Difficulty Paying for Meds: No Currently Unemployed: No Education: High School Diploma/GED Difficulty w/ Childcare or Family Care: No Living arrangements: with family Gender identity (if verbalized by the patient): Male Spiritual care concerns: No Agree to blood products: Yes Exam Narrative: GENERAL: [Well-appearing, well-nourished, and in no acute distress.] HEAD: [Normocephalic, atraumatic.] EYES: [PERRLA and EOMI.] ENT: Nares clear, no rhinorrhea or epistaxis. Mucous membranes moist. NECK: Supple. CHEST: [Clear to auscultation. No respiratory distress.] HEART: Irregular rate and rhythm, normal pulses, warm extremities. ABDOMEN: [Soft, nondistended], [nontender], [No rigidity or guarding] EXTREMITIES: Normal range of motion. [No edema.] SKIN: Warm, dry, no rash. NEURO: No focal deficits. No ataxia in the arms or legs. No dysmetria, visual perdomo intact, pupils equal reactive to light. No strength or drift deficits in the arms or legs. No sensation changes in the face arms or legs. PSYCH: [Normal mood and affect.] Course Vital Signs Vital signs: Vital Signs Temperature 36.7 C 09/20/25 20:48 Pulse Rate 96 09/20/25 20:48 Respiratory Rate 20 09/20/25 20:48 Blood Pressure 133/89 09/20/25 20:48 Pulse Oximetry 95 09/20/25 20:48 Oxygen Delivery Room Air 09/20/25 20:48 Temperature 36.7 C 09/20/25 20:48 Pulse Rate 89 09/20/25 22:00 Respiratory Rate 18 09/20/25 22:00 Blood Pressure 132/89 09/20/25 22:00 Pulse Oximetry 97 09/20/25 22:00 Oxygen Delivery Room Air 09/20/25 20:48 [facility] MDM Narrative Medical decision making narrative: 80-year-old male with a past medical history including atrial fibrillation on Eliquis some metoprolol, hypertension, insulin-dependent diabetes, vertigo. Patient presents to the emergency department with vertiginous symptoms that started about 1 hour ago. Patient states he was in his basement feeling like he was getting was lightheaded and had a slight headache associated with some vertigo. He was able to climb up the stairs but felt like he was leaning towards 1 side. No weakness in the arms or legs. No sensory deficits. No speech changes or speech deficits. He states it feels very similar to his previous vertiginous episodes. He called EMS as he was nauseous and they administered Zofran he feels better but still slightly vertiginous this time. No headache, vision changes, nausea, abdominal pain, back pain, fever, chills, chest pain. No traumatic injuries. No weakness in the arms or legs or any ataxia or difficulties coordinating. No speech changes or phonation changes. States it feels like the last time he had peripheral vertigo and treated with medication. No focal deficits. No ataxia in the arms or legs. No dysmetria, visual perdomo intact, pupils equal reactive to light. No strength or drift deficits in the arms or legs. No sensation changes in the face arms or legs. Patient is overall very well-appearing not any distress. He has reassuring vital signs here without any tachycardia, fever, hypoxemia or blood pressure concerns. He has a normal neurological assessment. Suspect benign paroxysmal peripheral vertigo given his history of such. Low suspicion central pathology or central vertigo. He is on Eliquis which raises risk factors for bleeding. Low suspicion CVA given historical and clinical features. He was given meclizine and fluids and laboratory studies and a CT of the head were obtained. CT of the head unremarkable. Laboratory studies show some slight hemoconcentration likely dehydration. He was given fluid bolus here. Patient re-evaluated and felt significantly improved. No longer symptomatic. He is hemodynamically stable with an unremarkable workup otherwise. Safe for discharge in given a prescription for meclizine and instructions on hydration as well as return precautions and follow-up instructions. Differential Diagnosis Differential Diagnosis: Suspect benign paroxysmal peripheral vertigo given his history of such. Low suspicion central pathology or central vertigo. He is on Eliquis which raises risk factors for bleeding. Low suspicion CVA given historical and clinical features. Medical Records I have reviewed the following patient records and this information was taken into consideration when formulating the assessment and plan.: previous labs, previous ER visits, previous hospitalizations and previous clinic visits Lab Data MDM Lab Attestation statement: I personally reviewed the patient's lab results. 09/20/25 21:46 09/20/25 21:46 Labs: Lab Results 09/20/25 Range/Units 21:46 WBC 6.7 (4.5-10.0) K/mm3 RBC 5.83 (4.6-6.20) M/mm3 Hgb 17.4 (14.0-18.0) g/dL Hct 53.4 H (42.0-52.0) % MCV 91.6 (80-100) fl MCH 29.8 (26-34) pg MCHC 32.6 (32-36) g/dl RDW 13.8 (11.5-14.5) % Plt Count 138 L (150-375) k/mm3 MPV 10.4 (7.4-10.4) fl Immature Gran % (Auto) 0.6 H (0-0.5) % Neut % (Auto) 75.6 H (45.5-73.1) % Lymph % (Auto) 14.0 L (18.3-44.2) % Camp % (Auto) 7.6 (2.6-8.5) % Eos % (Auto) 1.8 (0-4.4) % Baso % (Auto) 0.4 (0.2-1.2) % Lymph # (Auto) 0.94 (0.9-3.2) K/mm3 Camp # (Auto) 0.5 (0.1-0.6) K/mm3 Eos # (Auto) 0.1 (0-0.3) K/mm3 Baso # (Auto) 0.0 (0.0-0.1) K/mm3 Abs Immat Gran (auto) 0.04 H (0.00-0.031) K/mm3 Absolute Neuts (auto) 5.1 (1.3-6.7) K/mm3 Absolute Nucleated RBC 0.000 (0.0-0.012) K/mm3 Nucleated RBC % 0.0 (0.0-0.2) % % Immature Plt Fraction 4.5 (0.9-11.2) % Sodium 136 L (137-145) mmol/L Potassium 4.5 (3.4-5.0) mmol/L Chloride 101 (98-107) mmol/L Carbon Dioxide 27 (22-30) mmol/L Anion Gap 8 (4-12) mmol/L BUN 36 H (9-20) mg/dL Creatinine 1.07 (0.7-1.3) mg/dL Estim Creat Clear Calc 65 ml/min Estimated GFR > 60 (59 - ) Glucose 188 H (65-110) mg/dL Calcium 9.1 (8.4-10.2) mg/dL Imaging Data Radiologist's impression: ITS Impressions Head CT 09/20/25 22:06 IMPRESSION: No acute intracranial hemorrhage or extra axial fluid collections. All CT scans at this facility are performed using low dose modulation techniques as appropriate to perform exam including the following: automated exposure control; use of iterative reconstruction technique; adjustment of the mA and/or kV according to patient size (this includes techniques or standardized protocols for targeted exams where dose is matched to indication/reason for exam). Discharge Plan Discharge Clinical Impression: Vertigo, Acute dehydration Patient Disposition: Home Condition: Stable Instructions: Antibiotic Form, Vertigo (ED) Additional Instructions: CT scan and laboratory studies are reassuring. You do have some slight dehydration which we corrected with fluids. Your CT of the head was unremarkable. Vertigo improved with medications and fluids. We have sent your prescription for the same medication we provided you here in case this occurs at home. Return with any emergent concerns or persistent/worsening symptoms. Follow-up with regular PCP otherwise. Patient Language: Turkmen Prescriptions: New meclizine 25 mg tablet 25 mg PO TID PRN (Reason: dizziness) 10 Days Qty: 30 0RF No Action Entresto 49-51 mg tablet 1 tablet PO BID clopidogrel 75 mg tablet 75 mg PO DAILY Repatha SureClick 140 mg/mL pen injector 140 mg subcut ONCE Rx Instructions: injection once every two weeks dapagliflozin propanediol [Farxiga] 10 mg tablet 10 mg PO DAILY magnesium 200 mg Tablet 400 mg PO DAILY omega 5-mqx-imc-fish oil [Fish Oil] 1,000 mg (120 mg-180 mg) Capsule 1 cap PO DAILY Rx Instructions: 1200mg metoprolol tartrate 25 mg tablet 50 mg PO BID Eliquis 5 mg tablet 5 mg PO BID (DME) blood sugar diagnostic Strip See Rx Instructions .ROUTE .MEDSUPPLY Qty: 360 3RF Rx Instructions: As directed--- test 4 times per day (DME) Blood Glucose Test Strip See Rx Instructions .ROUTE .MEDSUPPLY Qty: 350 2RF Rx Instructions: As directed - test 4 times a day (DME) lancets Misc See Rx Instructions .ROUTE .MEDSUPPLY Qty: 300 1RF Rx Instructions: As directed-- test QID (DME) OneTouch Ultra Test Strip See Rx Instructions .Route Qty: 100 3RF Rx Instructions: check blood sugar 3 times daily hydrochlorothiazide 25 mg tablet See Rx Instructions .ROUTE .COMPLEX Qty: 90 3RF Dose Instruction: TAKE 1 TABLET BY MOUTH DAILY Rx Instructions: TAKE 1 TABLET BY MOUTH DAILY insulin glargine U-300 conc [Toujeo Max U-300 SoloStar] 300 unit/mL (3 mL) insulin pen 26 unit subcut DAILY Qty: 9 3RF (DME) pen needle, diabetic 31 gauge x 3/16 needle See Rx Instructions .ROUTE .COMPLEX Qty: 100 0RF Dose Instruction: USE TO INJECT DIRECTED Rx Instructions: USE TO INJECT DIRECTED metformin 1,000 mg tablet See Rx Instructions .ROUTE .COMPLEX Qty: 180 2RF Dose Instruction: TAKE 1 TABLET BY MOUTH TWICE DAILY Rx Instructions: TAKE 1 TABLET BY MOUTH TWICE DAILY primidone 50 mg tablet 50 mg PO HS Qty: 90 2RF Follow-up/Referrals: Scott Grewal DO [Primary Care Provider, Internal Medicine] Time of Disposition: 23:03
[2025-09-20 21:00] VITALS: BP 161/100; PULSE 82; RESP 28; O2SAT 96
[2025-09-20] MEDS: LACTATED RINGERS 1,000 ML 999 ML IV CONT (21:00)
[2025-09-20] MEDS: MECLIZINE HCL 25 MG TABLET PO (21:04)
[2025-09-20 21:15] VITALS: BP 145/95; PULSE 87; RESP 20; O2SAT 94
[2025-09-20 21:55] LABS: Hematocrit 53.4 % (42.0-52.0); Hemoglobin 17.4 g/dL (14.0-18.0); Immature Granulocyte Percent A 0.6 % (0-0.5); Immature Platelet Fraction Pct 4.5 % (0.9-11.2); Lymphocytes Absolute Auto 0.94 K/mm3 (0.9-3.2); Mean Corpuscular HGB Conc 32.6 g/dl (32-36); Mean Corpuscular Hemoglobin 29.8 pg (26-34); Mean Corpuscular Volume 91.6 fl (80-100); Nucleated Red Blood Cells Absolute Auto 0.000 K/mm3 (0.0-0.012); Nucleated Red Blood Cells Perc 0.0 % (0.0-0.2); Platelet Count Result 138 k/mm3 (150-375); Red Blood Count 5.83 M/mm3 (4.6-6.20); White Blood Count 6.7 K/mm3 (4.5-10.0)
[2025-09-20 22:00] VITALS: BP 132/89; PULSE 89; RESP 18; O2SAT 97
[2025-09-20 22:05] LABS: Anion Gap 8 mmol/L (4-12); Blood Urea Nitrogen 36 mg/dL (9-20); Calcium 9.1 mg/dL (8.4-10.2); Carbon Dioxide 27 mmol/L (22-30); Chloride 101 mmol/L (98-107); Estimated CRCL calculation 65 ml/min; Estimated Glomerular Filt Rate > 60; Glucose 188 mg/dL (65-110); Potassium 4.5 mmol/L (3.4-5.0); Sodium 136 mmol/L (137-145)
--- OUTSIDE RECORDS SUMMARY | 2025-09-20 22:51 | XMS_ITS | Patient Health Record ---
[facility] Address [address] [place] [address] Care Team Providers Care Testing Machine Operator Name Role Phone SHITAL SORTO Unavailable [phone] Reason For Referral No Information Plan Of Treatment No Information Insurance Providers Payer Name Payer Address Payer Phone Subscriber Number Group Number Insured Name Patient Relationship to Insured Coverage Start Date Coverage End Date [employer] [address] [place] [address] [id number] Jurgen Davison Self - patient is the insured 4
--- OUTSIDE RECORDS SUMMARY | 2025-09-20 22:51 | XMS_ITS | Encounter Summary ---
Author Organization [facility] Address [address] [facility] [address] [place] [id number] Care Team Providers Care Sales Executive Insurance Name Role Phone Lucho Kirkpatrick MD Primary Care Provider [phone] Vinny Núñez MD Unavailable [phone] MD Unavailable [phone] Scott Grewal DO Primary Care Provider [phone] Encounter Details Date Type Department Care Team (Late st Contact Info) Description 03/05/2017 Orders Only [facility] Provider, MD John [address] [place] [address] Social History Tobacco Use Types Packs/Day Years Used Date Smoking Tobacco: Never Alcohol Use Standard Drinks/Week Comments No 0 (1 standard drink = 0.6 oz pur e alcohol) Sex and Gender Information Value Date Recorded Sex Assigned at Not on file Legal Sex Male 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 Gender Identity Not on file Sexual Orientation [...] on filedocumented in this encounter Care Teams Sales Executive Insurance Relationship Specialty Start Date End Date Lucho Kirkpatrick MD [address] [place] [address] PCP - General 02/21/16 06/02/24 [place] [address] [place] [address] PCP - General Internal Medicine 06/03/24 Vinny Núñez [place] [address] [place] [address] Consulting Physician Urology 11/11/[address] [place] [address] [place] [address] Surgeon Orthopedic Surgery 03/14/20 documented as of this encounter
== END 2025-09-20 23:42 | disposition home or self-care (01) ==
PROVIDERS: Emergency Provider Student in an Organized Health Care Education/Training Program; PCP Internal Medicine
DX: R42 Dizziness and giddiness (principal); E86.0 Dehydration; I10 Essential (primary) hypertension; E78.00 Pure hypercholesterolemia, unspecified; E11.42 Type 2 diabetes mellitus with diabetic polyneuropathy; G47.30 Sleep apnea, unspecified; M19.90 Unspecified osteoarthritis, unspecified site; H26.9 Unspecified cataract; Z96.641 Presence of right artificial hip joint; Z96.653 Presence of artificial knee joint, bilateral; Z87.442 Personal history of urinary calculi; Z79.01 Long term (current) use of anticoagulants; Z79.899 Other long term (current) drug therapy; Z79.4 Long term (current) use of insulin; Z79.84 Long term (current) use of oral hypoglycemic drugs; I45.2 Bifascicular block
CPT/HCPCS: 36415; 70450; 80048; 85025; 85055; 93005; 96360; 99284; A9270; J7120